=== PATIENT | male | born 1935 | race Caucasian/White ===

== ENCOUNTER → 2016-07-10 | Outpatient (CLI) | payer OTHER, MEDICARE ==
[~2016-07-10] MED LIST: ASPI-435 PO; LPT40 PO; LSX40 PO; MCRK20 PO; MGNO400 PO; MULT-506 PO; OMEGCAP2 PO; SYN25 PO; TPRSR/25 PO; ZRX5 PO
[2016-07-10 15:56] LABS: BLOOD UREA NITROGEN 64 mg/dl (7-18); BUN/CREATININE RATIO 37.5 (10-20); CALCIUM 9.2 mg/dl (8.5-10.1); CARBON DIOXIDE 32 mmol/L (21-32); CHLORIDE 102 mmol/L (98-107); GLUCOSE 94 mg/dl (70-99); SODIUM 141 mmol/L (136-145)
== END | disposition home or self-care (01) ==
LOC: C.LAB1850 13:59
PROVIDERS: ATTEND Internal Medicine Cardiovascular Disease
DX: I50.32 Chronic diastolic (congestive) heart failure (principal)

== ENCOUNTER → 2016-08-21 | Outpatient (CLI) | payer OTHER, MEDICARE ==
[2016-08-21 13:17] LABS: BLOOD UREA NITROGEN 33 mg/dl (7-18); BUN/CREATININE RATIO 23.4 (10-20); CALCIUM 9.3 mg/dl (8.5-10.1); CARBON DIOXIDE 28 mmol/L (21-32); CHLORIDE 108 mmol/L (98-107); GLUCOSE 101 mg/dl (70-99); POTASSIUM 4.5 mmol/L (3.5-5.1); SODIUM 143 mmol/L (136-145)
== END | disposition home or self-care (01) ==
LOC: C.LAB1850 11:52
PROVIDERS: ATTEND Internal Medicine Cardiovascular Disease
DX: I50.32 Chronic diastolic (congestive) heart failure (principal); N18.9 Chronic kidney disease, unspecified

== ENCOUNTER → 2016-10-12 | Outpatient (CLI) | payer OTHER, MEDICARE ==
[2016-10-12 14:41] LABS: HEMATOCRIT 47.3 % (42-52); MEAN CELL VOLUME 101.5 fL (80-100); MEAN CORPUSCULAR HEMOGLOBIN 33.9 pg (25-34); MEAN CORPUSCULAR HGB CONC 33.4 g/dl (32-36); MEAN PLATELET VOLUME 10.6 fL (7.4-10.4); PLATELET COUNT 154 K/uL (130-400); RED BLOOD COUNT 4.66 M/uL (4.7-6.1)
[2016-10-12 15:10] LABS: ALT/SGPT 29 U/L (12-78); AST/SGOT 31 U/L (15-37); BLOOD UREA NITROGEN 31 mg/dl (7-18); BUN/CREATININE RATIO 20.8 (10-20); CALCIUM 9.1 mg/dl (8.5-10.1); CARBON DIOXIDE 31 mmol/L (21-32); CHLORIDE 104 mmol/L (98-107); GLUCOSE 101 mg/dl (70-99); MAGNESIUM 2.3 mg/dl (1.8-2.4); POTASSIUM 4.4 mmol/L (3.5-5.1); SODIUM 141 mmol/L (136-145)
== END | disposition home or self-care (01) ==
LOC: C.LAB1850 13:48
PROVIDERS: ATTEND Internal Medicine Cardiovascular Disease
DX: I25.10 Atherosclerotic heart disease of native coronary artery without angina pectoris (principal); I50.32 Chronic diastolic (congestive) heart failure; N18.9 Chronic kidney disease, unspecified; I27.81 Cor pulmonale (chronic); I27.2 Other secondary pulmonary hypertension; Z95.2 Presence of prosthetic heart valve; I05.9 Rheumatic mitral valve disease, unspecified; I13.0 Hypertensive heart and chronic kidney disease with heart failure and stage 1 through stage 4 chronic kidney disease, or unspecified chronic kidney disease

== ENCOUNTER → 2017-03-05 | Outpatient (CLI) | payer OTHER, MEDICARE ==
[2017-03-05 12:54] LABS: BASO % 0.3 %; BASO ABS # 0.02 K/uL (0-0.2); IG% 0.5 %; LYMPH % 14.1 %; LYMPH ABS # 0.91 K/uL (1.2-3.4); MEAN CELL VOLUME 100.4 fL (80-100); MEAN CORPUSCULAR HEMOGLOBIN 33.5 pg (25-34); MEAN PLATELET VOLUME 10.3 fL (7.4-10.4); NEUT % 75.1 %; PLATELET COUNT 155 K/uL (130-400); RED BLOOD COUNT 4.68 M/uL (4.7-6.1); WHITE BLOOD COUNT 6.47 K/uL (4.8-10.8)
[2017-03-05 13:01] LABS: COMPLETE YES; MEAN CORPUSCULAR HGB CONC 33.4 g/dl (32-36)
[2017-03-05 13:09] LABS: C-REACTIVE PROTEIN 2.05 mg/dl (0-0.29); URIC ACID 9.8 mg/dl (2.6-7.2)
== END | disposition home or self-care (01) ==
LOC: C.LAB 12:28
PROVIDERS: ATTEND Physician Assistant
DX: M25.532 Pain in left wrist (principal)

== ENCOUNTER 2017-06-13 23:21 | Emergency (ER) | payer OTHER, MEDICARE ==
[~2017-06-13] VITALS: Ht 175.3 cm; Wt 78.7 kg
[2017-06-13 23:30] VITALS: O2SAT 82
[2017-06-13 23:38] VITALS: TEMP 36.4; Ht 175.3 cm; Wt 78.7 kg
[2017-06-13 23:57] LABS: BASO % 0.4 %; BASO ABS # 0.02 K/uL (0-0.2); EOS % 6.2 %; EOS ABS # 0.32 K/uL (0-0.5); HEMATOCRIT 47.3 % (42-52); HEMOGLOBIN 15.6 g/dL (14.0-18.0); IG# 0.01 K/uL (0.00-0.02); LYMPH % 24.7 %; LYMPH ABS # 1.28 K/uL (1.2-3.4); MEAN CELL VOLUME 102.8 fL (80-100); MEAN CORPUSCULAR HEMOGLOBIN 33.9 pg (25-34); MEAN PLATELET VOLUME 11.4 fL (7.4-10.4); MONO % 10.2 %; MONO ABS # 0.53 K/uL (0.11-0.59); NEUT % 58.3 %; NEUT ABS # 3.03 K/uL (1.4-6.5); PLATELET COUNT 172 K/uL (130-400); RED CELL DISTRIBUTION WIDTH CV 17.3 % (11.5-14.5); RED CELL DISTRIBUTION WIDTH SD 65.1 fL (36.4-46.3); WHITE BLOOD COUNT 5.19 K/uL (4.8-10.8)
[2017-06-14] MEDS ORDERED: ZRX5 PO (00:50)
[2017-06-14] MEDS ORDERED: POTA-639 PO (00:50)
[2017-06-14 01:11] LABS: BLOOD UREA NITROGEN 36 mg/dl (7-18); CREATININE 1.84 mg/dl (0.60-1.40); GLUCOSE 93 mg/dl (70-99)
[2017-06-14 01:12] LABS: ALBUMIN 2.8 gm/dl (3.4-5.0); ALT/SGPT 18 U/L (12-78); AST/SGOT 33 U/L (15-37); CALCIUM 8.3 mg/dl (8.5-10.1); CARBON DIOXIDE 26 mmol/L (21-32); POTASSIUM 3.4 mmol/L (3.5-5.1); SODIUM 140 mmol/L (136-145)
[2017-06-14 01:17] LABS: ALKALINE PHOSPHATASE 350 U/L (45-117); TOTAL PROTEIN 7.7 gm/dl (6.4-8.2)
[2017-06-14 01:20] LABS: INR 1.3 (0.9-1.1); PTT PATIENT 34.7 SECONDS (21.0-31.0)
--- NOTE | 2017-06-14 03:08 | EMERGENCY ROOM VISIT NOTE ---
History Report prepared by [place]: Inderjit Friend Under the Supervision of: Dr. Margarita James D.O. First contact with patient: 23:23 Chief Complaint: SYNCOPE Stated Complaint: SYNCOPAL EPISODE History of Present Illness The patient is a 81 year old male who presents to the Emergency Room by EMS with complaints of a syncopal episode occurring just prior to arrival. Per EMS, the patient was out drinking with his friends tonight, and upon arriving home had a syncopal episode. The patient admits to drinking 2-3 drinks tonight. Nursing staff notes that the patient's nail beds and skin appear blue, and his oxygen saturations are in the 80's on supplemental oxygen. The patient notes that he recently had his dosage of diuretics increased due to fluid retention. He adds that he had an episode of confusion prior to his syncopal episode. He denies feeling dizzy or lightheaded during the episode of confusion. The patient denies shortness of breath. He has a history of CABG. He is supposed to be on supplemental oxygen all the time, but admits that he does not wear it occasionally. The patient notes that he has a sore on his left foot which he has been picking at, but states that overall his legs appear normal for him. Source of History: patient, EMS, nursing staff Onset: Just prior to arrival Quality: other (syncope) Timing: other (episode) Note: Additional symptoms: confusion prior to episode. He denies lightheadedness, or dizziness. Review of Systems See HPI for pertinent positives & negatives. A total of 10 systems reviewed and were otherwise negative. Past Medical & Surgical Medical Problems: (1) Aortic regurgitation (2) CAD (coronary artery disease) (3) CHF (congestive heart failure) (4) Chronic right-sided CHF (congestive heart failure) (5) CKD (chronic kidney disease), stage IV (6) Cor pulmonale (7) Dyslipidemia (8) Hypertension (9) Pulmonary HTN (10) Pulmonary hypertension Surgical Problems: (1) History of nasal surgery (2) Hx of tonsillectomy (3) S/P CABG x 4 (4) Status post mitral valve replacement Family History No pertinent family history Social History Smoking Status: Former Smoker Alcohol Use: none Drug Use: none Marital Status: Housing Status: lives with family Occupation Status: retired Current/Historical Medications Scheduled Aspirin (Aspirin 81), 162 MG PO DAILY Atorvastatin (Atorvastatin Calcium), 40 MG PO DAILY Furosemide (Furosemide), 80 MG PO BID Magnesium Oxide (Magnesium-Oxide), 400 MG PO QAM Metolazone (Metolazone), 5 MG PO DAILY Metoprolol Succinate (Metoprolol Succinate ER), 25 MG PO Q2D Potassium Ext Rel (Klor-Con), 40 MEQ PO BID Allergies Coded Allergies: No Known Allergies (Unverified , 06/14/17) Physical Exam Vital Signs Date Time Temp Pulse Resp B/P (MAP) Pulse Ox O2 Delivery O2 Flow Rate FiO2 06/14/17 03:39 71 18 131/81 93 06/14/17 03:05 81 06/14/17 02:09 94 16 116/77 94 Nasal Cannula 2.0 97 126/82 98 125/82 06/14/17 00:38 74 18 107/53 96 Non-Rebreather 15.0 06/13/17 23:38 36.4 73 18 95/56 95 Non-Rebreather 15.0 06/13/17 23:30 82 Nasal Cannula 4.0 06/13/17 23:29 78 Physical Exam GENERAL: alert, well appearing, well nourished, no distress, non-toxic EYE EXAM: normal conjunctiva, PERRL and EOM's grossly intact OROPHARYNX: no exudate, no erythema, lips, buccal mucosa, and tongue normal and mucous membranes are moist NECK: supple, no nuchal rigidity, no adenopathy, non-tender LUNGS: Clear to auscultation. Normal chest wall mechanics HEART: no murmurs, S1 normal and S2 normal ABDOMEN: abdomen soft, non-tender, normo-active bowel sounds, no masses, no rebound or guarding. BACK: Back is symmetrical on inspection and there is no deformity, no midline tenderness, no CVA tenderness. SKIN: no rashes and no bruising UPPER EXTREMITIES: upper extremities are grossly normal. LOWER EXTREMITIES: Chronic venous stasis changes bilaterally. Diminished DP pulses bilaterally but equal. 4 cm healing wound to the anterior aspect of the distal RLE. No surrounding, erythema or drainage. NEURO EXAM: Normal sensorium, cranial nerves II-XII grossly intact, normal speech, no gross weakness of arms, no gross weakness of legs. Medical Decision & Procedures ER Provider Diagnostic Interpretation: One View Chest X-ray interpreted by me: No effusions. Mild cardiomegaly. Sternotomy wires noted. No focal infiltrate. No wide mediastinum. No significant change compared to prior. CT results per statrad and my review. CT HEAD: No acute intracranial hemorrhage. No evidence of intracranial mass, extra-axial fluid collection, or acute territorial infarct. White matter hypodensities, which are nonspecific but most likely related to chronic small vessel ischemic changes. Global cerebral volume loss. Visualized paranasal sinuses and mastoid air cells are clear. Laboratory Results 06/13/17 23:33 Red Blood Count 4.60, Mean Corpuscular Volume 102.8, Mean Corpuscular Hemoglobin 33.9, Mean Corpuscular Hemoglobin Concent 33.0, Mean Platelet Volume 11.4, Neutrophils (%) (Auto) 58.3, Lymphocytes (%) (Auto) 24.7, Monocytes (%) ( Auto) 10.2, Eosinophils (%) (Auto) 6.2, Basophils (%) (Auto) 0.4, Neutrophils # (Auto) 3.03, Lymphocytes # (Auto) 1.28, Monocytes # (Auto) 0.53, Eosinophils # ( Auto) 0.32, Basophils # (Auto) 0.02 06/14/17 00:09 Test 06/13/17 23:33 06/14/17 00:09 06/14/17 01:03 06/14/17 03:02 White Blood Count 5.19 K/uL (4.8-10.8) Red Blood Count 4.60 M/uL (4.7-6.1) Hemoglobin 15.6 g/dL (14.0-18.0) Hematocrit 47.3 % (42-52) Mean Corpuscular Volume 102.8 fL (80-100) Mean Corpuscular Hemoglobin 33.9 pg (25-34) Mean Corpuscular Hemoglobin Concent 33.0 g/dl (32-36) Platelet Count 172 K/uL (130-400) Mean Platelet Volume 11.4 fL (7.4-10.4) Neutrophils (%) (Auto) 58.3 % Lymphocytes (%) (Auto) 24.7 % Monocytes (%) (Auto) 10.2 % Eosinophils (%) (Auto) 6.2 % Basophils (%) (Auto) 0.4 % Neutrophils # (Auto) 3.03 K/uL (1.4-6.5) Lymphocytes # (Auto) 1.28 K/uL (1.2-3.4) Monocytes # (Auto) 0.53 K/uL (0.11-0.59) Eosinophils # (Auto) 0.32 K/uL (0-0.5) Basophils # (Auto) 0.02 K/uL (0-0.2) RDW Standard Deviation 65.1 fL (36.4-46.3) RDW Coefficient of Variation 17.3 % (11.5-14.5) Immature Granulocyte % (Auto) 0.2 % Immature Granulocyte # (Auto) 0.01 K/uL (0.00-0.02) Anion Gap 10.0 mmol/L (3-11) Est Creatinine Clear Calc Drug Dose 32.0 ml/min Estimated GFR () 39.2 Estimated GFR (Non- 33.9 BUN/Creatinine Ratio 19.5 (10-20) Calcium Level 8.3 mg/dl (8.5-10.1) Magnesium Level 2.3 mg/dl (1.8-2.4) Total Bilirubin 2.1 mg/dl (0.2-1) Aspartate Amino Transf (AST/SGOT) 33 U/L (15-37) Alanine Aminotransferase (ALT/SGPT) 18 U/L (12-78) Alkaline Phosphatase 350 U/L (45-117) Troponin I < 0.015 ng/ml (0-0.045) Pro-B-Type Natriuretic Peptide 2020 pg/ml (0-1800) Total Protein 7.7 gm/dl (6.4-8.2) Albumin 2.8 gm/dl (3.4-5.0) Globulin 4.9 gm/dl (2.5-4.0) Albumin/Globulin Ratio 0.6 (0.9-2) Ethyl Alcohol mg/dL 160.0 mg/dl (0-3) Prothrombin Time 14.0 SECONDS (9.0-12.0) Prothromb Time International Ratio 1.3 (0.9-1.1) Activated Partial Thromboplast Time 34.7 SECONDS (21.0-31.0) Partial Thromboplastin Ratio 1.3 Bedside Troponin I < 0.030 ng/ml (0-0.045) Laboratory results per my review. ECG Indication: syncope Rate (beats per minute): 77 Rhythm: normal sinus Findings: RBBB, T-wave inversion (V1-V5, 2, 3, and AVF), other (RAD. ) Comparison ECG Date: Apr 18, 2016 Change: T-wave inversion in V5 is new. ED Course 2327: The patient was evaluated in room A2. A complete history and physical exam was performed. 0206: I reassessed the patient. He feels fine. He has ambulated without problem and would like to go home. now bedside and provided additional information. 0320: Upon reevaluation, the patient is feeling better. I discussed the findings and the treatment plan with the patient. He verbalizes agreement and understanding. The patient was discharged home. Medical Decision Differential diagnosis: Etiologies such as metabolic, infection, hypoglycemia, electrolyte abnormalities , cardiac sources, intracerebral event, toxicologic, neurologic, as well as others were entertained. Patient's vital signs stable throughout, patient well-appearing, and oxygen saturations within acceptable range for patient on his usual amount of home oxygen. Patient admits to being noncompliant with wearing his home oxygen. Patient admits to alcohol this evening, denies syncopal event or any other symptoms. Upon additional discussion with the , she stated patient began appearing weak it was hard to walk seemed slightly confused and she was unsure if it was him having a stroke or related to his alcohol use. Discussed all symptoms with the patient and at bedside. Patient ambulated here with a steady gait, and denied any symptoms during ambulation. Orthostatics negative. Advised against alcohol consumption given his extensive medical history including significant cardiac comorbidity. Patient had no focal or lateralizing findings on neuro exam at bedside. I did not feel patient suffered a stroke. I feel this is more likely related to patient's alcohol consumption this evening. Patient's other labs appear stable compared to prior lab work. No evidence of acute infectious etiology. Troponins negative 2 and patient with no symptoms to suggest ACS. Doubt acute vascular etiology. comfortable taking the patient home. Discussed with follow-up with family doctor as a precaution, symptoms to watch and return for, he verbalized understanding and was agreeable with plan. Medication Reconcilliation Current Medication List: was personally reviewed by me Blood Pressure Screening Patient's blood pressure: Normal blood pressure Blood pressure disposition: Did not require urgent referral Impression Primary Impression: Alcohol intoxication Additional Impression: Near syncope Scribe Attestation The scribe's documentation has been prepared under my direction and personally reviewed by me in its entirety. I confirm that the note above accurately reflects all work, treatment, procedures, and medical decision making performed by me. Departure Information Dispostion Home / Self-Care Referrals Camden Robertson P.A. (PCP) Patient Instructions My [facility] Additional Instructions Please continue regular medications as prescribed. Please be careful when consuming alcohol given your significant past medical history and current medication list. Please follow up with your family doctor as a precaution. If you have any recurrent episodes similar to tonight, develop confusion, lightheadedness, feel unsteady when you walk, develop chest pain, trouble breathing, vomiting, headaches, vision changes, notice redness or drainage from the wound on your right leg, have increased swelling in her lower extremities, or you've any other new concerns, please return the emergency room. Problem Qualifiers Primary Impression: Alcohol intoxication Complication of substance-induced condition: uncomplicated Qualified Codes: F10.920 - Alcohol use, unspecified with intoxication, uncomplicated
[2017-06-14 03:39] VITALS: BP 131/81; PULSE 71; O2SAT 93
--- NOTE | 2017-06-14 09:36 | DIAGNOSTIC IMAGING REPORT ---
CT SCAN OF THE BRAIN WITHOUT IV CONTRAST CLINICAL HISTORY: Change in mental status. Syncope. COMPARISON STUDY: No priors. TECHNIQUE: Unenhanced axial CT scan of the brain is performed from the vertex to the skull base. A dose lowering technique was utilized adhering to the principles of ALARA. CT DOSE: 614.27 mGy.cm FINDINGS: Brain parenchyma: There are age-related involutional changes noting moderate subcortical and periventricular microangiopathic change. There is no hemorrhage, mass effect, or evidence of acute territorial ischemia by CT criteria. Small chronic lacunar infarcts identified in the right cerebellar hemisphere. Douglass-white matter is preserved. No extra-axial fluid collection is seen. Ventricles, sulci, cisterns: Prominent secondary to involutional change. Intracranial vasculature: There is atherosclerotic calcification of the cavernous carotid and vertebral arteries. Calvarium: Unremarkable. Sinuses and mastoids: Trace mucosal thickening is seen within the maxillary antra. The remaining visualized paranasal sinuses are clear. There is a trace right mastoid effusion. The left mastoid air cells are well pneumatized. Orbits: The bony orbits are grossly intact. IMPRESSION: There is no hemorrhage, mass effect, or evidence of acute territorial ischemia by CT criteria. Electronically signed by: Tej Lu M.D. 06/14/2017 9:35 AM Dictated Date/Time: 06/14/2017 9:33 AM
--- NOTE | 2017-06-14 10:33 | DIAGNOSTIC IMAGING REPORT ---
SINGLE VIEW CHEST CLINICAL HISTORY: Hypoxia. FINDINGS: An AP, portable, upright chest radiograph is compared to study dated 05/14/2016. The examination is significantly degraded by portable technique and patient rotation. The patient is status post midline sternotomy and cardiac valve surgery. The heart is enlarged and there is atherosclerotic calcification of the thoracic aorta. There is mild prominence of the central pulmonary vessels. Chronic elevation of right hemidiaphragm and bibasilar atelectasis is similar to previous. No airspace consolidation or large pleural effusion is identified. No pneumothorax is seen. The skeletal structures are osteopenic. The bony thorax is grossly intact. IMPRESSION: 1. Cardiomegaly with prominence of the central pulmonary vessels. Correlate clinically for evidence of mild congestive change. 2. No airspace consolidation or large pleural effusion is identified. Electronically signed by: Tej Lu M.D. 06/14/2017 10:31 AM Dictated Date/Time: 06/14/2017 10:28 AM
[2017-09-06] MEDS ORDERED: CEPH500C PO (08:03)
[2017-09-17] MEDS ORDERED: ELQ25 PO (10:31)
[2017-09-17] MEDS ORDERED: POTA10PO PO (10:31)
[2017-09-17] MEDS ORDERED: TPRSR25 PO (10:31)
[2017-09-17] MEDS ORDERED: ASPI-320 PO (10:32)
[2017-09-17] MEDS ORDERED: DXY100 PO (11:25)
[2017-10-15] MEDS ORDERED: PRD/1 PO (13:21)
== END 2017-06-14 03:39 | disposition home or self-care (01) ==
LOC: EDBD 23:21 → C.EDA 23:23
DX: F10.920 Alcohol use, unspecified with intoxication, uncomplicated (principal); R55 Syncope and collapse; I25.10 Atherosclerotic heart disease of native coronary artery without angina pectoris; I13.0 Hypertensive heart and chronic kidney disease with heart failure and stage 1 through stage 4 chronic kidney disease, or unspecified chronic kidney disease; N18.4 Chronic kidney disease, stage 4 (severe); I27.20 Pulmonary hypertension, unspecified; E78.5 Hyperlipidemia, unspecified; I50.812 Chronic right heart failure; Z91.19 Patient's noncompliance with other medical treatment and regimen; Z87.891 Personal history of nicotine dependence; Z95.1 Presence of aortocoronary bypass graft; Z95.2 Presence of prosthetic heart valve; Z90.89 Acquired absence of other organs; Z98.890 Other specified postprocedural states; Z79.82 Long term (current) use of aspirin; Z79.899 Other long term (current) drug therapy

== ENCOUNTER → 2017-07-28 | Outpatient (CLI) | payer OTHER, MEDICARE ==
[~2017-07-28] MED LIST changes: -MCRK20 PO; -MULT-506 PO; -OMEGCAP2 PO; +POTA20TA16 PO; -SYN25 PO
[2017-07-28 14:43] LABS: HEMATOCRIT 50.6 % (42-52); MEAN CELL VOLUME 103.3 fL (80-100); MEAN CORPUSCULAR HEMOGLOBIN 34.7 pg (25-34); MEAN CORPUSCULAR HGB CONC 33.6 g/dl (32-36); MEAN PLATELET VOLUME 10.8 fL (7.4-10.4); PLATELET COUNT 169 K/uL (130-400); RED CELL DISTRIBUTION WIDTH CV 15.8 % (11.5-14.5); WHITE BLOOD COUNT 6.37 K/uL (4.8-10.8)
[2017-07-28 15:04] LABS: ALT/SGPT 19 U/L (12-78); AST/SGOT 31 U/L (15-37); BLOOD UREA NITROGEN 31 mg/dl (7-18); CALCIUM 9.2 mg/dl (8.5-10.1); CARBON DIOXIDE 27 mmol/L (21-32); CHOLESTEROL 85 mg/dl (0-200); CREATININE 1.48 mg/dl (0.60-1.40); GLUCOSE 68 mg/dl (70-99); POTASSIUM 3.9 mmol/L (3.5-5.1); SODIUM 139 mmol/L (136-145)
[2017-07-28 15:07] LABS: LDL CHOLESTEROL CALCULATED 28 mg/dl
== END | disposition home or self-care (01) ==
LOC: C.LAB1850 13:00
PROVIDERS: ATTEND Internal Medicine Cardiovascular Disease
DX: E78.5 Hyperlipidemia, unspecified (principal); I27.20 Pulmonary hypertension, unspecified; N18.9 Chronic kidney disease, unspecified; I05.9 Rheumatic mitral valve disease, unspecified; I50.32 Chronic diastolic (congestive) heart failure; I27.81 Cor pulmonale (chronic)

== ENCOUNTER 2017-09-14 12:12 | Inpatient (IN) | payer OTHER, MEDICARE ==
[2017-09-14] VITALS (9 sets, daily range): BP systolic 87–100; BP diastolic 56–66; PULSE 86–97; TEMP 36.3–36.7; O2SAT 80–91; BMI 28.2
[~2017-09-14] VITALS: Ht 175.3 cm; Wt 86.7 kg
[~2017-09-14 12:12] MED LIST changes: +CEPH500C PO
[2017-09-14] MEDS ORDERED: POTA10PO PO (12:45)
--- NOTE | 2017-09-14 12:53 | DIAGNOSTIC IMAGING REPORT ---
CHEST ONE VIEW PORTABLE CLINICAL HISTORY: 81 years-old Male presenting with Sepsis. TECHNIQUE: Portable upright AP view of the chest was obtained. COMPARISON: 06/13/2017. FINDINGS: Median sternotomy wires and prosthetic mitral valve noted. Cardiac silhouette mildly enlarged. Chronic elevation of the left hemidiaphragm. No focal opacity. No large effusion or pneumothorax. Osseous structures normal. Upper abdomen normal. IMPRESSION: 1. Mild cardiomegaly. Otherwise no acute cardiopulmonary disease. Electronically signed by: Boris Fleming M.D. 09/14/2017 12:52 PM Dictated Date/Time: 09/14/2017 12:50 PM
[2017-09-14 12:54] LABS: BASO % 0.1 %; BASO ABS # 0.02 K/uL (0-0.2); EOS % 0.1 %; EOS ABS # 0.01 K/uL (0-0.5); HEMATOCRIT 47.8 % (42-52); HEMOGLOBIN 16.4 g/dL (14.0-18.0); IG# 0.04 K/uL (0.00-0.02); LYMPH % 4.8 %; LYMPH ABS # 0.75 K/uL (1.2-3.4); MEAN CELL VOLUME 99.2 fL (80-100); MEAN CORPUSCULAR HGB CONC 34.3 g/dl (32-36); MEAN PLATELET VOLUME 10.3 fL (7.4-10.4); MONO % 6.3 %; MONO ABS # 0.98 K/uL (0.11-0.59); NEUT % 88.4 %; NEUT ABS # 13.69 K/uL (1.4-6.5); PLATELET COUNT 139 K/uL (130-400); RED CELL DISTRIBUTION WIDTH CV 16.8 % (11.5-14.5); WHITE BLOOD COUNT 15.49 K/uL (4.8-10.8)
[2017-09-14] MEDS ORDERED: ONDANSETRON INJ 2 MG/ML 2 ML VIAL ONE (13:13)
[2017-09-14 13:21] LABS: ALBUMIN 2.2 gm/dl (3.4-5.0); ALKALINE PHOSPHATASE 283 U/L (45-117); ALT/SGPT 26 U/L (12-78); BLOOD UREA NITROGEN 37 mg/dl (7-18); CALCIUM 8.3 mg/dl (8.5-10.1); CARBON DIOXIDE 21 mmol/L (21-32); CKMB 8.1 ng/ml (0.5-3.6); CREATININE 1.64 mg/dl (0.60-1.40); GLUCOSE 88 mg/dl (70-99); LIPASE 67 U/L (73-393); PHOSPHORUS 3.3 mg/dl (2.5-4.9); SODIUM 135 mmol/L (136-145); TOTAL PROTEIN 6.4 gm/dl (6.4-8.2)
[2017-09-14] MEDS ORDERED: OPTIRAY 320 IV PRN (13:30)
--- NOTE | 2017-09-14 14:11 | DIAGNOSTIC IMAGING REPORT ---
CT ANGIOGRAM OF THE CHEST CLINICAL HISTORY: Shortness of breath. Possible pulmonary embolism. COMPARISON STUDY: Chest x-ray dated 09/14/2017 TECHNIQUE: Following the IV administration of 116 mL of [id number]-320, CT angiogram of the thorax was performed from the thoracic inlet to the lung bases utilizing the pulmonary embolus protocol. Images are reviewed in the axial, sagittal, and coronal planes. IV contrast was administered without complication. MIP imaging was performed. A dose lowering technique was utilized adhering to the principles of ALARA. CT DOSE: 500.98 mGycm FINDINGS: There are postsurgical changes of midline sternotomy and mitral valve replacement. Mediastinal lymph nodes are the upper limits of normal in size. There is elevation of the right hemidiaphragm. There was no evidence of thoracic aortic dilatation. There is suboptimal opacification of the lower lobe peripheral branches. No central or upper lobe emboli are visualized. There is a small right pleural effusion Right lower lobe airspace opacities are likely atelectatic. The left lung is clear. There is trace ascites. IMPRESSION: 1. Suboptimal lower lobe pulmonary arterial opacification. No central emboli are visualized. If there is a strong suspicion over pulmonary embolism, correlation with serial leg ultrasonography would be recommended. 2. Elevation right hemidiaphragm. Small right pleural effusion. Right basilar airspace opacities likely representing compressive atelectasis 3. Trace ascites Electronically signed by: Pj Poe M.D. 09/14/2017 2:09 PM Dictated Date/Time: 09/14/2017 2:04 PM
[2017-09-14 14:21] LABS: INR 1.5 (0.9-1.1); PTT PATIENT 33.4 SECONDS (21.0-31.0)
[2017-09-14 14:24] LABS: POTASSIUM 4.1 mmol/L (3.5-5.1)
[2017-09-14] MEDS ORDERED: SODIUM CHLORIDE 0.9% 1000ML 1,000 ML IV STA (14:52)
[2017-09-14] MEDS ORDERED: CEFTRIAXONE SOD INJ 1 GM ADDVIAL IV STA (14:52)
[2017-09-14] MEDS ORDERED: SODIUM CHLORIDE 0.9% 500ML 500 ML IV STA (14:54)
--- NOTE | 2017-09-14 14:59 | EMERGENCY ROOM VISIT NOTE ---
History Report prepared by [place]: Inderjit Friend Under the Supervision of: Dr. Clive Tee D.O. First contact with patient: 12:18 Chief Complaint: SHORTNESS OF BREATH Stated Complaint: SOB History of Present Illness The patient is a 81 year old male who presents to the Emergency Room by EMS with complaints of constant shortness of breath beginning about a year ago. He has a history of CHF. He is supposed to be on 2 L of supplemental oxygen at home , but has not been wearing it. The patient's oxygen saturation was found to be 75% on room air today. He notes that he has a wound on his right leg which he sees the wound clinic for once a week. His shortness of breath is not worsened with laying flat, or movement. The patient denies any fevers, or cough. He notes that he urinated many times last night. He is not on any blood thinners. The patient had CABGx4 a few years ago and has been supposed to be on oxygen since then. He most recently took his Lasix one week ago. He is supposed to be on Keflex for the wound infection of his right leg, but has not been taking it. The patient adds that he had swelling to his penis last night. Source of History: patient Onset: About a year ago Symptom Intensity: oxygen saturation of 75% today Quality: other (shortness of breath) Timing: constant Associated Symptoms: + urinary symptoms (increased frequency last night), No fevers, No cough Note: Additional symptoms: penile swelling. Review of Systems See HPI for pertinent positives & negatives. A total of 10 systems reviewed and were otherwise negative. Past Medical & Surgical Medical Problems: (1) Acute respiratory failure (2) Aortic regurgitation (3) CAD (coronary artery disease) (4) CHF (congestive heart failure) (5) Chronic right-sided CHF (congestive heart failure) (6) CKD (chronic kidney disease), stage IV (7) Cor pulmonale (8) Dyslipidemia (9) Hypertension (10) Pulmonary HTN (11) Pulmonary hypertension Surgical Problems: (1) History of nasal surgery (2) Hx of tonsillectomy (3) S/P CABG x 4 (4) Status post mitral valve replacement Family History No pertinent family history Social History Smoking Status: Never Smoker Alcohol Use: none Drug Use: none Marital Status: Housing Status: lives with family Occupation Status: retired Current/Historical Medications Scheduled Aspirin (Aspirin 81), 162 MG PO DAILY Atorvastatin (Lipitor), 40 MG PO DAILY Furosemide (Furosemide), 80 MG PO BID Magnesium Oxide (Magnesium-Oxide), 400 MG PO QAM Metolazone (Metolazone), 5 MG PO DAILY Metoprolol Succinate (Metoprolol Succinate ER), 25 MG PO BID Potassium Chloride (Potassium Chloride), 20 MEQ PO DAILY Allergies Coded Allergies: No Known Allergies (Unverified , 09/14/17) Physical Exam Vital Signs Date Time Temp Pulse Resp B/P (MAP) Pulse Ox O2 Delivery O2 Flow Rate FiO2 09/14/17 16:00 93 18 91 Oxymask 8.0 09/14/17 15:31 89/64 09/14/17 15:30 95 22 90 Oxymask 8.0 09/14/17 15:01 82/56 09/14/17 15:00 92 19 93 Oxymask 8.0 09/14/17 14:34 93 16 83/58 92 Oxymask 8.0 09/14/17 13:59 94 16 94/65 87 Oxymask 8.0 09/14/17 13:00 97 18 81/57 85 Oxymask 8.0 09/14/17 12:31 84 Oxymask 8.0 09/14/17 12:24 102 09/14/17 12:21 75 Room Air 09/14/17 12:21 37.0 103 18 83/57 75 Room Air 09/14/17 12:21 75 Room Air Physical Exam GENERAL: Patient is awake, alert, and very anxious appearing. Appears to be in significant distress. EYES: The conjunctivae are clear. The pupils are round and reactive. EARS, NOSE, MOUTH AND THROAT: The nose is without any evidence of any deformity. Mucous membranes are moist, tongue is midline. Cyanotic lips. NECK: The neck is nontender and supple. RESPIRATORY: Diminished lung sounds throughout. Significant tachypnea and conversational dyspnea,. CARDIOVASCULAR: Loud systolic murmur to auscultation. Tachycardic rate. GASTROINTESTINAL: The abdomen is soft. Bowel sounds are present in all quadrants. Abdomen is nontender : Significant scrotal and penile swelling noted on exam. MUSCULOSKELETAL/EXTREMITIES: There is no evidence of gross deformity full range of motion is noted in the hips and shoulders SKIN: There is no obvious evidence of any rash. There are no petechiae, pallor or cyanosis noted. Pedal edema bilaterally, right greater than left. Edema wrap noted in RLE. NEUROLOGIC: Patient is awake alert and oriented x3. Medical Decision & Procedures ER Provider Diagnostic Interpretation: Radiology results as stated below per my review and radiologist interpretation: CHEST ONE VIEW PORTABLE FINDINGS: Median sternotomy wires and prosthetic mitral valve noted. Cardiac silhouette mildly enlarged. Chronic elevation of the left hemidiaphragm. No focal opacity. No large effusion or pneumothorax. Osseous structures normal. Upper abdomen normal. IMPRESSION: 1. Mild cardiomegaly. Otherwise no acute cardiopulmonary disease. Electronically signed by: Boris Fleming M.D. 09/14/2017 12:[address] ANGIOGRAM OF THE CHEST FINDINGS: There are postsurgical changes of midline sternotomy and mitral valve replacement. Mediastinal lymph nodes are the upper limits of normal in size. There is elevation of the right hemidiaphragm. There was no evidence of thoracic aortic dilatation. There is suboptimal opacification of the lower lobe peripheral branches. No central or upper lobe emboli are visualized. There is a small right pleural effusion Right lower lobe airspace opacities are likely atelectatic. The left lung is clear. There is trace ascites. IMPRESSION: 1. Suboptimal lower lobe pulmonary arterial opacification. No central emboli are visualized. If there is a strong suspicion over pulmonary embolism, correlation with serial leg ultrasonography would be recommended. 2. Elevation right hemidiaphragm. Small right pleural effusion. Right basilar airspace opacities likely representing compressive atelectasis 3. Trace ascites Electronically signed by: Pj Poe M.D. 09/14/2017 2:09 PM Laboratory Results 09/14/17 12:41 Red Blood Count 4.82, Mean Corpuscular Volume 99.2, Mean Corpuscular Hemoglobin 34.0, Mean Corpuscular Hemoglobin Concent 34.3, Mean Platelet Volume 10.3, Neutrophils (%) (Auto) 88.4, Lymphocytes (%) (Auto) 4.8, Monocytes (%) (Auto) 6.3, Eosinophils (%) (Auto) 0.1, Basophils (%) (Auto) 0.1, Neutrophils # (Auto) 13.69, Lymphocytes # (Auto) 0.75, Monocytes # (Auto) 0.98, Eosinophils # (Auto) 0.01, Basophils # (Auto) 0.02 09/14/17 12:41 09/14/17 13:30 Test 09/14/17 12:41 09/14/17 12:46 09/14/17 12:55 09/14/17 13:30 White Blood Count 15.49 K/uL (4.8-10.8) Red Blood Count 4.82 M/uL (4.7-6.1) Hemoglobin 16.4 g/dL (14.0-18.0) Hematocrit 47.8 % (42-52) Mean Corpuscular Volume 99.2 fL (80-100) Mean Corpuscular Hemoglobin 34.0 pg (25-34) Mean Corpuscular Hemoglobin Concent 34.3 g/dl (32-36) Platelet Count 139 K/uL (130-400) Mean Platelet Volume 10.3 fL (7.4-10.4) Neutrophils (%) (Auto) 88.4 % Lymphocytes (%) (Auto) 4.8 % Monocytes (%) (Auto) 6.3 % Eosinophils (%) (Auto) 0.1 % Basophils (%) (Auto) 0.1 % Neutrophils # (Auto) 13.69 K/uL (1.4-6.5) Lymphocytes # (Auto) 0.75 K/uL (1.2-3.4) Monocytes # (Auto) 0.98 K/uL (0.11-0.59) Eosinophils # (Auto) 0.01 K/uL (0-0.5) Basophils # (Auto) 0.02 K/uL (0-0.2) RDW Standard Deviation 61.0 fL (36.4-46.3) RDW Coefficient of Variation 16.8 % (11.5-14.5) Immature Granulocyte % (Auto) 0.3 % Immature Granulocyte # (Auto) 0.04 K/uL (0.00-0.02) Erythrocyte Sedimentation Rate 26 mm/hr (0-14) Anion Gap 9.0 mmol/L (3-11) Est Creatinine Clear Calc Drug Dose 40.7 ml/min Estimated GFR () 45.1 Estimated GFR (Non- 38.9 BUN/Creatinine Ratio 22.5 (10-20) Calcium Level 8.3 mg/dl (8.5-10.1) Phosphorus Level 3.3 mg/dl (2.5-4.9) Total Bilirubin 3.6 mg/dl (0.2-1) Alanine Aminotransferase (ALT/SGPT) 26 U/L (12-78) Alkaline Phosphatase 283 U/L (45-117) Creatine Kinase MB 8.1 ng/ml (0.5-3.6) Creatine Kinase MB Ratio (0-3.0) Troponin I 0.949 ng/ml (0-0.045) C-Reactive Protein 4.97 mg/dl (0-0.29) Pro-B-Type Natriuretic Peptide 9792 pg/ml (0-1800) Total Protein 6.4 gm/dl (6.4-8.2) Albumin 2.2 gm/dl (3.4-5.0) Globulin 4.2 gm/dl (2.5-4.0) Albumin/Globulin Ratio 0.5 (0.9-2) Lipase 67 U/L (73-393) Bedside Lactic Acid Venous 2.79 mmol/L (0.90-1.70) Venous Blood pH 7.45 (7.36-7.41) Venous Blood Partial Pressure CO2 36 mmHg (38.0-50.0) Venous Blood Partial Pressure O2 26 mmHg Venous Blood HCO3 24 mmol/L Venous Blood Oxygen Saturation < 60.0 % Venous Blood Base Excess 0.6 mEq/L Prothrombin Time 15.9 SECONDS (9.0-12.0) Prothromb Time International Ratio 1.5 (0.9-1.1) Activated Partial Thromboplast Time 33.4 SECONDS (21.0-31.0) Partial Thromboplastin Ratio 1.3 Magnesium Level 2.2 mg/dl (1.8-2.4) Aspartate Amino Transf (AST/SGOT) 35 U/L (15-37) Total Creatine Kinase 131 U/L (39-308) Laboratory results per my review. Medications Administered Medications (Trade) Dose Ordered Sig/Bakari Route Start Time Stop Time Status Last Admin Dose Admin Ondansetron HCl (Zofran Inj) 4 mg STK-MED ONCE .ROUTE 09/14/17 13:13 09/14/17 13:14 DC 09/14/17 13:15 4 MG Ceftriaxone Sodium (Rocephin Inj) 1 gm NOW STAT IV 09/14/17 14:52 09/14/17 14:54 DC 09/14/17 15:20 1 GM Sodium Chloride 500 ml @ 999 mls/hr Q31M STAT IV 09/14/17 14:54 09/14/17 15:24 DC 09/14/17 15:20 999 MLS/HR ECG Per My Interpretation Indication: SOB/dyspnea Rate (beats per minute): 101 Rhythm: sinus tachycardia Findings: RBBB, other (No PVCs. ) Comparison ECG Date: 06/13/17 Change: no significant change ED Course 1223: The patient was evaluated in room A2. A complete history and physical examination were performed. 1313: Ordered Zofran Inj 4 mg IV. 1450: Upon reevaluation, the patient is resting comfortably. I discussed results and treatment plan with him. He verbalizes agreement and understanding. I spoke with Dian Rm PA-C of the [facility]. The patient will be evaluated for further management and care. Medical Decision Differential diagnosis: Etiologies such as infections, reactive airway disease, pneumonia, pneumothorax , COPD, CHF, cardiac ischemia, pulmonary embolism, musculoskeletal, gastrointestinal, as well as others were entertained. Nursing notes reviewed. Additional history is obtained from the patient's family members. The patient is an 81-year-old male who presented to the emergency department for shortness of breath. The patient has a history of right-sided heart problems. He normally wears oxygen but is sometimes noncompliant with his oxygen therapy. The patient was found to have significant hypoxia. He was placed on supplemental oxygen with some improvement of his symptoms. Initially I thought the patient's presentation was consistent with congestive heart failure. His chest x-ray did not show definite signs of pulmonary edema. He was found to have no changes on his EKG but had an elevated BNP and an elevated troponin. The patient was treated with some fluid as well as Zofran in the emergency department. I discussed patient's laboratory and radiographic studies with him. I also discussed his case with the on-call [facility] hospitalist group. They have agreed to evaluate patient in the emergency department for further management and disposition. I also discussed this case with the academic advising director group. Because the patient's ongoing hypotension. At this time does not appear to be from an infectious source but he had an elevated white blood cell count. Given his recent diagnosis of cellulitis and his noncompliance with his antibiotics he may have some underlying infection. Medication Reconcilliation Current Medication List: was personally reviewed by me Blood Pressure Screening Patient's blood pressure: Low blood pressure Blood pressure disposition: Did not require urgent referral Consults Time Called: 1445 Consulting Physician: Dian Rm PA-C - [facility] Returned Call: 1450 I discussed the patient's case with Dian Rm PA-C. The patient will be evaluated for further management. Additional Consults: Time Called: 1455 Consulted Physician: Tej Langley PA-C - Critical Care Returned Call: 1450 Additional Comments: I discussed the patient's case with Tej Langley PA-C. The patient will be evaluated in the ICU. Impression Primary Impression: Hypoxia Additional Impressions: SOB (shortness of breath) Hypotension Cellulitis Noncompliance with medications Critical Care I have personally spent greater than 40 minutes of critical care time in the direct management of this patient. This includes bedside care, interpretation of diagnostic studies, and testing, discussion with consultants, patient, and family members, and other required patient management activities. This 40 minutes is in excess of all separately billable procedures. Scribe Attestation The scribe's documentation has been prepared under my direction and personally reviewed by me in its entirety. I confirm that the note above accurately reflects all work, treatment, procedures, and medical decision making performed by me. Departure Information Dispostion Being Evaluated By Hospitalist Boris Kwok M.D. (PCP) Patient Instructions My [facility] Problem Qualifiers Additional Impressions: Hypotension Hypotension type: unspecified hypotension type Qualified Codes: I95.9 - Hypotension, unspecified Cellulitis Site of cellulitis: extremity Site of cellulitis of extremity: lower extremity Laterality: unspecified laterality Qualified Codes: L03.119 - Cellulitis of unspecified part of limb
[2017-09-14] MEDS ORDERED: ALBUT/IPRATROP 3MG/0.5MG NEB 3 ML VIAL INH PRN (16:00)
[2017-09-14] MEDS ORDERED: ACETAMINOPHEN 325 MG TAB PO PRN (16:00)
[2017-09-14] MEDS ORDERED: ICU PROTOCOL FOR HYPERGLYCEMIA PRN (16:00)
--- NOTE | 2017-09-14 16:01 | History and Physical ---
History & Physical Date & Time of Service: Sep 14, 2017 at 16:01 Chief Complaint: SOB Primary Care Physician: Boris Perez M.D. History of Present Illness Source: patient, family Patient is 81 yr male with PMH of Diastolic CHF, Pulmonary Hypertension, CKD III , H/O MVR, CAD S/P CABG, chronic oxygen dependency presents with history of worsening B/L leg swelling, dysuria, weight gain and chronic Shortness of breath. Patient states he is on 2L of oxygen at home but has not been using it as advised. He occasionally uses it at bedtime and states usually not wearing oxygen doesn't cause his to be SOB. Patient was found to be hypoxic in 70s while in ED. He admits to being non complaint with medications and he noticed worsening of leg swelling, weight gain and also noticed to have swelling of his penis last night which has been causing dysuria. He also has been to wound clinic for RLE wound and was prescribed PO antibiotics which patient hasn't taken. He has been not taking his Lasix at least since 1 week and states it would be difficult for him to take his medications regularly if he is not at home secondary to increased Urinary frequency. Denies any history of chest pain , PND, dizziness, diaphoresis, cough, fever, chills, Headache, weakness, numbness, change in vision, vertigo, nausea, vomiting, abdominal pain, hematuria. Past Medical/Surgical History Medical Problems: (1) Acute respiratory failure (2) Alcohol intoxication (3) Aortic regurgitation (4) CAD (coronary artery disease) (5) CHF (congestive heart failure) (6) Chronic right-sided CHF (congestive heart failure) (7) CKD (chronic kidney disease), stage IV (8) Cor pulmonale (9) Dyslipidemia (10) Hypertension (11) Near syncope (12) Pulmonary HTN (13) Pulmonary hypertension (14) SOB (shortness of breath) Surgical Problems: (1) History of nasal surgery (2) Hx of tonsillectomy (3) S/P CABG x 4 (4) Status post mitral valve replacement Family History No pertinent family history Mother:Heart disease Father:Diabetes Social History Smoking Status: Never Smoker Alcohol Use: socially Drug Use: none Marital Status: Housing status: lives with family Occupational Status: retired Allergies Coded Allergies: No Known Allergies (Unverified , 4/3/18) Home Medications Scheduled Aspirin (Aspirin 81), 162 MG PO DAILY Atorvastatin (Lipitor), 40 MG PO DAILY Furosemide (Furosemide), 80 MG PO BID Magnesium Oxide (Magnesium-Oxide), 400 MG PO QAM Metolazone (Metolazone), 5 MG PO DAILY Metoprolol Succinate (Metoprolol Succinate ER), 25 MG PO BID Potassium Chloride (Potassium Chloride), 20 MEQ PO DAILY Review of Systems See HPI for pertinent positives & negatives. A total of 10 systems reviewed and were otherwise negative. Physical Exam Vital Signs Date Time Temp Pulse Resp B/P (MAP) Pulse Ox O2 Delivery O2 Flow Rate FiO2 09/14/17 15:31 89/64 09/14/17 15:30 95 22 90 Oxymask 8.0 09/14/17 15:01 82/56 09/14/17 15:00 92 19 93 Oxymask 8.0 09/14/17 14:34 93 16 83/58 92 Oxymask 8.0 09/14/17 13:59 94 16 94/65 87 Oxymask 8.0 09/14/17 13:00 97 18 81/57 85 Oxymask 8.0 09/14/17 12:31 84 Oxymask 8.0 09/14/17 12:24 102 09/14/17 12:21 75 Room Air 09/14/17 12:21 37.0 103 18 83/57 75 Room Air 09/14/17 12:21 75 Room Air General Appearance: WD/WN, no apparent distress, + pertinent finding (chronic ill appearing) Head: normocephalic, atraumatic Eyes: normal inspection, PERRL, EOMI, sclerae normal ENT: normal ENT inspection, hearing grossly normal Neck: supple, trachea midline Respiratory/Chest: chest non-tender, lungs clear, no accessory muscle use, + decreased breath sounds Cardiovascular: regular rate, rhythm, + tachycardia, + systolic murmur, + pertinent finding (2+ B/L edema, Post CABG surgical scar on chest ) Abdomen/GI: normal bowel sounds, non tender, soft Genitourinary - Male: + pertinent finding (Penis swollen) Back: normal inspection Extremities/Musculoskelatal: normal inspection, + pedal edema, + pertinent finding (Chronic venous stasis B/L ) Neurologic/Psych: graphic designer II-XII nml as tested, no motor/sensory deficits, alert, normal mood/affect, oriented x 3 Skin: normal color, warm/dry Diagnostics Laboratory Results Results Past 24 Hours Test 09/14/17 12:41 09/14/17 12:46 09/14/17 12:55 09/14/17 13:30 Range/Units White Blood Count 15.49 4.8-10.8 K/uL Red Blood Count 4.82 4.7-6.1 M/uL Hemoglobin 16.4 14.0-18.0 g/dL Hematocrit 47.8 42-52 % Mean Corpuscular Volume 99.2 80-100 fL Mean Corpuscular Hemoglobin 34.0 25-34 pg Mean Corpuscular Hemoglobin Concent 34.3 32-36 g/dl Platelet Count 139 130-400 K/uL Mean Platelet Volume 10.3 7.4-10.4 fL Neutrophils (%) (Auto) 88.4 % Lymphocytes (%) (Auto) 4.8 % Monocytes (%) (Auto) 6.3 % Eosinophils (%) (Auto) 0.1 % Basophils (%) (Auto) 0.1 % Neutrophils # (Auto) 13.69 1.4-6.5 K/uL Lymphocytes # (Auto) 0.75 1.2-3.4 K/uL Monocytes # (Auto) 0.98 0.11-0.59 K/uL Eosinophils # (Auto) 0.01 0-0.5 K/uL Basophils # (Auto) 0.02 0-0.2 K/uL RDW Standard Deviation 61.0 36.4-46.3 fL RDW Coefficient of Variation 16.8 11.5-14.5 % Immature Granulocyte % (Auto) 0.3 % Immature Granulocyte # (Auto) 0.04 0.00-0.02 K/uL Erythrocyte Sedimentation Rate 26 0-14 mm/hr Sodium Level 135 136-145 mmol/L Potassium Level 4.1 3.5-5.1 mmol/L Chloride Level 105 98-107 mmol/L Carbon Dioxide Level 21 21-32 mmol/L Anion Gap 9.0 3-11 mmol/L Blood Urea Nitrogen 37 7-18 mg/dl Creatinine 1.64 0.60-1.40 mg/dl Est Creatinine Clear Calc Drug Dose 40.7 ml/min Estimated GFR () 45.1 Estimated GFR (Non- 38.9 BUN/Creatinine Ratio 22.5 10-20 Random Glucose 88 70-99 mg/dl Calcium Level 8.3 8.5-10.1 mg/dl Phosphorus Level 3.3 2.5-4.9 mg/dl Magnesium Level 2.2 1.8-2.4 mg/dl Total Bilirubin 3.6 0.2-1 mg/dl Aspartate Amino Transf (AST/SGOT) 35 15-37 U/L Alanine Aminotransferase (ALT/SGPT) 26 12-78 U/L Alkaline Phosphatase 283 45-117 U/L Total Creatine Kinase 131 39-308 U/L Creatine Kinase MB 8.1 0.5-3.6 ng/ml Creatine Kinase MB Ratio 0-3.0 Troponin I 0.949 0-0.045 ng/ml C-Reactive Protein 4.97 0-0.29 mg/dl Pro-B-Type Natriuretic Peptide 9792 0-1800 pg/ml Total Protein 6.4 6.4-8.2 gm/dl Albumin 2.2 3.4-5.0 gm/dl Globulin 4.2 2.5-4.0 gm/dl Albumin/Globulin Ratio 0.5 0.9-2 Lipase 67 73-393 U/L Bedside Lactic Acid Venous 2.79 0.90-1.70 mmol/L Venous Blood pH 7.45 7.36-7.41 Venous Blood Partial Pressure CO2 36 38.0-50.0 mmHg Venous Blood Partial Pressure O2 26 mmHg Venous Blood HCO3 24 mmol/L Venous Blood Oxygen Saturation < 60.0 % Venous Blood Base Excess 0.6 mEq/L Prothrombin Time 15.9 9.0-12.0 SECONDS Prothromb Time International Ratio 1.5 0.9-1.1 Activated Partial Thromboplast Time 33.4 21.0-31.0 SECONDS Partial Thromboplastin Ratio 1.3 Microbiology Results 09/14/17 Blood Culture, Received Pending 09/14/17 Blood Culture, Received Pending Diagnostic Radiology CTA: 1. Suboptimal lower lobe pulmonary arterial opacification. No central emboli are visualized. If there is a strong suspicion over pulmonary embolism, correlation with serial leg ultrasonography would be recommended. 2. Elevation right hemidiaphragm. Small right pleural effusion. Right basilar airspace opacities likely representing compressive atelectasis 3. Trace ascites CXR: . Mild cardiomegaly. Otherwise no acute cardiopulmonary disease. EKG EKG; Sinus tachycardia Right bundle branch block Left posterior fascicular block Impression Assessment and Plan Acute on chronic Hypoxic respiratory failure:Multifactorial Acute on chronic diastolic CHF exacerbation: H/O pulmonary Hypertension H/O mitral Valve replacement H/O non compliance Possible Left to Right shunt ? PE: CTA showed Suboptimal lower lobe pulmonary arterial opacification. No central emboli are visualized CTA suggestive of Right diaphragm paralysis Admit in ICU Continue Diuresis per ICU team Check ECHO Daily weight, I/Os, low sodium diet Monitor electrolytes Start on BiPAP Cardiology consulted Lower Extremity Cellulitis: Started on IV Vanco, Cefepime Blood cultures Wound Care No IV fluids given volume overload status Elevated Troponin: Likely demand Ischemia Obtain ECHO Trend cardiac enzymes Cardiology consulted Patient denies angina symptoms CKD III: Cr at baseline Monitor renal function CAD s/p CABG: continue Aspirin, Statin, Metoprolol HLP: continue statins DVT Px: Heparin SQ Code Status: DNI only as per my discussion with patient Resuscitation Status VTE Prophylaxis Will order VTE Prophylaxis: Yes
--- NOTE | 2017-09-14 18:25 | Critical Care Consultation ---
Critical Care Consultation Date of Consultation: Sep 14, 2017. Attending Physician: Slick Shea M.D. Reason for Consultation: Chronic hypoxic respiratory failure. History of Present Illness Dear Dr. Crawley: Thank you for your kind referral of Mr. Leonard to critical care service. This is 81-year-old gentleman with a history of coronary artery disease, MVR in 2007 , history of cor pulmonale, chronic kidney disease, the patient was in his usual status of health up until recently when he started becoming noncompliant with his diuretics, the patient felt that he would not be able to make it to the bathroom if he had to go out inside the house. For that reason he stopped taking his Lasix on the days that he is outdoors. The patient however recently also evaluated by the wound clinic for his right medial leg ulcer that has been treated and currently surgically wrapped. The patient does have chronic venous stasis bilaterally in the lower extremities. His level of activity approximately around the house and he does walk on a straight line for over a block. The patient has been very active according to him. He has not been on oxygen and recently he was prescribed 2 L of oxygen at home. The patient has not started on the oxygen yet. The patient has been taking his medications and has been followed by Dr. Rivas who is his business development director as an outpatient. In the ED, on his presentation, the patient noted that he had increased swelling in his lower extremities. Is feeling weak. Denies any shortness of breath, no chest pain, no hemoptysis, he has not been taking any anticoagulants , the patient denies any near syncopal episode, he does have orthopnea and he sleeps on 2 pillows. The leg edema has been chronic. No change in bowel movements or urine habits. No abdominal pain. His overall fatigue did not interfere with his oral intake. Rest of his review of system was unremarkable. In the ED, the patient received a dose of diuretics, started on oxygen, and he was found to have profound hypoxia with O2 sat dropping down to 75% range. The patient was started on oximask and transferred to the ICU for further monitoring. The patient is well mentating, he did have episode of cyanosis as he was laid down by the nursing staff when he was repositioned. The patient did not have any symptoms surprisingly. The patient is non-smoker lifetime does not have secondhand exposure to smoking according to him except from his father, he worked in [employer], and did not have any industrial exposure according to him. He lives with his . Family History No pertinent family history Social History Smoking Status: Never Smoker Drug Use: none Marital Status: Housing Status: lives with family Occupation Status: retired Allergies Coded Allergies: No Known Allergies (Unverified , 09/14/17) Home Medications Scheduled Aspirin (Aspirin 81), 162 MG PO DAILY Atorvastatin (Lipitor), 40 MG PO DAILY Furosemide (Furosemide), 80 MG PO BID Magnesium Oxide (Magnesium-Oxide), 400 MG PO QAM Metolazone (Metolazone), 5 MG PO DAILY Metoprolol Succinate (Metoprolol Succinate ER), 25 MG PO BID Potassium Chloride (Potassium Chloride), 20 MEQ PO DAILY Current Inpatient Medications Current Inpatient Medications Medications (Trade) Dose Ordered Sig/Bakair Route Start Time Stop Time Status Last Admin Dose Admin Ioversol (Optiray 320) 125 ml UD PRN IV 09/14/17 13:30 09/18/17 13:29 Heparin Sodium (Porcine) (Heparin Sq 5000 Unit/0.5ml) 5,000 unit Q8 SQ 09/14/17 22:00 10/14/17 21:59 Acetaminophen (Tylenol Tab) 650 mg Q4H PRN PO 09/14/17 16:00 10/14/17 15:59 Albuterol/ Ipratropium (Duoneb) 3 ml QID PRN INH 09/14/17 16:00 10/14/17 15:59 Miscellaneous Information (Icu Protocol For Hyperglycemia) 1 ea PRN PRN N/A 09/14/17 16:00 09/16/17 15:59 Aspirin (Ecotrin Tab) 162 mg DAILY PO 09/15/17 09:00 10/15/17 08:59 Atorvastatin Calcium (Lipitor Tab) 40 mg DAILY PO 09/15/17 09:00 10/15/17 08:59 Magnesium Oxide (Mag-Ox Tab) 400 mg QAM PO 09/15/17 09:00 10/15/17 08:59 Metoprolol Succinate (Toprol Xl Tab) 25 mg DAILY PO 09/15/17 09:00 10/15/17 08:59 Review of Systems Constitutional: No fever, No chills, No sweats, No weight loss, No weakness, No fatigue, No problem reported ENT: No hearing loss, No unusual epistaxis, No nasal symptoms, No sore throat, No tinnitus, No dental problems, No trouble swallowing, No problem reported Respiratory: + dyspnea on exertion, + problem reported (Orthopnea) Cardiovascular: + orthopnea, + edema, No chest pain, No PND, No claudication, No palpitations, No problem reported Abdomen: No pain, No nausea, No vomiting, No diarrhea, No constipation, No GI bleeding, No problem reported Musculoskeletal: No joint pain, No muscle pain, No swelling, No calf pain, No problem reported Neurologic: No memory loss, No paralysis, No weakness, No numbness/tingling, No vertigo, No balance problems, No problem reported Psychiatric: No depression symptoms, No anhedonism, No anxiety, No insomnia, No substance abuse, No problem reported Allergic / Immunologic: No environmental allergies, No seasonal allergies, No pet sensitivities, No food allergies, No hives, No frequent infections, No poor healing, No prolonged convalescence, No problem reported Physical Exam Date Time Temp Pulse Resp B/P (MAP) Pulse Ox O2 Delivery O2 Flow Rate FiO2 09/14/17 17:27 95 20 107/63 91 09/14/17 17:01 107/63 09/14/17 17:00 95 20 87 Oxymask 8.0 09/14/17 16:31 88/59 09/14/17 16:30 91 14 91 Oxymask 8.0 09/14/17 16:01 107/54 09/14/17 16:00 93 18 91 Oxymask 8.0 09/14/17 15:31 89/64 09/14/17 15:30 95 22 90 Oxymask 8.0 09/14/17 15:01 82/56 09/14/17 15:00 92 19 93 Oxymask 8.0 09/14/17 14:34 93 16 83/58 92 Oxymask 8.0 09/14/17 13:59 94 16 94/65 87 Oxymask 8.0 09/14/17 13:00 97 18 81/57 85 Oxymask 8.0 09/14/17 12:31 84 Oxymask 8.0 09/14/17 12:24 102 09/14/17 12:21 75 Room Air 09/14/17 12:21 37.0 103 18 83/57 75 Room Air 09/14/17 12:21 75 Room Air General Appearance: no apparent distress Eyes: PERRLA, EOMI ENT: normal mouth exam, other (Cyanosis) Respiratory: breath sounds normal, clear to auscultation Cardiovasular: normal S1S2, no M/G/R, no murmur, other (Systolic ejection murmur 3/6) Abdomen: non tender, no rebound, no masses Lower Extremities: edema, other (Venous stasis bilaterally) Neuro: alert, oriented x 3, normal motor exam Psychiatric: normal affect Laboratory Results Last 24 Hours Test 09/14/17 12:41 09/14/17 12:46 09/14/17 12:55 09/14/17 13:30 White Blood Count 15.49 K/uL Red Blood Count 4.82 M/uL Hemoglobin 16.4 g/dL Hematocrit 47.8 % Mean Corpuscular Volume 99.2 fL Mean Corpuscular Hemoglobin 34.0 pg Mean Corpuscular Hemoglobin Concent 34.3 g/dl Platelet Count 139 K/uL Mean Platelet Volume 10.3 fL Neutrophils (%) (Auto) 88.4 % Lymphocytes (%) (Auto) 4.8 % Monocytes (%) (Auto) 6.3 % Eosinophils (%) (Auto) 0.1 % Basophils (%) (Auto) 0.1 % Neutrophils # (Auto) 13.69 K/uL Lymphocytes # (Auto) 0.75 K/uL Monocytes # (Auto) 0.98 K/uL Eosinophils # (Auto) 0.01 K/uL Basophils # (Auto) 0.02 K/uL RDW Standard Deviation 61.0 fL RDW Coefficient of Variation 16.8 % Immature Granulocyte % (Auto) 0.3 % Immature Granulocyte # (Auto) 0.04 K/uL Erythrocyte Sedimentation Rate 26 mm/hr Sodium Level 135 mmol/L Potassium Level mmol/L 4.1 mmol/L Chloride Level 105 mmol/L Carbon Dioxide Level 21 mmol/L Anion Gap 9.0 mmol/L Blood Urea Nitrogen 37 mg/dl Creatinine 1.64 mg/dl Est Creatinine Clear Calc Drug Dose 40.7 ml/min Estimated GFR () 45.1 Estimated GFR (Non- 38.9 BUN/Creatinine Ratio 22.5 Random Glucose 88 mg/dl Calcium Level 8.3 mg/dl Phosphorus Level 3.3 mg/dl Magnesium Level mg/dl 2.2 mg/dl Total Bilirubin 3.6 mg/dl Aspartate Amino Transf (AST/SGOT) U/L 35 U/L Alanine Aminotransferase (ALT/SGPT) 26 U/L Alkaline Phosphatase 283 U/L Total Creatine Kinase U/L 131 U/L Creatine Kinase MB 8.1 ng/ml Creatine Kinase MB Ratio Troponin I 0.949 ng/ml C-Reactive Protein 4.97 mg/dl Pro-B-Type Natriuretic Peptide 9792 pg/ml Total Protein 6.4 gm/dl Albumin 2.2 gm/dl Globulin 4.2 gm/dl Albumin/Globulin Ratio 0.5 Lipase 67 U/L Bedside Lactic Acid Venous 2.79 mmol/L Venous Blood pH 7.45 Venous Blood Partial Pressure CO2 36 mmHg Venous Blood Partial Pressure O2 26 mmHg Venous Blood HCO3 24 mmol/L Venous Blood Oxygen Saturation < 60.0 % Venous Blood Base Excess 0.6 mEq/L Prothrombin Time 15.9 SECONDS Prothromb Time International Ratio 1.5 Activated Partial Thromboplast Time 33.4 SECONDS Partial Thromboplastin Ratio 1.3 Test 09/14/17 16:07 Diagnostic Results CAT scan of the chest, showed elevated hemidiaphragm on the right, chronically noted. COPD changes also are noted. Cardiomegaly with dilated right ventricle. ? Filling defect in the left main pulmonary artery, unclear to me if it is artifact as well. Assessment & Plan 1. Right ventricular failure. Etiology is concerning for right to left shunt. 2. Acute on chronic hypoxic respiratory failure. 3. Possible superimposed venous thromboembolic event which I could not prove. 4. History of coronary artery disease, MVR with bovine valve, 5. Right hemidiaphragm paralysis. 6. Chronic kidney disease. Plan: 1. Obviously the patient is in a shunt not in VQ mismatch. The patient had bedside ultrasound with echocardiogram done by me which showed significantly dilated right ventricle with severe TR. The patient is highly likely to have interoseptal shunt. As he is totally asymptomatic and not responding to high flow oxygen. 2. In that regard, I will start the patient on Vapotherm. Keep his O2 sat above than 80% only. 2. The patient would benefit from NPPV nocturnally. 3. Obtain formal echo with evaluation with bubble study. 4. Cardiology consult.? PA catheter. 5. Agree with d-dimer. 6. CPAP tonight. 7. No specific treatment for right hemidiaphragm paralysis. The patient is not a candidate for diaphragm Plication. 8. Continue with diuresis. 9. Treatment for possible cellulitis however the patient does not want us to remove the surgical dressing at this point. Agree with antibiotics at this point. Case discussed in details with the patient, and the staff, Critical care time spent with the patient was 45 minutes.
[2017-09-14] MEDS ORDERED: VANCOMYCIN CONSULT ACTIVE PRN (18:30)
--- NOTE | 2017-09-14 19:35 | Critical Care Progress Note ---
Critical Care Progress Note Date of Service Sep 14, 2017. Critical Care Progress Note I did receive a call from the patient's primary service in regards to continuation versus discontinuation of his Lasix dosing. I did speak with my attending. At this point, it was felt that the patient required his Lasix. I independently evaluated the patient who is awake, alert, and oriented. His oxygen saturations remain in the mid 80s on high flow, however he is completely asymptomatic. I did review the patient's labs as well as CT which had question of possible RIGHT lower lobe PE, however this certainly was not definitive. At this point, I did elect to perform ultrasounds the bilateral lower extremities. Patient refused a dose of Lasix tonight. He was agreeable to starting his Lasix again tomorrow as well as starting IV tonight if his symptoms required. Additionally, I did discuss with the patient utility of catheter versus [place] catheter which she adamantly declined at this point. Radiological imaging and reports were reviewed by myself. Radiologist's Interpretation as follows: HISTORY: Lower extremity edema. eval for DVT COMPARISON STUDY: None. FINDINGS: There is normal compressibility, flow, and augmentation within the bilateral lower extremity deep venous systems. Of note, the calf veins were not well visualized due to the subcutaneous edema. IMPRESSION: No DVT within the right or left lower extremity. Despite the patient's normal DVT studies, he had substantial rise in his cardiac enzymes. This, coupled with concern for possible RIGHT lower lobe PE with continued severe RIGHT ventricular dysfunction, I did elect to change the patient's heparin from every 8 hours to heparin drip. Will continue to trend cardiac enzymes. Will discontinue in the AM if needed for PA catheter placement. I have personally spent 35 minutes of critical care time in the direct management of this patient. This is a life/limb threatening event. This includes time spent evaluating patient, direct bedside care, chart review, placing orders, interpretation of diagnostic studies, discussion with consultants, patient, and family members, as well as other required patient management activities. This time is exclusive of all separately billable procedures, and teaching time and separate from and in addition to any other critical care service time.
[2017-09-14] MEDS ORDERED: VANCOMYCIN IV 2,250 MG in SODIUM CHLORIDE 0.9% 500ML 500 ML IV SCH (19:45)
[2017-09-14] MEDS ORDERED: CEFEPIME CONSULT ACTIVE PRN (21:00)
[2017-09-14] MEDS ORDERED: VANCOMYCIN IV 1,000 MG in SODIUM CHLORIDE 0.9% 250ML 250 ML IV SCH (21:00)
--- NOTE | 2017-09-14 21:10 | Pharmacy Progress Note ---
Pharmacy Antibiotic Consult Date of Service: Sep 14, 2017. Pharmacy Dosing Scope Pharmacy is consulted to initiate VANCOMYCIN / CEFEPIME IV dosing therapy, order appropriate labs and adjust drug dose/frequency. Subjective The patient is a 81 year old male admitted on Sep 14, 2017 at 16:00. Objective Height (Feet): 5 Height (Inches): 9.00 Weight (Kilograms): 86.600 Lab Results (24hrs): Test 09/14/17 12:41 09/14/17 12:46 09/14/17 12:55 09/14/17 13:30 White Blood Count 15.49 K/uL (4.8-10.8) Red Blood Count 4.82 M/uL (4.7-6.1) Hemoglobin 16.4 g/dL (14.0-18.0) Hematocrit 47.8 % (42-52) Mean Corpuscular Volume 99.2 fL (80-100) Mean Corpuscular Hemoglobin 34.0 pg (25-34) Mean Corpuscular Hemoglobin Concent 34.3 g/dl (32-36) Platelet Count 139 K/uL (130-400) Mean Platelet Volume 10.3 fL (7.4-10.4) Neutrophils (%) (Auto) 88.4 % Lymphocytes (%) (Auto) 4.8 % Monocytes (%) (Auto) 6.3 % Eosinophils (%) (Auto) 0.1 % Basophils (%) (Auto) 0.1 % Neutrophils # (Auto) 13.69 K/uL (1.4-6.5) Lymphocytes # (Auto) 0.75 K/uL (1.2-3.4) Monocytes # (Auto) 0.98 K/uL (0.11-0.59) Eosinophils # (Auto) 0.01 K/uL (0-0.5) Basophils # (Auto) 0.02 K/uL (0-0.2) RDW Standard Deviation 61.0 fL (36.4-46.3) RDW Coefficient of Variation 16.8 % (11.5-14.5) Immature Granulocyte % (Auto) 0.3 % Immature Granulocyte # (Auto) 0.04 K/uL (0.00-0.02) Erythrocyte Sedimentation Rate 26 mm/hr (0-14) Sodium Level 135 mmol/L (136-145) Potassium Level mmol/L (3.5-5.1) 4.1 mmol/L (3.5-5.1) Chloride Level 105 mmol/L (98-107) Carbon Dioxide Level 21 mmol/L (21-32) Anion Gap 9.0 mmol/L (3-11) Blood Urea Nitrogen 37 mg/dl (7-18) Creatinine 1.64 mg/dl (0.60-1.40) Est Creatinine Clear Calc Drug Dose 40.7 ml/min Estimated GFR () 45.1 Estimated GFR (Non- 38.9 BUN/Creatinine Ratio 22.5 (10-20) Random Glucose 88 mg/dl (70-99) Calcium Level 8.3 mg/dl (8.5-10.1) Phosphorus Level 3.3 mg/dl (2.5-4.9) Magnesium Level mg/dl (1.8-2.4) 2.2 mg/dl (1.8-2.4) Total Bilirubin 3.6 mg/dl (0.2-1) Aspartate Amino Transf (AST/SGOT) U/L (15-37) 35 U/L (15-37) Alanine Aminotransferase (ALT/SGPT) 26 U/L (12-78) Alkaline Phosphatase 283 U/L (45-117) Total Creatine Kinase U/L (39-308) 131 U/L (39-308) Creatine Kinase MB 8.1 ng/ml (0.5-3.6) Creatine Kinase MB Ratio (0-3.0) Troponin I 0.949 ng/ml (0-0.045) C-Reactive Protein 4.97 mg/dl (0-0.29) Pro-B-Type Natriuretic Peptide 9792 pg/ml (0-1800) Total Protein 6.4 gm/dl (6.4-8.2) Albumin 2.2 gm/dl (3.4-5.0) Globulin 4.2 gm/dl (2.5-4.0) Albumin/Globulin Ratio 0.5 (0.9-2) Lipase 67 U/L (73-393) Bedside Lactic Acid Venous 2.79 mmol/L (0.90-1.70) Venous Blood pH 7.45 (7.36-7.41) Venous Blood Partial Pressure CO2 36 mmHg (38.0-50.0) Venous Blood Partial Pressure O2 26 mmHg Venous Blood HCO3 24 mmol/L Venous Blood Oxygen Saturation < 60.0 % Venous Blood Base Excess 0.6 mEq/L Prothrombin Time 15.9 SECONDS (9.0-12.0) Prothromb Time International Ratio 1.5 (0.9-1.1) Activated Partial Thromboplast Time 33.4 SECONDS (21.0-31.0) Partial Thromboplastin Ratio 1.3 Test 09/14/17 18:22 09/14/17 19:01 Lactic Acid Level 2.3 mmol/L (0.4-2.0) D-Dimer 990 ug/L FEU (0-500) Troponin I 5.640 ng/ml (0-0.045) Micro Results: * 09/14/17 -- Blood x 2 -- pending * 09/14/17 -- Nasal swab -- pending Assessment & Plan 81yo male ordered VANCOMYCIN / CEFEPIME for RLE cellulitis. SCr is elevated, however appears to be close to baseline for this patient. VANCOMYCIN: * Loading dose: VANCOMYCIN 2250mg (~24mg/kg) IV X 1 dose then VANCOMYCIN 1500mg (~16mg/kg) IV every 24 hours. * Estimated Pk parameters: Ke ~0.038 t1/2 ~18 hours * Goal trough level estimate: between 15 - 20 mcg/mL. * Trough level has been ordered for: @ 1999. Pharmacy will continue to follow and will adjust dose/frequency as necessary. Thank you
--- NOTE | 2017-09-14 21:45 | DIAGNOSTIC IMAGING REPORT ---
BILATERAL LOWER EXTREMITY VENOUS DOPPLER HISTORY: Lower extremity edema. eval for DVT COMPARISON STUDY: None. FINDINGS: There is normal compressibility, flow, and augmentation within the bilateral lower extremity deep venous systems. Of note, the calf veins were not well visualized due to the subcutaneous edema. IMPRESSION: No DVT within the right or left lower extremity. Electronically signed by: Alphonso Sawant M.D. 09/14/2017 9:44 PM Dictated Date/Time: 09/14/2017 9:43 PM
[2017-09-14] MEDS ORDERED: HEPARIN SOD 5000 UNIT/0.5 ML CARP SQ SCH (22:00)
[2017-09-14] MEDS ORDERED: CEFEPIME IV 1,000 MG in DEXTROSE 5% 100ML 100 ML IV SCH (22:00)
[2017-09-14] MEDS: CEFEPIME IV 2,000 MG in SYRINGE 7.5 ML IV SCH (22:31)
[2017-09-15] VITALS (10 sets, daily range): BP systolic 87–98; BP diastolic 52–64; PULSE 89–114; TEMP 36.7–36.8; O2SAT 83–97; Ht 175.3 cm; Wt 86.7 kg
[2017-09-15] MEDS ORDERED: HEPARIN IV BOLUS 4,000 UNIT in SYRINGE 0 ML IV ONE (01:45)
[2017-09-15 01:53] LABS: BASO % 0.1 %; BASO ABS # 0.02 K/uL (0-0.2); EOS % 0.3 %; EOS ABS # 0.04 K/uL (0-0.5); HEMATOCRIT 49.1 % (42-52); HEMOGLOBIN 16.5 g/dL (14.0-18.0); IG# 0.03 K/uL (0.00-0.02); LYMPH % 7.2 %; LYMPH ABS # 0.97 K/uL (1.2-3.4); MEAN CORPUSCULAR HEMOGLOBIN 33.6 pg (25-34); MONO % 6.2 %; MONO ABS # 0.83 K/uL (0.11-0.59); NEUT ABS # 11.49 K/uL (1.4-6.5); PLATELET COUNT 138 K/uL (130-400); RED CELL DISTRIBUTION WIDTH CV 16.8 % (11.5-14.5); RED CELL DISTRIBUTION WIDTH SD 61.1 fL (36.4-46.3); WHITE BLOOD COUNT 13.38 K/uL (4.8-10.8)
[2017-09-15 02:01] LABS: MEAN CORPUSCULAR HGB CONC 33.6 g/dl (32-36)
[2017-09-15 02:02] LABS: INR 1.5 (0.9-1.1); PTT PATIENT 34.5 SECONDS (21.0-31.0)
[2017-09-15] MEDS: HEPARIN 25,000 UNIT/500ML D5W 500 ML IV SCH (02:09)
[2017-09-15 05:24] LABS: BASO % 0.2 %; BASO ABS # 0.02 K/uL (0-0.2); EOS % 0.9 %; EOS ABS # 0.11 K/uL (0-0.5); HEMATOCRIT 45.3 % (42-52); HEMOGLOBIN 15.6 g/dL (14.0-18.0); IG# 0.05 K/uL (0.00-0.02); LYMPH % 7.6 %; LYMPH ABS # 0.97 K/uL (1.2-3.4); MEAN CELL VOLUME 99.3 fL (80-100); MEAN CORPUSCULAR HEMOGLOBIN 34.2 pg (25-34); MEAN CORPUSCULAR HGB CONC 34.4 g/dl (32-36); MEAN PLATELET VOLUME 9.9 fL (7.4-10.4); MONO % 7.3 %; MONO ABS # 0.93 K/uL (0.11-0.59); NEUT % 83.6 %; NEUT ABS # 10.67 K/uL (1.4-6.5); PLATELET COUNT 136 K/uL (130-400); RED CELL DISTRIBUTION WIDTH CV 16.9 % (11.5-14.5); RED CELL DISTRIBUTION WIDTH SD 60.6 fL (36.4-46.3); WHITE BLOOD COUNT 12.75 K/uL (4.8-10.8)
[2017-09-15 05:41] LABS: ALBUMIN 1.9 gm/dl (3.4-5.0); CALCIUM 8.1 mg/dl (8.5-10.1); CREATININE 1.64 mg/dl (0.60-1.40)
[2017-09-15 05:50] LABS: TOTAL PROTEIN 5.9 gm/dl (6.4-8.2)
--- NOTE | 2017-09-15 06:51 | Clinical Documentation Query ---
LETITIA Hutton : CLINICAL DOCUMENTATION QUERIES QUERY 1 OF 2 Patient is an 81 year old male admitted for evaluation and treatment of acute on chronic hypoxic respiratory failure, acute on chronic diastolic CHF, cellulitis, and elevated troponin. Serum troponin on admission of 0.949 ng/ml deemed "likely demand ischemia". Subsequent troponin's to 6.98 ng/dl. EKG read to include: "Sinus tachycardia Right bundle branch block Left posterior fascicular block Bifascicular block T wave abnormality, consider inferior ischemia" Patient being monitored on heparin infusion in ICU. Cardiology consultation and echocardiogram pending. As this serum troponin is almost 140X the upper limit of normal, consider documentation as suggested below in order to capture the appropriate severity of illness and associated risk of mortality. Thank you. In your clinical opinion is this patient being managed for: (x ) (Likely) Type 2 [place] ( ) Not Agree ( ) Other explanation of clinical findings (Please Explain) ( ) Unable to determine (Please Define) ( ) Need to Discuss The medical record reflects the following clinical findings, treatment, and risk factors. Clinical Indicators: As above Treatment: Patient being monitored on heparin infusion in ICU. Cardiology consultation and echocardiogram pending. Risk Factors: Age, acute on chronic hypoxic respiratory failure, acute on chronic diastolic CHF, CAD, cor pulmonale QUERY 2 OF 2 On admission, WBC 15.49, HR 103, BP 83/57 mmHg, SpO2 75%, POC lactic acid 2.79 mmol/L and repeat of 2.3 mmol/L. He was bolused NSS in the ED. He is being treated with Vancomycin and Cefepime. Blood and wound cultures are pending. As appropriate, consider documentation as suggested below. Thank you. In your clinical opinion is this patient being managed for: (x ) Sepsis due to lower extremity cellulitis, POA ( ) Not Agree ( ) Other explanation of clinical findings (Please Explain) ( ) Unable to determine (Please Define) ( ) Need to Discuss The medical record reflects the following clinical findings, treatment, and risk factors. Clinical Indicators: As above Treatment: He is being treated with Vancomycin and Cefepime. Blood and wound cultures are pending Risk Factors: Known cellulitis. Not taking antibiotics as outpatient as directed. Please clarify and document your clinical opinion in the progress notes and discharge summary. Terms such as "probable", "suspected", "likely", "questionable", "possible", or "still to be ruled out" are acceptable. IF IN AGREEMENT, YOU MUST DOCUMENT ABOVE DIAGNOSTIC STATEMENT IN DAILY PROGRESS NOTES AND DISCHARGE SUMMARY. This document is not part of the patient's record. Thank You, Bryant Murcia RN [phone]
[2017-09-15] MEDS: ASPIRIN 81 MG ECTAB PO SCH (08:27)
[2017-09-15] MEDS: ATORVASTATIN 40 MG TAB PO SCH (08:28)
[2017-09-15] MEDS: METOPROLOL SUCC 25MG EXT REL TAB PO SCH (08:29)
[2017-09-15] MEDS: MAGNESIUM OXIDE 400 MG TAB PO SCH (08:29)
[2017-09-15 08:47] LABS: PTT PATIENT 54.5 SECONDS (21.0-31.0)
[2017-09-15 08:57] LABS: CREATININE 1.71 mg/dl (0.60-1.40)
[2017-09-15 08:58] LABS: CALCIUM 8.3 mg/dl (8.5-10.1); POTASSIUM 3.9 mmol/L (3.5-5.1)
[2017-09-15] MEDS ORDERED: FUROSEMIDE 80 MG TAB PO SCH (09:00)
[2017-09-15 09:07] LABS: TOTAL PROTEIN 5.9 gm/dl (6.4-8.2)
--- NOTE | 2017-09-15 09:38 | Progress Note ---
Internal Med Progress Note Date of Service: Sep 15, 2017. Provider Documentation: SUBJECTIVE: Patient seen and examined in ICU bed 6 On high flow oxygen, Offers no complaint of chest heaviness, shortness of breath Patient refused to take his a.m. medications including Lasix Concerned that medication is not given to him the way he was taking at home Patient is counseled Because he presented with significant volume overload, shortness of breath Lasix will be helpful to get rid of the additional fluids and possibly help him to breathe better Patient voiced understanding, was willing to take the a.m. meds OBJECTIVE: Vital Signs-as noted below Exam: General-no apparent distress noted Eyes-sclera nonicteric ENT- on high flow excision via nasal cannula Neck-positive JVD Lungs- diminished, rales at bases Heart-regular S1-S2 soft nontender +1 Abdomen- Extremities-bilateral lower extremity edema with chronic venous stasis changes 1 cmX 2 cm shallow wound on RT lower extremity and ayala/dressing present Neuro- no focal neurological deficit, alert awake oriented 3 Lab data as noted below. ASSESSMENT & PLAN: COR PULMONALE/RIGHT VENTRICULAR FAILURE: History of chronic pulmonary hypertension noted in cardiac cath in 2009 CT of the chest with contrast-shows cardiomegaly with dilated right ventricle possible filling defect in the left main pulmonary artery/ Patient will benefit with left and right heart cath -Not agreeable for any cardiac infarct intervention -On empiric treatment with IV heparin -Resting echo ordered -Appreciate input from cardiology and daycare teacher ACUTE ON CHRONIC HYPOXEMIC RESPIRATORY FAILURE/PULMONARY HYPERTENSION: -Multifactorial -Volume overload/acute right heart failure -History of COPD, chronic right hemidiaphragm paralysis, Pulmonary hypertension-leading to cor pulmonale with unknown etiology Presented with acute hypoxemic episode Was prescribed for home O2 2 L Has not been using it due to inconvenience -Patient is continued with high flow oxygen via nasal cannula With FiO2 85% Sole Blacker following closely NON-ST ELEVATED ND/TYPE 2 NSTEMI : -Possible secondary to acute hypoxemic state/acute right heart failure / cor pulmonale -Denies of any anginal symptoms patient is a very poor historian- -history of coronary artery disease status post CABG 4 vessel in 2009 -Appreciate input from cardiology -Patient is continued with IV heparin, continue aspirin, high intensity statin treatment -Resting echo ordered -Patient will benefit from right and left heart cardiac cath-which he has been diffusing STATUS POST BIOPROSTHETIC MITRAL VALVE REPLACEMENT -In 2010 -Resting echo ordered ACUTE RIGHT HEART FAILURE -Patient is continued with diuresis -Monitor input output -Refuses to have Andrews catheter placed cardiology following - HYPERTENSION At present hypotensive continue to hold antihypertensive DYSLIPIDEMIA -On high statin dose for ACS SEPSIS DUE TO RIGHT LOWER EXTREMITY INFECTED WOUND -meets criteria for sepsis : presented with tachycardia /leukocytosis /elevated lactic acid resolved with IV Hydration /abx tx --Empiric antibiotic with vancomycin/cefepime -Follows with wound care clinic -Wound care consulted -follow wound culture/blood culture DVT PROPHYLAXIS IV heparin weight-based protocol CODE STATUS: DNR/DNI-patient does not want any attempts of resuscitative measure in case of cardio pulmonary arrest DISPOSITION To be determined Remains critically ill in ICU Dependent on high flow oxygen Patient is very difficult to manage- poorly compliant with medication/oxygen therapy at home Refusing all cardiac intermittent intervention, medication change Will need PT OT evaluation, when medically stable Service consulted for discharge planning Vital Signs: Date Time Temp Pulse Resp B/P (MAP) Pulse Ox O2 Delivery O2 Flow Rate FiO2 09/16/17 04:00 89 High Flow Oxygen 40.0 45 09/16/17 00:01 89 High Flow Oxygen 45 09/15/17 20:00 High Flow Oxygen 40.0 45 09/15/17 19:00 102 16 89/57 (68) 89 High Flow Oxygen 40.0 09/15/17 18:00 110 17 98/64 (75) 92 High Flow Oxygen 40.0 09/15/17 17:00 114 24 91/52 (65) 91 High Flow Oxygen 40.0 09/15/17 16:01 36.7 106 15 90/55 (67) 92 High Flow Oxygen 45.0 09/15/17 16:00 High Flow Oxygen 40.0 09/15/17 15:00 114 21 97/58 (71) 90 High Flow Oxygen 45.0 09/15/17 12:00 95 High Flow Oxygen 45.0 09/15/17 12:00 36.8 107 22 92/57 (69) 90 High Flow Oxygen 45.0 Lab Results: Results Past 24 Hours Test 09/15/17 16:48 09/15/17 17:15 09/15/17 22:30 09/16/17 04:46 Range/Units Bedside Glucose 110 91 70-99 mg/dl Urine Color YELLOW Urine Appearance CLOUDY CLEAR Urine pH 5.0 4.5-7.5 Urine Specific [place] 1.016 1.000-1.030 Urine Protein NEG NEG Urine Glucose (UA) NEG NEG Urine Ketones NEG NEG Urine Occult Blood 1+ NEG Urine Nitrite NEG NEG Urine Bilirubin NEG NEG Urine Urobilinogen NEG NEG Urine Leukocyte Esterase LARGE NEG Urine WBC (Auto) >30 0-5 /hpf Urine RBC (Auto) 5-10 0-4 /hpf Urine Hyaline Casts (Auto) 5-10 0-5 /lpf Urine Epithelial Cells (Auto) 20-30 0-5 /lpf Urine Bacteria (Auto) NEG NEG Urine Yeast (Auto) NONE PRSENT White Blood Count 8.11 4.8-10.8 K/uL Red Blood Count 4.46 4.7-6.1 M/uL Hemoglobin 15.0 14.0-18.0 g/dL Hematocrit 44.4 42-52 % Mean Corpuscular Volume 99.6 80-100 fL Mean Corpuscular Hemoglobin 33.6 25-34 pg Mean Corpuscular Hemoglobin Concent 33.8 32-36 g/dl Platelet Count 109 130-400 K/uL Mean Platelet Volume 9.9 7.4-10.4 fL Neutrophils (%) (Auto) 82.1 % Lymphocytes (%) (Auto) 8.0 % Monocytes (%) (Auto) 7.4 % Eosinophils (%) (Auto) 1.8 % Basophils (%) (Auto) 0.2 % Neutrophils # (Auto) 6.65 1.4-6.5 K/uL Lymphocytes # (Auto) 0.65 1.2-3.4 K/uL Monocytes # (Auto) 0.60 0.11-0.59 K/uL Eosinophils # (Auto) 0.15 0-0.5 K/uL Basophils # (Auto) 0.02 0-0.2 K/uL RDW Standard Deviation 60.1 36.4-46.3 fL RDW Coefficient of Variation 16.7 11.5-14.5 % Immature Granulocyte % (Auto) 0.5 % Immature Granulocyte # (Auto) 0.04 0.00-0.02 K/uL Prothrombin Time 12.8 9.0-12.0 SECONDS Prothromb Time International Ratio 1.2 0.9-1.1 Activated Partial Thromboplast Time 49.9 21.0-31.0 SECONDS Partial Thromboplastin Ratio 1.9 Sodium Level 136 136-145 mmol/L Potassium Level 3.1 3.5-5.1 mmol/L Chloride Level 101 98-107 mmol/L Carbon Dioxide Level 27 21-32 mmol/L Anion Gap 8.0 3-11 mmol/L Blood Urea Nitrogen 41 7-18 mg/dl Creatinine 1.55 0.60-1.40 mg/dl Est Creatinine Clear Calc Drug Dose 41.1 ml/min Estimated GFR () 48.3 Estimated GFR (Non- 41.7 BUN/Creatinine Ratio 26.7 10-20 Random Glucose 99 70-99 mg/dl Calcium Level 8.0 8.5-10.1 mg/dl Phosphorus Level 3.7 2.5-4.9 mg/dl Magnesium Level 2.1 1.8-2.4 mg/dl Microbiology Results 09/15/17 Urine Culture, Received Pending
--- NOTE | 2017-09-15 10:47 | Cardiology Consultation ---
Cardiology Consultation Date of Consultation: Sep 15, 2017. Requesting Physician: Dr. Mcdonald Attending Physician: Dr. Jameson Reason for Consultation: RV failure Pt evaluation today including: conversation w/ patient, physical exam, chart review, lab review, review of studies, conversation w/ mainframe consultant, review of inpatient medication list History of Present Illness Mr. Leonard is a pleasant 81 year old gentleman with a history significant for multivessel CAD status post CABG x 4, bioprosthetic aortic valve replacement for mitral regurgitation, CHF, cor pulmonale, pulmonary hypertension, hypertension, CKD, and dyslipidemia. His right hemidiaphragm is significantly elevated. He is prescribed 2 L of supplemental oxygen. He was diagnosed with significant pulmonary hypertension as far back as 2010 when he had a stress test as noted below demonstrating moderate pulmonary hypertension which became severe with exertion. This was also present a dobutamine stress echo on 08/30/14. He has had the following studies/procedures: 1. CABG 4 and bioprosthetic mitral valve replacement in August 2009 at [facility]. 2. Stress echo 12/13/10: Nondiagnostic at 82% MPHR. Low normal LV systolic function at rest. RVSP 65 mmHg at rest and 92 mmHg with stress. 3. Dobutamine stress echo 08/30/14: Probably negative at 83% MPHR. Technically difficult study. Normal LV systolic function. Normal functioning bioprosthetic mitral valve. Moderate to severe tricuspid regurgitation with RVSP 60-65 mmHg at rest and increasing up to 80 mmHg. VQ scan August 2014: Low probability for PE. 4. Echo 09/13/14: Normal LV size and systolic function. EF 50-55%. Normal wall motion. Mild LVH. Moderate to severe RV dilation, with moderately to severely reduced systolic function. Mild right atrial dilation. Bioprosthetic mitral valve with incomplete Doppler data. Pleural effusion. Severely elevated RVSP, greater than 85 mmHg. 5. PFTs September 2014: Severe restrictive ventilatory defect. No evidence of significant obstruction. No change after inhaled bronchodilators. 6. Echo 12/03/2014: Patient refused IV definity and us poor quality study. Grossly normal LV size and systolic function. Septal motion consistent with RV pressure and volume overload. Severely dilated right ventricle with reduced systolic function. Mild AI. Prosthetic mitral valve with normal gradients. At least mild pulmonary hypertension suggested. 7. Echo 12/24/2015: Normal LV systolic function. EF 60-65%. No definite regional wall motion abnormalities. Septal flattening suggests RV volume and pressure overload. Severe RV dilation with moderately reduced systolic function. Mild to moderate right atrial dilation. Moderate AI. Bioprosthetic mitral valve with mildly elevated gradient, but appropriate velocities. No significant mitral stenosis or regurgitation. At least moderate pulmonary hypertension suggested. RVSP 57. 8. Echo 04/18/2016: Small LV size with normal systolic function. EF 65-70%. Flattened septum consistent with RV pressure overload. Severely dilated RV with moderate to severe RV dysfunction. Possible mitral stenosis. Mild AI. PA SP estimated at least 65-70 mmHg. 9. Echo 08/21/2016: Normal LV size and systolic function. Normal wall motion. EF 60-65%. Septal flattening consistent with RV volume overload. Mild LVH. Type 1 diastolic dysfunction. Severely dilated RV with moderately reduced systolic function. Mild AI. Bioprosthetic mitral valve with mildly elevated mean gradient, but appropriate velocities. At least mild to moderate TR. RVSP 81. Mr. Leonard presented to [facility] yesterday with increased swelling including swelling of his penis. His apparently called the cardiology office initially and was directed to go to the emergency department. He admits that he had not been taking Lasix for at least 1 week as it interferes with his scheduled daily activities. He tends to take Lasix only if he remains home for the day and admits that for the past week he has had a busy year schedule socially. He has been noncompliant with medical therapy as well as follow-up visits in the office. His last visit however was 07/28/2017 when he appears hypervolemic as he was taking Lasix only once or twice per week at that time. He was to follow up with the Heart failure program 2-3 weeks later but he canceled that appointment and then no showed for his repeated follow-up and then once again canceled for a total of 3 missed appointments for heart failure follow-up since 07/28/2017. He denies shortness of breath, chest pain, syncope, near-syncope, palpitations, or bleeding such as melena, hematochezia, or hematuria. He denies abdominal pain, nausea, or vomiting. While hospitalized, he was given dopamine for short period of time while in the ICU and apparently became more tachycardic and therefore was discontinued. He is now on high-flow nasal cannula supplemental oxygen and his oxygen saturation remains in the 80s but he is not short of breath. He apparently refused Lasix last evening and has not yet taken his Lasix this morning however nursing staff has given him the pills to take. He has declined in the past further evaluation such as right heart catheterization and continues to do so. Review of systems: As above and review of systems otherwise negative/ unremarkable. Past Medical/Surgical History 1. Cor pulmonale/right ventricular failure 2. Pulmonary hypertension 3. CAD status post CABG x4 4. Bioprosthetic mitral valve replacement August 2009 at same time of CABG 5. Hypertension 6. CKD 7. Dyslipidemia 8. Right hemidiaphragm elevation 9. Noncompliance 10. Hypotension 11. Hypokalemia Family History No pertinent family history Mother at 78 with CHF. Father at 57 with liver disease. No known premature CAD. Social History Smoking Status: Never Smoker Denies tobacco or drug abuse. He consumes wine. 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 He is (Nicolette) and has 2 daughters. Currently no family members at his bedside. Review of Systems Cardiac: + edema Allergies Coded Allergies: No Known Allergies (Unverified , 09/14/17) Medications Current Inpatient Medications Medications (Trade) Dose Ordered Sig/Bakari Route Start Time Stop Time Status Last Admin Dose Admin Ioversol (Optiray 320) 125 ml UD PRN IV 09/14/17 13:30 09/18/17 13:29 Acetaminophen (Tylenol Tab) 650 mg Q4H PRN PO 09/14/17 16:00 10/14/17 15:59 Albuterol/ Ipratropium (Duoneb) 3 ml QID PRN INH 09/14/17 16:00 10/14/17 15:59 Miscellaneous Information (Icu Protocol For Hyperglycemia) 1 ea PRN PRN N/A 09/14/17 16:00 09/16/17 15:59 Aspirin (Ecotrin Tab) 162 mg DAILY PO 09/15/17 09:00 10/15/17 08:59 09/15/17 08:27 162 MG Atorvastatin Calcium (Lipitor Tab) 40 mg DAILY PO 09/15/17 09:00 10/15/17 08:59 09/15/17 08:28 40 MG Magnesium Oxide (Mag-Ox Tab) 400 mg QAM PO 09/15/17 09:00 10/15/17 08:59 09/15/17 08:29 400 MG Metoprolol Succinate (Toprol Xl Tab) 25 mg DAILY PO 09/15/17 09:00 10/15/17 08:59 Miscellaneous Information (Consult) 1 ea UD PRN N/A 09/14/17 18:30 10/14/17 18:29 Furosemide (Lasix Tab) 80 mg BID17 PO 09/15/17 09:00 10/15/17 08:59 09/15/17 08:28 80 MG Cefepime HCl (Consult) 1 ea UD PRN N/A 09/14/17 21:00 10/14/17 20:59 Cefepime HCl 2000 mg/Syringe 20 ml @ 5 mls/min DAILY@2000 IV 09/14/17 21:00 09/24/17 20:59 09/14/17 22:31 5 MLS/MIN Vancomycin HCl 1500 mg/Sodium Chloride 530 ml @ 200 mls/hr Q24H IV 09/15/17 20:00 09/25/17 19:59 Heparin Sodium/ Dextrose 500 ml @ 19 mls/hr Q24H IV 09/15/17 01:45 10/15/17 01:44 09/15/17 02:09 19 MLS/HR Physical Exam Vital Signs Past 12 Hours Date Time Temp Pulse Resp B/P (MAP) Pulse Ox O2 Delivery O2 Flow Rate FiO2 09/15/17 04:00 85 High Flow Oxygen 40.0 50 09/15/17 00:01 83 High Flow Oxygen 40.0 50 09/15/17 00:01 89 17 87/55 (66) 84 High Flow Oxygen 40.0 50 09/14/17 23:01 36.7 86 19 95/57 (70) 88 High Flow Oxygen 40.0 50 Gen.: No acute distress. Alert and oriented. HEENT: Anicteric sclera. Neck: Jugular veins engorged to the mandible sitting upright. Cardiac: PMI was nonpalpable. No ventricular heave. Regular, without ectopy. Normal S1-S2. 2/6 holosystolic murmur, heard throughout. No rubs or gallops. Pulmonary: Lungs were clear to auscultation bilaterally without wheezes, rales, or rhonchi. Abdomen: Soft, nontender, nondistended, with normoactive bowel sounds. Pitting edema lower abdomen, 1+. Extremities: 2+ radial pulses bilaterally. 1+ posterior tibialis pulses bilaterally. 1 to 2+ bilateral lower extremity edema to the hips. Chronic venous stasis changes. Fingernail beds cyanotic. Psychiatric: Affect appears appropriate. Data Laboratory Results: Last 24 Hours Test 09/14/17 12:41 09/14/17 12:46 09/14/17 12:55 09/14/17 13:30 White Blood Count 15.49 K/uL Red Blood Count 4.82 M/uL Hemoglobin 16.4 g/dL Hematocrit 47.8 % Mean Corpuscular Volume 99.2 fL Mean Corpuscular Hemoglobin 34.0 pg Mean Corpuscular Hemoglobin Concent 34.3 g/dl Platelet Count 139 K/uL Mean Platelet Volume 10.3 fL Neutrophils (%) (Auto) 88.4 % Lymphocytes (%) (Auto) 4.8 % Monocytes (%) (Auto) 6.3 % Eosinophils (%) (Auto) 0.1 % Basophils (%) (Auto) 0.1 % Neutrophils # (Auto) 13.69 K/uL Lymphocytes # (Auto) 0.75 K/uL Monocytes # (Auto) 0.98 K/uL Eosinophils # (Auto) 0.01 K/uL Basophils # (Auto) 0.02 K/uL RDW Standard Deviation 61.0 fL RDW Coefficient of Variation 16.8 % Immature Granulocyte % (Auto) 0.3 % Immature Granulocyte # (Auto) 0.04 K/uL Erythrocyte Sedimentation Rate 26 mm/hr Sodium Level 135 mmol/L Potassium Level mmol/L 4.1 mmol/L Chloride Level 105 mmol/L Carbon Dioxide Level 21 mmol/L Anion Gap 9.0 mmol/L Blood Urea Nitrogen 37 mg/dl Creatinine 1.64 mg/dl Est Creatinine Clear Calc Drug Dose 40.7 ml/min Estimated GFR () 45.1 Estimated GFR (Non- 38.9 BUN/Creatinine Ratio 22.5 Random Glucose 88 mg/dl Calcium Level 8.3 mg/dl Phosphorus Level 3.3 mg/dl Magnesium Level mg/dl 2.2 mg/dl Total Bilirubin 3.6 mg/dl Aspartate Amino Transf (AST/SGOT) U/L 35 U/L Alanine Aminotransferase (ALT/SGPT) 26 U/L Alkaline Phosphatase 283 U/L Total Creatine Kinase U/L 131 U/L Creatine Kinase MB 8.1 ng/ml Creatine Kinase MB Ratio Troponin I 0.949 ng/ml C-Reactive Protein 4.97 mg/dl Pro-B-Type Natriuretic Peptide 9792 pg/ml Total Protein 6.4 gm/dl Albumin 2.2 gm/dl Globulin 4.2 gm/dl Albumin/Globulin Ratio 0.5 Lipase 67 U/L Bedside Lactic Acid Venous 2.79 mmol/L Venous Blood pH 7.45 Venous Blood Partial Pressure CO2 36 mmHg Venous Blood Partial Pressure O2 26 mmHg Venous Blood HCO3 24 mmol/L Venous Blood Oxygen Saturation < 60.0 % Venous Blood Base Excess 0.6 mEq/L Prothrombin Time 15.9 SECONDS Prothromb Time International Ratio 1.5 Activated Partial Thromboplast Time 33.4 SECONDS Partial Thromboplastin Ratio 1.3 Test 09/14/17 18:22 09/14/17 19:01 09/14/17 20:48 09/14/17 23:49 Lactic Acid Level 2.3 mmol/L D-Dimer 990 ug/L [facility] Troponin I 5.640 ng/ml Bedside Glucose 97 mg/dl 101 mg/dl Test 09/15/17 00:30 09/15/17 01:39 09/15/17 05:12 09/15/17 06:18 Troponin I 6.980 ng/ml White Blood Count 13.38 K/uL 12.75 K/uL Red Blood Count 4.91 M/uL 4.56 M/uL Hemoglobin 16.5 g/dL 15.6 g/dL Hematocrit 49.1 % 45.3 % Mean Corpuscular Volume 100.0 fL 99.3 fL Mean Corpuscular Hemoglobin 33.6 pg 34.2 pg Mean Corpuscular Hemoglobin Concent 33.6 g/dl 34.4 g/dl Platelet Count 138 K/uL 136 K/uL Mean Platelet Volume 11.0 fL 9.9 fL Neutrophils (%) (Auto) 86.0 % 83.6 % Lymphocytes (%) (Auto) 7.2 % 7.6 % Monocytes (%) (Auto) 6.2 % 7.3 % Eosinophils (%) (Auto) 0.3 % 0.9 % Basophils (%) (Auto) 0.1 % 0.2 % Neutrophils # (Auto) 11.49 K/uL 10.67 K/uL Lymphocytes # (Auto) 0.97 K/uL 0.97 K/uL Monocytes # (Auto) 0.83 K/uL 0.93 K/uL Eosinophils # (Auto) 0.04 K/uL 0.11 K/uL Basophils # (Auto) 0.02 K/uL 0.02 K/uL RDW Standard Deviation 61.1 fL 60.6 fL RDW Coefficient of Variation 16.8 % 16.9 % Immature Granulocyte % (Auto) 0.2 % 0.4 % Immature Granulocyte # (Auto) 0.03 K/uL 0.05 K/uL Prothrombin Time 15.3 SECONDS Prothromb Time International Ratio 1.5 Activated Partial Thromboplast Time 34.5 SECONDS Partial Thromboplastin Ratio 1.3 Sodium Level 137 mmol/L Potassium Level 4.0 mmol/L Chloride Level 105 mmol/L Carbon Dioxide Level 25 mmol/L Anion Gap 7.0 mmol/L Blood Urea Nitrogen 41 mg/dl Creatinine 1.64 mg/dl Est Creatinine Clear Calc Drug Dose 39.2 ml/min Estimated GFR () 45.1 Estimated GFR (Non- 38.9 BUN/Creatinine Ratio 25.3 Random Glucose 94 mg/dl Lactic Acid Level 1.6 mmol/L Calcium Level 8.1 mg/dl Magnesium Level 2.2 mg/dl Total Bilirubin 2.7 mg/dl Aspartate Amino Transf (AST/SGOT) 48 U/L Alanine Aminotransferase (ALT/SGPT) 19 U/L Alkaline Phosphatase 234 U/L Total Protein 5.9 gm/dl Albumin 1.9 gm/dl Globulin 4.0 gm/dl Albumin/Globulin Ratio 0.5 Bedside Glucose 87 mg/dl Test 09/15/17 07:19 09/15/17 08:14 Blood Gas Sample Site R Radial Bedside Blood Gas pH (LAB) 7.43 Bedside Blood Gas pCO2 (LAB) 33 mmHg Bedside Blood Gas pO2 (LAB) 45 mmHg Bedside Blood Gas HCO3 (LAB) 22 meq/L Bedside Blood Gas Total CO2 23 mEq/l Bedside Blood Gas Base Excess (LAB) -3.0 meq/L Bedside Blood Gas O2 Saturation 84.0 % Evangelista Test Pass Oxygen Delivery Device Hi Diogenes Can Bedside FiO2 53 % Activated Partial Thromboplast Time 54.5 SECONDS Partial Thromboplastin Ratio 2.1 Sodium Level 136 mmol/L Potassium Level 3.9 mmol/L Chloride Level 102 mmol/L Carbon Dioxide Level 25 mmol/L Anion Gap 9.0 mmol/L Blood Urea Nitrogen 40 mg/dl Creatinine 1.71 mg/dl Est Creatinine Clear Calc Drug Dose 37.3 ml/min Estimated GFR () 42.9 Estimated GFR (Non- 37.0 BUN/Creatinine Ratio 23.4 Random Glucose 83 mg/dl Calcium Level 8.3 mg/dl Magnesium Level 2.3 mg/dl Total Bilirubin 2.7 mg/dl Aspartate Amino Transf (AST/SGOT) 45 U/L Alanine Aminotransferase (ALT/SGPT) 20 U/L Alkaline Phosphatase 235 U/L Troponin I 5.810 ng/ml Pro-B-Type Natriuretic Peptide 8592 pg/ml Total Protein 5.9 gm/dl Albumin 2.0 gm/dl Globulin 3.9 gm/dl Albumin/Globulin Ratio 0.5 ECG personally reviewed. ECG 09/14/2017 sinus tachycardia 101 bpm. RBBB. Left posterior fascicular block. ECG 09/15/2017: Sinus rhythm 86 bpm. RBBB. Left posterior fascicular block. Telemetry personally reviewed. No arrhythmia noted. CTA 09/14/2017 report reviewed: No central emboli are visualized. Elevation of the right hemidiaphragm. Small right pleural effusion. Right basilar airspace opacities likely representing compressive atelectasis. Reading as per Radiology. Assessment & Plan ASSESSMENT/PLAN: 1. 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 This is a chronic issue with acute exacerbation likely secondary to noncompliance with diuretic therapy. He has already declined diuretic therapy here according to nursing staff. He is agreeable to start Lasix. He is prescribed Lasix 80 mg twice daily. Would recommend Lasix 80 mg IV b.i.d. and adjust dose if necessary to attain adequate diuresis. Given his significant RV dysfunction, if he becames hypotensive with systolic blood pressures in the 70s and 80s consistently, would recommend dobutamine drip to see if increase contractility of his right ventricle will improve his overall cardiac output. Currently his cardiac output is likely significantly declined due to his right heart failure. He is likely preload dependent. Avoid vasodilators. He declines any invasive evaluation or procedures regarding his cardiac issues. We discussed potential options as noted below. He prefers medical therapy only. 2. Acute NSTEMI: He did not present with acute coronary syndrome. Elevated troponins likely secondary to underlying coronary disease in the setting of hypoxia and hypo tension, with poor perfusion. He declines coronary angiography or other invasive measures. Agree with heparin drip. Aspirin 81 mg daily. High-intensity statin therapy. Continue low-dose beta-niru if tolerated. 3. Hypotension: Likely secondary to RV failure. Can use dobutamine drip as noted above. This was discussed with ICU critical care team. 4. Pulmonary hypertension: This is a chronic issue since at least 2010. He has declined further evaluation such as right heart catheterization which was once again discussed with him today. Repeat echocardiogram today. 5. Dyslipidemia: High-intensity statin therapy. 6. Bioprosthetic mitral valve: Echo evaluation pending. 7. Respiratory failure/hypoxia: He remains hypoxic and is asymptomatic. This is a chronic issue. As per Critical Care team. He declines any further evaluation with invasive measures. 8. Disposition: Cardiology will continue to follow. Patient care has been discussed with Dr. Mcdonald other critical care team. 60 minutes critical care time spent, with much of that time spent counseling patient also coordinating care with critical care team. Highly complex medical issues. Thank you for allowing me to participate in the care of your patient. Please call for any other questions or concerns. Sincerely, Tristen Rivas M.D.
[2017-09-15] MEDS ORDERED: DOBUTamine / D5W 500 MG IV PRN (11:00)
--- NOTE | 2017-09-15 13:09 | Critical Care Progress Note ---
Critical Care Progress Note Date of Service Sep 15, 2017. Attending Dr. Mcdonald Subjective No events overnight, the patient remains the same since last night, he continued to require high levels of oxygen, his O2 saturation has been on the low side, cyanotic when his body position is changed, remains in right ventricular failure. Continue to refuse medications as well as interventions. Objective The patient himself denies any shortness of breath, no cough and no chest pain, he continued to have cyanosis mainly in the periphery, he was able to sit out of the bed, His physical exam on 09/15/2017 showed peripheral cyanosis, blood pressure is 101/ 60 with map of 72, O2 saturation has been variable but 89% on 45 L with 45%. Heart rate is 107. JVP is still positive. Clear lung field, S1-S2 with systolic ejection murmur, previous sternotomy, abdomen is benign, edema with venous stasis in the periphery. His laboratory was reviewed as well. And the case discussed in details with Dr. Rivas. Assessment & Plan 1. Right ventricular failure. 2. Cor pulmonale. 3. Pulmonary hypertension, WHO class II/III. 4. Chronic hypoxic respiratory failure. 5. Chronic cellulitis right lower extremity. 6. Chronic kidney disease related to above. Plan: 1. Case discussed with Dr. Rivas and details, appreciate his input. 2. The patient appeared to be more receptive today to taking his medication and comply with treatment, his was at the bedside and had some positive effect on that regard. 3. I have spent ample time with him and his explaining the physiology of pulmonary hypertension and the right to left shunt and the reason he is not responding to oxygen. He understands all the details and all his questions and his 's questions were answered. The ultimate diagnostic and therapy that can be provided to this patient is with a PA catheter. He will think about it. Right and left heart catheter seems ideal with the patient is resistant to invasive procedure at this point. However if he agreed to a PA catheter, it will be helpful to assist confirming his pulmonary artery pressure and perform a vasodilator child, should the patient pulmonary artery pressure is less than 60. However, if the pulmonary artery pressure above than 60 will be relatively contraindicated, and above than 80 to be absolutely contraindicated to perform vasodilator trial which will place the patient at risk for acute pulmonary edema. 4. Agree with Dr. Rivas on starting the patient on dobutamine. In fact the patient tolerated 5 mics of dobutamine per kilogram per minute. His blood pressure remains acceptable with map of 72. 5. I will continue with oxygen via high flow FiO2 and maintain his O2 sat in the 80s only. 6. I will change his Lasix to IV 80 mg every 12 hours and I will give him the last dose at 4 PM. Patient does not like to be interrupted during the nighttime. He feels that diuresis close to his bedtime it would interfere with his sleep. 7. I will continue the antibiotics as prescribed although the patient refused them. 8. Keep the patient in the ICU. 9. Appreciate wound care consult. 10. Discussed with the staff on rounds and details. 11. Appreciate physical therapy. 12. The patient CODE STATUS will be changed to DNR as he does not want to be resuscitated in the event of cardiac arrest based on his wishes. His present at the bedside and confirmed his wishes. 13. Critical care time spent with the patient was 45 minutes. Data Medications: Current Inpatient Medications Medications (Trade) Dose Ordered Sig/Bakari Route Start Time Stop Time Status Last Admin Dose Admin Ioversol (Optiray 320) 125 ml UD PRN IV 09/14/17 13:30 09/18/17 13:29 Acetaminophen (Tylenol Tab) 650 mg Q4H PRN PO 09/14/17 16:00 10/14/17 15:59 Albuterol/ Ipratropium (Duoneb) 3 ml QID PRN INH 09/14/17 16:00 10/14/17 15:59 Miscellaneous Information (Icu Protocol For Hyperglycemia) 1 ea PRN PRN N/A 09/14/17 16:00 09/16/17 15:59 Aspirin (Ecotrin Tab) 162 mg DAILY PO 09/15/17 09:00 10/15/17 08:59 09/15/17 08:27 162 MG Atorvastatin Calcium (Lipitor Tab) 40 mg DAILY PO 09/15/17 09:00 10/15/17 08:59 09/15/17 08:28 40 MG Magnesium Oxide (Mag-Ox Tab) 400 mg QAM PO 09/15/17 09:00 10/15/17 08:59 09/15/17 08:29 400 MG Metoprolol Succinate (Toprol Xl Tab) 25 mg DAILY PO 09/15/17 09:00 10/15/17 08:59 Miscellaneous Information (Consult) 1 ea UD PRN N/A 09/14/17 18:30 10/14/17 18:29 Cefepime HCl (Consult) 1 ea UD PRN N/A 09/14/17 21:00 10/14/17 20:59 Cefepime HCl 2000 mg/Syringe 20 ml @ 5 mls/min DAILY@2000 IV 09/14/17 21:00 09/24/17 20:59 09/14/17 22:31 5 MLS/MIN Vancomycin HCl 1500 mg/Sodium Chloride 530 ml @ 200 mls/hr Q24H IV 09/15/17 20:00 09/25/17 19:59 Heparin Sodium/ Dextrose 500 ml @ 19 mls/hr Q24H IV 09/15/17 01:45 10/15/17 01:44 09/15/17 02:09 19 MLS/HR Dobutamine HCl 250 ml @ 0 mls/hr Q0M PRN IV 09/15/17 11:00 10/15/17 10:59 09/15/17 11:36 8.7 MLS/HR Furosemide 80 mg/ Syringe 8 ml @ 4 mls/min BID17 IV 09/15/17 17:00 10/15/17 16:59 Vital Signs: Date Time Temp Pulse Resp B/P (MAP) Pulse Ox O2 Delivery O2 Flow Rate FiO2 09/15/17 12:00 95 High Flow Oxygen 45.0 09/15/17 12:00 36.8 107 22 92/57 (69) 90 High Flow Oxygen 45.0 09/15/17 10:00 93 22 94/64 (74) 93 High Flow Oxygen 09/15/17 08:00 89 18 87/53 (64) 90 High Flow Oxygen 45.0 09/15/17 08:00 97 High Flow Oxygen 45.0 09/15/17 04:00 85 High Flow Oxygen 40.0 50 09/15/17 00:01 83 High Flow Oxygen 40.0 50 09/15/17 00:01 89 17 87/55 (66) 84 High Flow Oxygen 40.0 50 09/14/17 23:01 36.7 86 19 95/57 (70) 88 High Flow Oxygen 40.0 50 09/14/17 22:00 92 20 92/61 (71) 84 High Flow Oxygen 40.0 50 09/14/17 21:00 36.5 86 18 95/59 (71) 85 High Flow Oxygen 40.0 50 09/14/17 20:00 86 High Flow Oxygen 40.0 50 09/14/17 20:00 89 18 89/59 (69) 86 High Flow Oxygen 40.0 50 09/14/17 19:00 92 18 87/56 (66) 84 High Flow Oxygen 40.0 50 09/14/17 18:16 94 22 91/62 (72) 85 High Flow Oxygen 40.0 50 09/14/17 18:00 97 19 90/63 (72) 91 High Flow Oxygen 45.0 80 09/14/17 17:56 93 16 99/61 (74) 85 High Flow Oxygen 45.0 80 09/14/17 17:42 36.3 96 17 100/66 (77) 82 Oxymask 15.0 09/14/17 17:27 95 20 107/63 91 09/14/17 17:01 107/63 09/14/17 17:00 95 20 87 Oxymask 8.0 09/14/17 16:31 88/59 09/14/17 16:30 91 14 91 Oxymask 8.0 09/14/17 16:01 107/54 09/14/17 16:00 93 18 91 Oxymask 8.0 09/14/17 15:31 89/64 09/14/17 15:30 95 22 90 Oxymask 8.0 09/14/17 15:01 82/56 09/14/17 15:00 92 19 93 Oxymask 8.0 09/14/17 14:34 93 16 83/58 92 Oxymask 8.0 09/14/17 13:59 94 16 94/65 87 Oxymask 8.0 Laboratory Results: Last 24 Hours Test 09/14/17 13:30 09/14/17 18:22 09/14/17 19:01 09/14/17 20:48 Prothrombin Time 15.9 SECONDS Prothromb Time International Ratio 1.5 Activated Partial Thromboplast Time 33.4 SECONDS Partial Thromboplastin Ratio 1.3 Potassium Level 4.1 mmol/L Magnesium Level 2.2 mg/dl Aspartate Amino Transf (AST/SGOT) 35 U/L Total Creatine Kinase 131 U/L Lactic Acid Level 2.3 mmol/L D-Dimer 990 ug/L FEU Troponin I 5.640 ng/ml Bedside Glucose 97 mg/dl Test 09/14/17 23:49 09/15/17 00:30 09/15/17 01:39 09/15/17 05:12 Bedside Glucose 101 mg/dl Troponin I 6.980 ng/ml White Blood Count 13.38 K/uL 12.75 K/uL Red Blood Count 4.91 M/uL 4.56 M/uL Hemoglobin 16.5 g/dL 15.6 g/dL Hematocrit 49.1 % 45.3 % Mean Corpuscular Volume 100.0 fL 99.3 fL Mean Corpuscular Hemoglobin 33.6 pg 34.2 pg Mean Corpuscular Hemoglobin Concent 33.6 g/dl 34.4 g/dl Platelet Count 138 K/uL 136 K/uL Mean Platelet Volume 11.0 fL 9.9 fL Neutrophils (%) (Auto) 86.0 % 83.6 % Lymphocytes (%) (Auto) 7.2 % 7.6 % Monocytes (%) (Auto) 6.2 % 7.3 % Eosinophils (%) (Auto) 0.3 % 0.9 % Basophils (%) (Auto) 0.1 % 0.2 % Neutrophils # (Auto) 11.49 K/uL 10.67 K/uL Lymphocytes # (Auto) 0.97 K/uL 0.97 K/uL Monocytes # (Auto) 0.83 K/uL 0.93 K/uL Eosinophils # (Auto) 0.04 K/uL 0.11 K/uL Basophils # (Auto) 0.02 K/uL 0.02 K/uL RDW Standard Deviation 61.1 fL 60.6 fL RDW Coefficient of Variation 16.8 % 16.9 % Immature Granulocyte % (Auto) 0.2 % 0.4 % Immature Granulocyte # (Auto) 0.03 K/uL 0.05 K/uL Prothrombin Time 15.3 SECONDS Prothromb Time International Ratio 1.5 Activated Partial Thromboplast Time 34.5 SECONDS Partial Thromboplastin Ratio 1.3 Sodium Level 137 mmol/L Potassium Level 4.0 mmol/L Chloride Level 105 mmol/L Carbon Dioxide Level 25 mmol/L Anion Gap 7.0 mmol/L Blood Urea Nitrogen 41 mg/dl Creatinine 1.64 mg/dl Est Creatinine Clear Calc Drug Dose 39.2 ml/min Estimated GFR () 45.1 Estimated GFR (Non- 38.9 BUN/Creatinine Ratio 25.3 Random Glucose 94 mg/dl Lactic Acid Level 1.6 mmol/L Calcium Level 8.1 mg/dl Magnesium Level 2.2 mg/dl Total Bilirubin 2.7 mg/dl Aspartate Amino Transf (AST/SGOT) 48 U/L Alanine Aminotransferase (ALT/SGPT) 19 U/L Alkaline Phosphatase 234 U/L Total Protein 5.9 gm/dl Albumin 1.9 gm/dl Globulin 4.0 gm/dl Albumin/Globulin Ratio 0.5 Test 09/15/17 06:18 09/15/17 07:19 09/15/17 08:14 Bedside Glucose 87 mg/dl Blood Gas Sample Site R Radial Bedside Blood Gas pH (LAB) 7.43 Bedside Blood Gas pCO2 (LAB) 33 mmHg Bedside Blood Gas pO2 (LAB) 45 mmHg Bedside Blood Gas HCO3 (LAB) 22 meq/L Bedside Blood Gas Total CO2 23 mEq/l Bedside Blood Gas Base Excess (LAB) -3.0 meq/L Bedside Blood Gas O2 Saturation 84.0 % Evangelista Test Pass Oxygen Delivery Device Hi Diogenes Can Bedside FiO2 53 % Activated Partial Thromboplast Time 54.5 SECONDS Partial Thromboplastin Ratio 2.1 Sodium Level 136 mmol/L Potassium Level 3.9 mmol/L Chloride Level 102 mmol/L Carbon Dioxide Level 25 mmol/L Anion Gap 9.0 mmol/L Blood Urea Nitrogen 40 mg/dl Creatinine 1.71 mg/dl Est Creatinine Clear Calc Drug Dose 37.3 ml/min Estimated GFR () 42.9 Estimated GFR (Non- 37.0 BUN/Creatinine Ratio 23.4 Random Glucose 83 mg/dl Calcium Level 8.3 mg/dl Magnesium Level 2.3 mg/dl Total Bilirubin 2.7 mg/dl Aspartate Amino Transf (AST/SGOT) 45 U/L Alanine Aminotransferase (ALT/SGPT) 20 U/L Alkaline Phosphatase 235 U/L Troponin I 5.810 ng/ml Pro-B-Type Natriuretic Peptide 8592 pg/ml Total Protein 5.9 gm/dl Albumin 2.0 gm/dl Globulin 3.9 gm/dl Albumin/Globulin Ratio 0.5
--- NOTE | 2017-09-15 16:55 | ECHOCARDIOGRAM REPORT ---
*NOTICE TO RECEIVING DEMOCRAT AGENCY This information is strictly Confidential and protected under [place] law. [place] law prohibits you from making any further disclosure of this information unless further disclosure is expressly permitted by the written consent of the person to whom it pertains or is authorized by law. A general authorization for the release of medical or other information is not sufficient for this purpose. Hospital accepts no responsibility if the information is made available to any other person, INCLUDING THE PATIENT. Interpretation Summary * Name: ANDER JACKSON Study Date: 09/15/2017 07:33 AM BP: 87/55 mmHg * Patient Location: [facility] HR: 90 * : 1935 (M/d/yyyy) Gender: Male Height: 69 in * Age: 81 yrs Ethnicity: [place] Weight: 207 lb * Ordering Physician: Nguyen Mcdonald * Referring Physician: Self, Referred * Performed By: Nathaly Rios RDCS * * Reason For Study: CHF * BSA: 2.1 m2 * -- Conclusions -- * 1. Normal LV size. Normal LV wall thickness. * 2. Normal LV systolic function. LVEF 60-65%. Flattened septum consistent with RV volume overload * 3. Severely dilated RV with severe RV dysfunction * 4. Moderate tricuspid regurgitation. * 5. Moderate pulmonary hypertension. Estimated PASP greater than 50mmHg (IVC not visualized) * 6. Bioprosthetic mitral valve with mildly elevated transvalvular gradients consistent with possible mitral stenosis (mean gradient 7). * 7. Aortic valve sclerosis without stenosis * 8. Compared with prior study on 04/18/2016: No significant changes. Procedure Details * A contrast injection of Definity was performed to improve assessment of LV function. * Contrast was injected into an intravenous site in the left arm. * One vial of Definity ultrasound contrast was diluted in normal saline to a total volume of 10 ml. A total of '2' ml of solution was administered during imaging. * Lot # [id number] of Definity utilized for procedure. * Expiration date SEP 30. * The attending nurse who injected the contrast agent was JULIANA FERNANDEZ RN. Left Ventricle * The left ventricle is grossly normal size. * There is normal left ventricular wall thickness. * Ejection Fraction = 60-65%. * Flattened septum is consistent with RV volume overload. Right Ventricle * The right ventricle is severely dilated. * The right ventricular systolic function is moderate to severely reduced. Atria * The left atrial size is normal. * The right atrium is moderately dilated. Mitral Valve * Significant mitral regurgitation is absent. * There is a bioprosthetic mitral valve. * Transvalvular gradients consistent with possible mitral stenosis. Mean gradient 7 mmHg Tricuspid Valve * There is moderate tricuspid regurgitation. * Right ventricular systolic pressure is elevated at 50-60mmHg. Aortic Valve * Aortic valve sclerosis moderate, without significant aortic valvular stenosis. * There is no significant aortic regurgitation. Great Vessels * The aortic root and proximal ascending aorta are normal sized. Pericardium/Pleural * There is no pericardial effusion. MMode 2D Measurements and Calculations Ao root diam 3.1 cm Ao root area 7.6 cm\S\2 LA dimension 4.0 cm LA/Ao 1.3 LVOT diam 2.0 cm LVOT area 3.3 cm\S\2 LVAd ap4 21.5 cm\S\2 LVLd ap4 8.2 cm EDV(MOD-sp4) 46.3 ml EDV(sp4-el) 47.9 ml LVAs ap4 11.2 cm\S\2 LVLs ap4 5.6 cm ESV(MOD-sp4) 18.3 ml ESV(sp4-el) 19.1 ml EF(MOD-sp4) 60.4 % EF(sp4-el) 60.2 % LVAd ap2 26.5 cm\S\2 LVLd ap2 8.5 cm EDV(MOD-sp2) 71.8 ml EDV(sp2-el) 70.2 ml LVAs ap2 14.6 cm\S\2 LVLs ap2 6.8 cm ESV(MOD-sp2) 25.9 ml ESV(sp2-el) 26.4 ml EF(MOD-sp2) 63.9 % EF(sp2-el) 62.4 % LVLd %diff 3.8 % EDV(MOD-bp) 58.2 ml LVLs %diff 18.0 % ESV(MOD-bp) 23.8 ml EF(MOD-bp) 59.2 % SV(MOD-sp4) 28.0 ml SI(MOD-sp4) 13.3 ml/m\S\2 SV(MOD-sp2) 45.9 ml SI(MOD-sp2) 21.9 ml/m\S\2 SV(MOD-bp) 34.5 ml SI(MOD-bp) 16.4 ml/m\S\2 SV(sp4-el) 28.8 ml SI(sp4-el) 13.7 ml/m\S\2 SV(sp2-el) 43.8 ml SI(sp2-el) 20.9 ml/m\S\2 Doppler Measurements and Calculations MV E max monica 115.4 cm/sec MV A max monica 161.8 cm/sec MV E/A 0.71 Ao V2 max 155.4 cm/sec Ao max PG 9.7 mmHg Ao max PG (full) 6.6 mmHg Ao V2 mean 113.3 cm/sec Ao mean PG 5.5 mmHg Ao mean PG (full) 3.9 mmHg Ao V2 VTI 27.3 cm JAMES(I,A) 1.9 cm\S\2 JAMES(I,D) 1.9 cm\S\2 JAMES(V,A) 1.8 cm\S\2 JAMES(V,D) 1.8 cm\S\2 LV V1 max PG 3.0 mmHg LV V1 mean PG 1.6 mmHg LV V1 max 87.3 cm/sec LV V1 mean 60.9 cm/sec LV V1 VTI 16.1 cm SV(Ao) 208.4 ml SI(Ao) 99.4 ml/m\S\2 SV(LVOT) 52.5 ml SI(LVOT) 25.0 ml/m\S\2 TR max monica 323.3 cm/sec
[2017-09-15] MEDS: FUROSEMIDE INJ 80 MG in SYRINGE 0 ML IV SCH (18:32)
[2017-09-15] MEDS: VANCOMYCIN IV 1,500 MG in SODIUM CHLORIDE 0.9% 500ML 500 ML IV SCH (21:21)
[2017-09-15] MEDS: CEFEPIME IV 2,000 MG in SYRINGE 7.5 ML IV SCH (21:21)
[2017-09-16] VITALS (9 sets, daily range): BP systolic 76–97; BP diastolic 53–65; PULSE 64–102; TEMP 36.8–36.9; O2SAT 84–90
[2017-09-16] MEDS: HEPARIN 25,000 UNIT/500ML D5W 500 ML IV SCH (01:59)
[2017-09-16 05:04] LABS: BASO % 0.2 %; BASO ABS # 0.02 K/uL (0-0.2); EOS % 1.8 %; EOS ABS # 0.15 K/uL (0-0.5); HEMATOCRIT 44.4 % (42-52); IG# 0.04 K/uL (0.00-0.02); LYMPH ABS # 0.65 K/uL (1.2-3.4); MEAN CELL VOLUME 99.6 fL (80-100); MEAN CORPUSCULAR HEMOGLOBIN 33.6 pg (25-34); MEAN CORPUSCULAR HGB CONC 33.8 g/dl (32-36); MEAN PLATELET VOLUME 9.9 fL (7.4-10.4); MONO % 7.4 %; NEUT % 82.1 %; NEUT ABS # 6.65 K/uL (1.4-6.5); PLATELET COUNT 109 K/uL (130-400); RED CELL DISTRIBUTION WIDTH CV 16.7 % (11.5-14.5); RED CELL DISTRIBUTION WIDTH SD 60.1 fL (36.4-46.3); WHITE BLOOD COUNT 8.11 K/uL (4.8-10.8)
[2017-09-16 05:20] LABS: INR 1.2 (0.9-1.1)
[2017-09-16 05:31] LABS: PTT PATIENT 49.9 SECONDS (21.0-31.0)
[2017-09-16 05:38] LABS: CREATININE 1.55 mg/dl (0.60-1.40); PHOSPHORUS 3.7 mg/dl (2.5-4.9); POTASSIUM 3.1 mmol/L (3.5-5.1)
[2017-09-16] MEDS ORDERED: POTASSIUM CHLORIDE 20 MEQ/15 ML UDC PO STA (08:34)
[2017-09-16] MEDS: ATORVASTATIN 40 MG TAB PO SCH (09:10)
[2017-09-16] MEDS: METOPROLOL SUCC 25MG EXT REL TAB PO SCH (09:10)
[2017-09-16] MEDS: ASPIRIN 81 MG ECTAB PO SCH (09:10)
[2017-09-16] MEDS: MAGNESIUM OXIDE 400 MG TAB PO SCH (09:10)
[2017-09-16] MEDS: FUROSEMIDE INJ 80 MG in SYRINGE 0 ML IV SCH ×2 (09:11→18:01)
--- NOTE | 2017-09-16 09:54 | CARDIOLOGY PROGRESS NOTE ---
DATE: 09/16/2017 TIME: 9:22 a.m. SUBJECTIVE: Mr. Leonard states that his swelling has improved. He wants to go home. He denies shortness of breath, syncope, near syncope, palpitations or chest discomfort. He states he is not sleeping well due to urination. He only had 1 dose of IV Lasix yesterday which was in the evening. He otherwise took his p.o. Lasix yesterday in the morning. He states that he thinks he could do the same type of treatment at home, although he has been noncompliant with medical therapy at home on a consistent basis. We discussed the importance of medical therapy for his current issues and he is willing to stay for now, today. OBJECTIVE: VITAL SIGNS: Temperature 36.7 degrees, heart rate currently in the 90s on telemetry. Respiration rate 16, blood pressure 89/57 mmHg. Currently in the room, his systolic blood pressures is in the 90s. Oxygen saturation 89% on mask. Weight 85.8 kilograms, presenting weight was 86.6 kilograms, I's and O's are incomplete as he is largely incontinent according to nursing staff and has refused urinary catheters. GENERAL: No acute distress. He is alert and oriented. NECK: Engorged jugular veins to the mandible sitting upright. CARDIAC EXAMINATION: No ventricular heave. Regular, normal S1, S2. 2/6 systolic murmur. No rubs or gallops. LUNGS: Clear to auscultation bilaterally without wheezes, rales or rhonchi. ABDOMEN: Soft, nontender, nondistended. Normoactive bowel sounds. Trace to 1+ pitting edema in the lower abdominal flank areas. EXTREMITIES: Mildly cyanotic fingernail beds. 2+ lower extremity pitting edema in the dependent areas near the hips and proximal lower extremities bilaterally. 1+ bilateral lower extremity edema distally. PSYCHIATRIC: Affect appears appropriate. MEDICATIONS: Include aspirin 162 mg daily, Lipitor 40 mg daily, dobutamine drip at 5 mcg per kilogram per minute, Lasix 80 mg IV b.i.d., heparin drip per protocol, metoprolol succinate 25 mg daily, vancomycin 1.5 grams IV q. 24 hours. Telemetry personally reviewed. No arrhythmia. LABORATORY DATA: White blood cell count is 8.1, hemoglobin 15, platelets 109. Sodium 136, potassium 3.1, BUN 41, creatinine 1.55, down from 1.71, magnesium 2.1. Peak troponin was 6.98. Echocardiogram was performed yesterday and as per Dr. Martins normal LV systolic function with an EF of 60-65%. Flattened septum consistent with RV volume overload. Severely dilated RV with severely reduced systolic function. Moderate TR. PASP greater than 50. Bioprosthetic mitral valve with mildly elevated transvalvular gradients consistent with possible mitral stenosis with a mean gradient of 7. Sclerotic aortic valve without stenosis. Stable findings from 04/18/2016 echo. Chart reviewed. ASSESSMENT AND PLAN: 1. Acute on chronic right ventricular failure/cor pulmonale: He has chronic right heart failure which oftentimes is exacerbated due to the fact that he is noncompliant with medical therapy. Recommend continuation of Lasix 80 mg IV twice daily. Recommend the second dose for the day be done in the afternoon. This will hopefully allow him to get some more sleep overnight without being interrupted with urination. I's and O's are unable to be followed as he is largely incontinent according to nursing staff. Monitor daily weights closely. Can continue dobutamine as his renal function did improve then hopefully he will diurese more easily with better perfusion. Also, his blood pressure is tolerating it and as a whole, he appears to be having less significant hypotensive episodes as he was having systolic blood pressures in the 70s and 80s more consistently before dobutamine was initiated. 2. Acute non-ST elevation myocardial infarction: No significant wall motion abnormality on echocardiogram. This was likely secondary to hypoxia and hypotension with overall poor perfusion with his right ventricular failure. He has declined invasive measures such as coronary angiography as well as a right heart catheterization. Can continue with heparin drip for a total of 48 hours in regards to his non-ST elevation myocardial infarction. Continue aspirin. Recommend high intensity statin therapy. Continue low dose beta niru if tolerated. 3. Pulmonary hypertension: This is a chronic issue since at least 2010. He has declined right heart catheterization. 4. Hypotension: Improved with dobutamine. Continue at current dose and would recommend weaning from dobutamine when he is getting closer to discharge, but would continue for now. 5. Bioprosthetic mitral valve: Mildly elevated transvalvular gradient. Continue to follow. He has declined any invasive measures. 6. Acute on chronic respiratory failure/hypoxia: He is asymptomatic despite being chronically hypoxic as per critical care team. 7. Disposition: He states that he would like to go home and it was recommended that he remain hospitalized. He is considering leaving against medical advice, but it appears as though he will stay at least 1 more night and reassess tomorrow. Hopefully, if he is able to get some more sleep tonight, he will allow for further treatment. He was reminded that when he was home he was noncompliant with medical therapy. The patient's care has been discussed with Dr. Mcdonald of the critical care team. Cardiology will continue to follow. Forty minutes critical care time spent. Continue with inotropic therapy.
--- NOTE | 2017-09-16 11:48 | Critical Care Progress Note ---
Critical Care Progress Note Date of Service Sep 16, 2017. Attending Dr. Mcdonald (I follow his am not sure about the waist of time if you want to do the injectable consent listening absolutely well this is a single lumen) Subjective No events occurred overnight, the patient continued to refuse interventions including placement of Andrews catheter, he is more frustrated with being in the hospital and he would like to go home with as much equipment and pills as possible. The patient does not appear to realize the gravity of his illness however he would like to discuss further interventions with his as well. Objective The patient himself denies any shortness of breath, no cough and no chest pain, he continued to have cyanosis mainly in the periphery, he was able to sit out of the bed, His physical exam on 09/15/2017 showed peripheral cyanosis, blood pressure is 101/ 60 with map of 72, O2 saturation has been variable but 89% on 45 L with 45%. Heart rate is 107. JVP is still positive. Clear lung field, S1-S2 with systolic ejection murmur, previous sternotomy, abdomen is benign, edema with venous stasis in the periphery. His laboratory was reviewed as well. And the case discussed in details with Dr. Rivas. On 09/16/2017, the patient continues to be to do better. His vital signs are stable within his range including blood pressure of 87/49 and map of 61, heart rate of 101 and O2 saturation is variable between 85-92%. He was taken off the high flow oxygen and placed on the on the oxygen mask. At 6 L. Cyanosis much improved, distant breath sounds but clear, S1-S2 systolic ejection murmur, edema with venous stasis in the lower extremities, right lower extremity also has been well dressed. He is competent to make decisions, neurologically he is nonfocal. Assessment & Plan 1. Right ventricular failure. 2. Cor pulmonale. 3. Pulmonary hypertension, WHO class II/III. 4. Chronic hypoxic respiratory failure. 5. Chronic cellulitis right lower extremity. Right lower extremity ulcers noted. 6. Chronic kidney disease related to above. Improving by lab. Plan: 1. Case discussed with Dr. Rivas and details, appreciate his input. Dr. Rivas discussed the patient condition with the patient himself, and I had done the same thing, the patient continued to refuse interventions, he was noncompliant with his medications outpatient including taking Lasix, the patient stated that he would like to take his pills and go home only. He feels frustrated being in the hospital. 2. His urine output is very difficult to determine as the patient was incontinent of urine. He does not want Andrews catheter placed. I offered him even a urologist to place it but he does not want it at this point. 3. I have spent ample time with him and his explaining the physiology of pulmonary hypertension and the right to left shunt and the reason he is not responding to oxygen. He understands all the details and all his questions and his 's questions were answered. He does not seem to be receptive today to any intervention. Although options of treatment including dobutamine pump, change him to anticoagulants other than heparin, continue with antibiotics, awaiting sensitivity of the staph infection. The patient is stating that he is willing to take medications but he is disturbed that he could not go to sleep for the past 4 days he has been in ICU, I offered him a transfer to a regular floor but that does not seem to satisfy him as well. 4. Agree with Dr. Rivas on starting the patient on dobutamine. In fact the patient tolerated 5 mics of dobutamine per kilogram per minute. His blood pressure remains acceptable with map of 72. Given the fact the patient wants to go home, I elected to start tapering dobutamine by 1 mics per KG per minute every hour to off if his blood pressure and O2 saturation was tolerated. And he did not develop any peripheral cyanosis. 5. I will continue with oxygen and change it to nasal cannula at 6 L to maintain his O2 sat only in the 80s. 6. I will continue his Lasix to IV 80 mg every 12 hours . 7. I will continue the antibiotics as prescribed until the staph sensitivities back. Patient has sensitivity in the past which was MSSA. 8. The patient can be transferred to PACU level. 9. Stop heparin drip and start the patient on Eliquis 2.5 mg twice daily, this dose for only treatment of pulmonary hypertension and in a patient at high risk for venous thromboembolic event. 10. Discussed with the staff on rounds and details. 11. The patient will discuss his condition with his , and I attempted to take him off most of the IV medication in that regard in preparation for him if he decided to go home. 12. The patient CODE STATUS will be changed to DNR as he does not want to be resuscitated in the event of cardiac arrest based on his wishes. His present at the bedside and confirmed his wishes. 13. Critical care time spent with the patient was 45 minutes. Patient can be transferred to PACU with tapering dobutamine. Data Medications: Current Inpatient Medications Medications (Trade) Dose Ordered Sig/Bakari Route Start Time Stop Time Status Last Admin Dose Admin Ioversol (Optiray 320) 125 ml UD PRN IV 09/14/17 13:30 09/18/17 13:29 Acetaminophen (Tylenol Tab) 650 mg Q4H PRN PO 09/14/17 16:00 10/14/17 15:59 Albuterol/ Ipratropium (Duoneb) 3 ml QID PRN INH 09/14/17 16:00 10/14/17 15:59 Miscellaneous Information (Icu Protocol For Hyperglycemia) 1 ea PRN PRN N/A 09/14/17 16:00 09/16/17 15:59 Aspirin (Ecotrin Tab) 162 mg DAILY PO 09/15/17 09:00 10/15/17 08:59 09/16/17 09:10 162 MG Atorvastatin Calcium (Lipitor Tab) 40 mg DAILY PO 09/15/17 09:00 10/15/17 08:59 09/16/17 09:10 40 MG Magnesium Oxide (Mag-Ox Tab) 400 mg QAM PO 09/15/17 09:00 10/15/17 08:59 09/16/17 09:10 400 MG Metoprolol Succinate (Toprol Xl Tab) 25 mg DAILY PO 09/15/17 09:00 10/15/17 08:59 09/16/17 09:10 25 MG Miscellaneous Information (Consult) 1 ea UD PRN N/A 09/14/17 18:30 10/14/17 18:29 Vancomycin HCl 1500 mg/Sodium Chloride 530 ml @ 200 mls/hr Q24H IV 09/15/17 20:00 09/25/17 19:59 09/15/17 21:21 200 MLS/HR Heparin Sodium/ Dextrose 500 ml @ 19 mls/hr Q24H IV 09/15/17 01:45 10/15/17 01:44 09/16/17 01:59 19 MLS/HR Dobutamine HCl 250 ml @ 0 mls/hr Q0M PRN IV 09/15/17 11:00 10/15/17 10:59 09/15/17 11:36 8.7 MLS/HR Furosemide 80 mg/ Syringe 8 ml @ 4 mls/min BID17 IV 09/15/17 17:00 10/15/17 16:59 09/16/17 09:11 4 MLS/MIN Vital Signs: Date Time Temp Pulse Resp B/P (MAP) Pulse Ox O2 Delivery O2 Flow Rate FiO2 09/16/17 08:00 High Flow Oxygen Oxymask 09/16/17 04:00 89 High Flow Oxygen 40.0 45 09/16/17 00:01 89 High Flow Oxygen 45 09/15/17 20:00 High Flow Oxygen 40.0 45 09/15/17 19:00 102 16 89/57 (68) 89 High Flow Oxygen 40.0 09/15/17 18:00 110 17 98/64 (75) 92 High Flow Oxygen 40.0 09/15/17 17:00 114 24 91/52 (65) 91 High Flow Oxygen 40.0 09/15/17 16:01 36.7 106 15 90/55 (67) 92 High Flow Oxygen 45.0 09/15/17 16:00 High Flow Oxygen 40.0 09/15/17 15:00 114 21 97/58 (71) 90 High Flow Oxygen 45.0 09/15/17 12:00 95 High Flow Oxygen 45.0 09/15/17 12:00 36.8 107 22 92/57 (69) 90 High Flow Oxygen 45.0 Laboratory Results: Last 24 Hours Test 09/15/17 16:48 09/15/17 17:15 09/15/17 22:30 09/16/17 04:46 Bedside Glucose 110 mg/dl 91 mg/dl Urine Color YELLOW Urine Appearance CLOUDY Urine pH 5.0 Urine Specific [place] 1.016 Urine Protein NEG Urine Glucose (UA) NEG Urine Ketones NEG Urine Occult Blood 1+ Urine Nitrite NEG Urine Bilirubin NEG Urine Urobilinogen NEG Urine Leukocyte Esterase LARGE Urine WBC (Auto) >30 /hpf Urine RBC (Auto) 5-10 /hpf Urine Hyaline Casts (Auto) 5-10 /lpf Urine Epithelial Cells (Auto) 20-30 /lpf Urine Bacteria (Auto) NEG Urine Yeast (Auto) White Blood Count 8.11 K/uL Red Blood Count 4.46 M/uL Hemoglobin 15.0 g/dL Hematocrit 44.4 % Mean Corpuscular Volume 99.6 fL Mean Corpuscular Hemoglobin 33.6 pg Mean Corpuscular Hemoglobin Concent 33.8 g/dl Platelet Count 109 K/uL Mean Platelet Volume 9.9 fL Neutrophils (%) (Auto) 82.1 % Lymphocytes (%) (Auto) 8.0 % Monocytes (%) (Auto) 7.4 % Eosinophils (%) (Auto) 1.8 % Basophils (%) (Auto) 0.2 % Neutrophils # (Auto) 6.65 K/uL Lymphocytes # (Auto) 0.65 K/uL Monocytes # (Auto) 0.60 K/uL Eosinophils # (Auto) 0.15 K/uL Basophils # (Auto) 0.02 K/uL RDW Standard Deviation 60.1 fL RDW Coefficient of Variation 16.7 % Immature Granulocyte % (Auto) 0.5 % Immature Granulocyte # (Auto) 0.04 K/uL Prothrombin Time 12.8 SECONDS Prothromb Time International Ratio 1.2 Activated Partial Thromboplast Time 49.9 SECONDS Partial Thromboplastin Ratio 1.9 Sodium Level 136 mmol/L Potassium Level 3.1 mmol/L Chloride Level 101 mmol/L Carbon Dioxide Level 27 mmol/L Anion Gap 8.0 mmol/L Blood Urea Nitrogen 41 mg/dl Creatinine 1.55 mg/dl Est Creatinine Clear Calc Drug Dose 41.1 ml/min Estimated GFR () 48.3 Estimated GFR (Non- 41.7 BUN/Creatinine Ratio 26.7 Random Glucose 99 mg/dl Calcium Level 8.0 mg/dl Phosphorus Level 3.7 mg/dl Magnesium Level 2.1 mg/dl
--- NOTE | 2017-09-16 16:17 | Progress Note ---
Internal Med Progress Note Date of Service: Sep 16, 2017. Provider Documentation: SUBJECTIVE: Patient seen and examined in ICU bed 6 sitting on chair took off oxygen denies of any discomfort complains that he could not sleep last night due to Lasix wants to be discharged home tomorrow has been non compliant with Lasix dose at home as it made him to look for rest rooms frequently when he is out side was not taking it is he needed to go to the stores or visit someone pt is counselled for taking medications as instructed otherwise will have repeated hospital admission with heart failure /shortness of breath which eventually will lead to cardiac arrest and verbalizes understanding OBJECTIVE: Vital Signs-as noted below Exam: General-no apparent distress noted Eyes-sclera nonicteric ENT- cyanosis noted on earlobes , lips Neck-positive JVD Lungs- diminished, + rales at bases Heart-regular S1-S2 soft nontender +1 Abdomen- Extremities-bilateral lower extremity edema with chronic venous stasis changes 1 cmX 2 cm shallow wound on RT lower extremity and ayala/dressing present cyanotic finger tips noted Neuro- no focal neurological deficit, alert awake oriented 3 Lab data as noted below. ASSESSMENT & PLAN: COR PULMONALE/ACUTE RIGHT VENTRICULAR FAILURE: presented with SOB /vol over load , marked lower ext and scrotal edema due to severe Pulm HTN History of chronic pulmonary hypertension noted in cardiac cath in 2009 CT of the chest with contrast-shows cardiomegaly with dilated right ventricle possible filling defect in the left main pulmonary artery/ Patient will benefit with left and right heart cath -Not agreeable for any cardiac infarct intervention -has been empiric treatment with IV heparin -Resting echo : 1. Normal LV size. Normal LV wall thickness. * 2. Normal LV systolic function. LVEF 60-65%. Flattened septum consistent with RV volume overload * 3. Severely dilated RV with severe RV dysfunction * 4. Moderate tricuspid regurgitation. * 5. Moderate pulmonary hypertension. Estimated PASP greater than 50mmHg ( IVC not visualized) * 6. Bioprosthetic mitral valve with mildly elevated transvalvular gradients consistent with possible mitral stenosis (mean gradient 7). * 7. Aortic valve sclerosis without stenosis * 8. Compared with prior study on 04/18/2016: No significant changes. -Appreciate input from cardiology and cattle producers ACUTE ON CHRONIC HYPOXEMIC RESPIRATORY FAILURE/PULMONARY HYPERTENSION: -Multifactorial -Volume overload/acute right heart failure -History of COPD, chronic right hemidiaphragm paralysis, Pulmonary hypertension-leading to cor pulmonale with unknown etiology Presented with acute hypoxemic episode Was prescribed for home O2 2 L Has not been using it due to inconvenience-its big and heavy ,wants to have a portable one to carry around in grocery store -very poor prognosis weaned off High flow 02 to 6 L via nasal canula -was started on IV Dobutamine gtt, waned off very advanced lung disease with poor prognosis pt is updated regarding his disease process multiple times by Sports Therapist / Supply Chain Generalist and myself pt is aware , does not want any further intervention or testing wants to be discharged home as soon as possible so he can get a " good night sleep " NON-ST ELEVATED AK/TYPE 2 NSTEMI : -Possible secondary to acute hypoxemic state/acute right heart failure /severe cor pulmonale -Denies of any anginal symptoms patient is a very poor historian- -history of coronary artery disease status post CABG 4 vessel in 2009 -Appreciate input from cardiology -Patient is continued with IV heparin, continue aspirin, high intensity statin treatment -Resting echo above -Patient will benefit from right and left heart cardiac cath-which pt declined -very poor prognosis due to non compliance with medication /physician follow up -very limited life expectancy STATUS POST BIOPROSTHETIC MITRAL VALVE REPLACEMENT -In 2009 -Resting echo : Bioprosthetic mitral valve with mildly elevated transvalvular gradients consistent with possible mitral stenosis (mean gradient 7). pt refused to cardiac cath refusing to take diuretics has been cancelling out pt follow up -very poor prognosis HYPERTENSION was hypotensive for severe CHF/rt heart failure w as on Dobutamine gtt overnight weaned off Lopressor dose reduced will need continued Lasix for vol over load poor prognosis DYSLIPIDEMIA -On high statin dose for ACS SEPSIS DUE TO RIGHT LOWER EXTREMITY INFECTED WOUND -meets criteria for sepsis : presented with tachycardia /leukocytosis /elevated lactic acid resolved with IV Hydration /abx tx --Empiric antibiotic with vancomycin/cefepime -Follows with wound care clinic -Wound care consulted -will change ABx to Oral in next 24-48 hrs DVT PROPHYLAXIS IV heparin weight-based protocol CODE STATUS: DNR/DNI-patient does not want any attempts of resuscitative measure in case of cardio pulmonary arrest DISPOSITION d/w Sports Therapist not much to offer as pt been refusion almost all treatment plan will be transferred to Telemetry today cont IV diuresis overnight need arrangements made for portable 02 prior to discharge Service consulted for discharge planning Vital Signs: Date Time Temp Pulse Resp B/P (MAP) Pulse Ox O2 Delivery O2 Flow Rate FiO2 09/17/17 07:14 36.6 81 24 90/56 (67) 89 High Flow Oxygen 50 09/17/17 04:05 36.5 83 20 90/55 (67) 88 High Flow Oxygen 09/17/17 04:00 High Flow Oxygen 09/17/17 00:05 Nasal Cannula 4.0 09/16/17 23:11 36.8 87 22 95/65 (75) 88 Nasal Cannula 6.0 09/16/17 22:40 87 Nasal Cannula 4.0 09/16/17 20:46 36.9 79 14 88/61 (70) 87 Nasal Cannula 4.0 09/16/17 20:00 84 Nasal Cannula 4.0 09/16/17 16:00 84 Nasal Cannula 4.0 09/16/17 16:00 64 20 76/54 (61) 85 Nasal Cannula 4.0 09/16/17 12:00 86 Nasal Cannula 4.0 09/16/17 12:00 91 20 97/58 (71) 88 Nasal Cannula 4.0 Lab Results: Results Past 24 Hours Test 09/16/17 19:30 09/17/17 05:13 Range/Units Vancomycin Level Trough 21.1 SEE COMMENT mcg/ml Creatinine 1.56 0.60-1.40 mg/dl Est Creatinine Clear Calc Drug Dose 41.2 ml/min Estimated GFR () 47.9 Estimated GFR (Non- 41.3
[2017-09-16] MEDS ORDERED: VANCOMYCIN TROUGH ONE (19:30)
[2017-09-16] MEDS ORDERED: DOXYLAMINE SUCCINATE 25 MG PO PRN (20:00)
[2017-09-16] MEDS: VANCOMYCIN IV 1,500 MG in SODIUM CHLORIDE 0.9% 500ML 500 ML IV SCH (20:36)
[2017-09-16] MEDS: APIXABAN 2.5 MG TAB PO SCH (22:11)
[2017-09-17 04:05] VITALS: BP 90/55; PULSE 83; TEMP 36.5; O2SAT 88
[2017-09-17 06:22] LABS: CREATININE 1.56 mg/dl (0.60-1.40)
[2017-09-17 07:14] VITALS: BP 90/56; PULSE 81; TEMP 36.6; O2SAT 89
[2017-09-17] MEDS: METOPROLOL SUCC 25MG EXT REL TAB PO SCH (09:00)
[2017-09-17] MEDS: APIXABAN 2.5 MG TAB PO SCH (09:13)
[2017-09-17] MEDS: FUROSEMIDE INJ 80 MG in SYRINGE 0 ML IV SCH (09:13)
[2017-09-17] MEDS ORDERED: ELQ25 PO (10:31)
[2017-09-17] MEDS ORDERED: TPRSR25 PO (10:31)
[2017-09-17] MEDS ORDERED: POTA10PO PO (10:31)
[2017-09-17] MEDS ORDERED: ASPEC81 PO (10:32)
--- NOTE | 2017-09-17 10:41 | CARDIOLOGY PROGRESS NOTE ---
DATE: 09/17/2017 TIME: 10:03 a.m. SUBJECTIVE: Mr. Leonard denies shortness of breath, but admits that he was hypoxic this morning but did not feel any different in the sense of shortness of breath/dyspnea. He denies chest pain, palpitations, syncope or near syncope. He once again stated that he would like to go home soon. He has been weaned off of dobutamine by the critical care team. His daughter and son-in-law, Cristo, are present at the bedside. The patient is interested in a portable oxygen supply to improve his quality of life stating that he do more likely to use his oxygen if it was more convenient for him. OBJECTIVE: VITAL SIGNS: Temperature 36.6 degrees, heart rate is 81 beats per minute, respiration rate 24, blood pressure 90/56 mmHg, oxygen saturation 89% on high-flow supplemental oxygen with FiO2 of 0.5. I's and O's are not accurate as he is largely incontinent. Weight 86.7 kilograms however, he is now in another room using a different scale. GENERAL: No acute distress. He is alert and oriented. NECK: Engorged jugular vein to the mandible. CARDIAC EXAM: No ventricular heave. Regular, normal S1 and S2, 2/6 systolic murmur. No rubs or gallops. LUNGS: Clear, without wheezes, rales or rhonchi. ABDOMEN: Soft, nontender, nondistended. Normoactive bowel sounds. Trace pitting edema lower abdominal flank areas. EXTREMITIES: Mildly cyanotic fingernail beds. 2+ lower extremity pitting edema in the proximal dependent areas. Trace to 1+ bilateral lower extremity of the distal lower extremities. PSYCHIATRIC: Affect appears appropriate. MEDICATIONS: Include aspirin 162 mg daily, apixaban 2.5 mg p.o. b.i.d. as per pulmonology recommendations, atorvastatin 40 mg daily, Lasix 80 mg IV b.i.d., metoprolol succinate 25 mg daily, vancomycin 1.25 g IV q. 24 hours. Telemetry personally reviewed. No arrhythmia. LABORATORY DATA: Creatinine is 1.56. Chart reviewed. ASSESSMENT AND PLAN: 1. Acute on chronic right ventricular failure/cor pulmonale: We once again discussed his current cardiac issue. Recommended further diuresis as he still appears significantly hypervolemic. Recommended intensifying therapy, but he declines and refuses more aggressive diuresis. We had a long discussion about the fact that this process may take his life and the treatment is important. However, treatment is often difficult in this situation. He and his family were made aware. Family would prefer that he be more compliant. However, he is persistently stating that he will continue to decline certain things as previously noted. 2. Acute non-ST elevation myocardial infarction: No angina. Likely secondary to hypoxia and hypotension. Continue conservative therapy. Recommend high intensity statin therapy. Continue beta niru. 3. Pulmonary hypertension: Chronic issue since 2010 at least. He has declined further evaluation. 4. Hypotension: This did improve transiently with dobutamine. Dobutamine has been weaned off as he stated his wishes to go home. 5. Bioprosthetic mitral valve: Continue to follow. Stable, mildly elevated transvalvular gradient. 6. Acute on chronic respiratory failure/hypoxia: Chronic issue. Treatment as above. Critical care team has been involved. 7. Disposition: We had a long discussion today regarding his wishes. He still would like to be discharged. It was made known that the medical advice would be to continue current therapy and actually intensify therapy which he declines. The patient care has been discussed with Dr. Jameson of the primary hospitalist service. If he does leave today, heart failure followup will be arranged for him. Thanks for allowing me to participate in the care of Mr. Leonard. Dr. Lizama will be covering over the weekend for any questions or concerns.
[2017-09-17] MEDS ORDERED: POTASSIUM CHLORIDE 20 MEQ/15 ML UDC PO STA (10:43)
--- NOTE | 2017-09-17 11:00 | Discharge Instructions ---
Discharge Instructions Date of Service Sep 17, 2017. Admission Reason for Admission: Acute Respiratory Failure Discharge Discharge Diagnosis / Problem: ACUTE RIGHT HEART FAILURE /COR PULMANALE /ACUTE RESPIRATORY FAILURE Discharge Goals Goal(s): Increase independence, Improve disease control, Diagnostic testing, Therapeutic intervention Activity Recommendations Activity Limitations: as noted below ( TOLERATED ) . Instructions / Follow-Up Instructions / Follow-Up HOSPITAL FOLLOW UP : 09/21/2017 @ 2: [address] Boris Perez MD [facility] CARDIOLOGY FOLLOW UP : With Dr Evan Rivas Office will call with appointment IT IS VERY IMPORTANT FOR YOU TO TAKE MEDICATION DIRECTED BY YOUR DOCTOR AND KEEP ALL THE FOLLOW UP APPOINTMENTS WITH YOUR BELT LINE FEEDER AND FAMILY PHYSICIAN YOU HAVE ADVANCED HEART AND LUNG DISEASE NEED TO USE OXYGEN ALL THE TIME Call your Primary Care doctor if any of the following symptoms or problems start or get worse: * Shortness of breath or difficulty breathing * Wake up at night short of breath * Chest pain * Cough * Swelling of your hands, feet, or legs * More fatigued or tired with your normal activity * Palpitations - sudden fast heart beats WEIGHT * Weigh yourself every morning after using the bathroom. * Use the same scale. * Wear the same amount of clothing. * Write your weight down on a chart. * Call your Primary Care doctor if you gain more than 2-3 pounds in 1-2 days. MEDICATIONS * Use this discharge instruction sheet for medication instructions. * Take your medications at the time your doctor ordered. * Do not skip a dose of your medicines. * If you miss a dose of medicine, take it as soon as possible, but DO NOT DOUBLE A DOSE. * Read your medicine information when you get home. * Know all of the side effects of your medicine. If in doubt, ask your pharmacist * Call your Primary Care doctor's office if you have any side effects. * Be sure all of your doctors know what medicine and herbs you take (including cold, flu, and herbal medicine). Take the following with you to your follow-up doctor appointments: * Weight Chart * Medication List * List of questions Do not drink excessive alcohol, beer or wine. Current Hospital Diet Patient's current hospital diet: Low Sodium Diet (2gm Na), AHA Diet (Heart Healthy) Discharge Diet Recommended Diet: AHA Diet (Heart Healthy), Low Sodium Diet (2gm Na) Fluid Restriction: 1200 ml (5 cups) Pending Studies Studies pending at discharge: no Laboratory Results Lipid Panel Test 07/28/17 13:03 Range/Units Triglycerides Level 68 0-150 mg/dl Cholesterol Level 85 0-200 mg/dl HDL Cholesterol 43 mg/dl Cholesterol/HDL Ratio 2.0 LDL Cholesterol, Calculated 28 mg/dl Medical Emergencies . Who to Call and When: Call 911 or go to the Emergency Room if: * If at any time you feel your situation is an emergency * You have tightness or pain in your chest that does not go away with rest or Nitroglycerin * You are very short of breath even with rest . Non-Emergent Contact Non-Emergency issues call your: Primary Care Provider . . "Provider Documentation" section prepared by Tomasa Jameson. .
[2017-09-17] MEDS ORDERED: DXY100 PO (11:25)
--- NOTE | 2017-09-17 11:27 | Progress Note ---
Progress Note Date of Service Sep 17, 2017. Progress Note Right lower leg wound culture : Staphylococcus aureus: MSSA IV vancomycin discontinued Started with oral doxycycline 100 mg twice daily Will need total 10 days of treatment Need continued outpatient follow-up at the wound clinic Will benefit with home health visiting nurse for wound care Social service updated
[2017-09-17 11:29] VITALS: BP 93/59; PULSE 87; TEMP 36.8; O2SAT 88
[2017-09-17] MEDS ORDERED: DOXYCYCLINE HYCLATE 100 MG CAP PO SCH (11:30)
--- NOTE | 2017-09-17 12:40 | Discharge Summary ---
Discharge Summary Date of Service Sep 17, 2017. Discharge Summary Admission Date: Sep 14, 2017 at 16:00 Discharge Date: Sep 17, 2017 Discharge Disposition: Home with services Principal Diagnosis: ACUTE RIGHT HEART FAILURE /COR PULMONALE /ACUTE RESPIRATORY FAILURE Consultations: CARDIOLOGY - PATENT PROSECUTION PARALEGAL Medication Reconciliation New Medications: Aspirin (Aspirin EC Low Dose) 81 Mg Ectab 1 TAB PO DAILY for 30 Days, #30 TAB 2 Refills Doxycycline Hyclate (Doxycycline Hyclate) 100 Mg Cap 1 CAP PO BID for 7 Days, #14 CAP Apixaban (Eliquis) 2.5 Mg Tab 2.5 MG PO BID for 30 Days, #60 TAB 2 Refills Metoprolol Succinate (Metoprolol Succinate ER) 25 Mg Tabcr 25 MG PO DAILY for 30 Days, #30 TABS 2 Refills Changed Medications: Potassium Chloride (Potassium Chloride) 20 Meq Pow 40 MEQ PO DAILY for 30 Days, #60 PKT 2 Refills (Changed from: 20 MEQ; Refills: ) Continued Medications: Atorvastatin (Lipitor) 40 Mg Tab 40 MG PO DAILY, TAB Furosemide (Furosemide) 40 Mg Tab 80 MG PO BID Magnesium Oxide (Magnesium-Oxide) 400 Mg Tab 400 MG PO QAM, #30 TAB 2 Refills Metolazone (Metolazone) 5 Mg Tab 5 MG PO DAILY Discontinued Medications: Aspirin (Aspirin 81) 81 Mg Tab 162 MG PO DAILY Metoprolol Succinate (Metoprolol Succinate ER) 25 Mg Tabcr 25 MG PO BID Referrals At Discharge Follow up Referrals: Coverstitch Binder Referral - Within 1-2 Weeks with Evan Rvias MD Physician Referral - 09/21/17 with Boris Perez M.D. Admission Information HPI (per Admitting provider): Patient is 81 yr male with PMH of Diastolic CHF, Pulmonary Hypertension, CKD III , H/O MVR, CAD S/P CABG, chronic oxygen dependency presents with history of worsening B/L leg swelling, dysuria, weight gain and chronic Shortness of breath. Patient states he is on 2L of oxygen at home but has not been using it as advised. He occasionally uses it at bedtime and states usually not wearing oxygen doesn't cause his to be SOB. Patient was found to be hypoxic in 70s while in ED. He admits to being non complaint with medications and he noticed worsening of leg swelling, weight gain and also noticed to have swelling of his penis last night which has been causing dysuria. He also has been to wound clinic for RLE wound and was prescribed PO antibiotics which patient hasn't taken. He has been not taking his Lasix at least since 1 week and states it would be difficult for him to take his medications regularly if he is not at home secondary to increased Urinary frequency. Denies any history of chest pain , PND, dizziness, diaphoresis, cough, fever, chills, Headache, weakness, numbness, change in vision, vertigo, nausea, vomiting, abdominal pain, hematuria. Physical Exam (per Admitting): General Appearance: WD/WN, no apparent distress, + pertinent finding ( chronic ill appearing) Head: normocephalic, atraumatic Eyes: normal inspection, PERRL, EOMI, sclerae normal ENT: normal ENT inspection, hearing grossly normal Neck: supple, trachea midline Respiratory/Chest: chest non-tender, lungs clear, no accessory muscle use, + decreased breath sounds Cardiovascular: regular rate, rhythm, + tachycardia, + systolic murmur, + pertinent finding (2+ B/L edema, Post CABG surgical scar on chest ) Abdomen/GI: normal bowel sounds, non tender, soft Genitourinary - Male: + pertinent finding (Penis swollen) Back: normal inspection Extremities/Musculoskelatal: normal inspection, + pedal edema, + pertinent finding (Chronic venous stasis B/L ) Neurologic/Psych: box chipper II-XII nml as tested, no motor/sensory deficits, alert , normal mood/affect, oriented x 3 Skin: normal color, warm/dry Hospital Course He eager to be discharged home today 2 stay exercise earlier today Patient requires 2 L oxygen at last and 3 L with ambulation Arrangements made for home O2 with portable tank PHYSICAL EXAMINATION COR PULMONALE/ACUTE RIGHT VENTRICULAR FAILURE: presented with SOB /vol over load , marked lower ext and scrotal edema due to severe Pulm HTN History of chronic pulmonary hypertension noted in cardiac cath in 2009 CT of the chest with contrast-shows cardiomegaly with dilated right ventricle possible filling defect in the left main pulmonary artery/ Patient will benefit with left and right heart cath -Not agreeable for any cardiac infarct intervention -has been empiric treatment with IV heparin -Resting echo : 1. Normal LV size. Normal LV wall thickness. * 2. Normal LV systolic function. LVEF 60-65%. Flattened septum consistent with RV volume overload * 3. Severely dilated RV with severe RV dysfunction * 4. Moderate tricuspid regurgitation. * 5. Moderate pulmonary hypertension. Estimated PASP greater than 50mmHg ( IVC not visualized) * 6. Bioprosthetic mitral valve with mildly elevated transvalvular gradients consistent with possible mitral stenosis (mean gradient 7). * 7. Aortic valve sclerosis without stenosis * 8. Compared with prior study on 04/18/2016: No significant changes. -Appreciate input from cardiology and ski base trimmer Patient started with Eliquis Will be discharged home with p.o. beta-niru Outpatient follow-up with cardiology ACUTE ON CHRONIC HYPOXEMIC RESPIRATORY FAILURE/PULMONARY HYPERTENSION: -Multifactorial -Volume overload/acute right heart failure -History of COPD, chronic right hemidiaphragm paralysis, Pulmonary hypertension-leading to cor pulmonale with unknown etiology Presented with acute hypoxemic episode Was prescribed for home O2 2 L Has not been using it due to inconvenience-its big and heavy ,wants to have a portable one to carry around in grocery store -very poor prognosis weaned off High flow 02 to 6 L via nasal canula -was started on IV Dobutamine gtt, waned off very advanced lung disease with poor prognosis pt is updated regarding his disease process multiple times by Fraud Analyst / Coverstitch Binder and myself Wednesday pulse oximetry done Arrangement made for home O2 NON-ST ELEVATED SD/TYPE 2 NSTEMI : -Possible secondary to acute hypoxemic state/acute right heart failure /severe cor pulmonale -Denies of any anginal symptoms patient is a very poor historian- -history of coronary artery disease status post CABG 4 vessel in 2009 -Appreciate input from cardiology -Resting echo above -Patient will benefit from right and left heart cardiac cath-which pt declined -very poor prognosis due to non compliance with medication /physician follow up -very limited life expectancy STATUS POST BIOPROSTHETIC MITRAL VALVE REPLACEMENT -In 2009 -Resting echo : Bioprosthetic mitral valve with mildly elevated transvalvular gradients consistent with possible mitral stenosis (mean gradient 7). pt refused to cardiac cath refusing to take diuretics has been cancelling out pt follow up -very poor prognosis HYPERTENSION was hypotensive for severe CHF/rt heart failure w as on Dobutamine gtt overnight weaned off Lopressor dose reduced will need continued Lasix for vol over load poor prognosis DYSLIPIDEMIA -On high statin dose for ACS SEPSIS DUE TO RIGHT LOWER EXTREMITY INFECTED WOUND -meets criteria for sepsis : presented with tachycardia /leukocytosis /elevated lactic acid resolved with IV Hydration /abx tx --Empiric antibiotic with vancomycin/cefepime -Follows with wound care clinic -Wound care consulted She will be discharged with oral doxycycline DVT PROPHYLAXIS Eliquis CODE STATUS: DNR/DNI-patient does not want any attempts of resuscitative measure in case of cardio pulmonary arrest DISPOSITION Discharged home with home O2 Total time spent on discharge = 40 mins This includes examination of the patient, discharge planning, medication reconciliation, and communication with other providers. Discharge Instructions Discharge Instructions Date of Service Sep 17, 2017. Admission Reason for Admission: Acute Respiratory Failure Discharge Discharge Diagnosis / Problem: ACUTE RIGHT HEART FAILURE /COR PULMONALE /ACUTE RESPIRATORY FAILURE Discharge Goals Goal(s): Increase independence, Improve disease control, Diagnostic testing, Therapeutic intervention Activity Recommendations Activity Limitations: as noted below ( TOLERATED ) . Instructions / Follow-Up Instructions / Follow-Up HOSPITAL FOLLOW UP : 09/21/2017 @ 2: [address] Boris Perez MD [facility] CARDIOLOGY FOLLOW UP : With Dr Evan Rivas Office will call with appointment IT IS VERY IMPORTANT FOR YOU TO TAKE MEDICATION DIRECTED BY YOUR DOCTOR AND KEEP ALL THE FOLLOW UP APPOINTMENTS WITH YOUR WOOD SETTER AND FAMILY PHYSICIAN YOU HAVE ADVANCED HEART AND LUNG DISEASE NEED TO USE OXYGEN ALL THE TIME Call your Primary Care doctor if any of the following symptoms or problems start or get worse: * Shortness of breath or difficulty breathing * Wake up at night short of breath * Chest pain * Cough * Swelling of your hands, feet, or legs * More fatigued or tired with your normal activity * Palpitations - sudden fast heart beats WEIGHT * Weigh yourself every morning after using the bathroom. * Use the same scale. * Wear the same amount of clothing. * Write your weight down on a chart. * Call your Primary Care doctor if you gain more than 2-3 pounds in 1-2 days. MEDICATIONS * Use this discharge instruction sheet for medication instructions. * Take your medications at the time your doctor ordered. * Do not skip a dose of your medicines. * If you miss a dose of medicine, take it as soon as possible, but DO NOT DOUBLE A DOSE. * Read your medicine information when you get home. * Know all of the side effects of your medicine. If in doubt, ask your pharmacist * Call your Primary Care doctor's office if you have any side effects. * Be sure all of your doctors know what medicine and herbs you take (including cold, flu, and herbal medicine). Take the following with you to your follow-up doctor appointments: * Weight Chart * Medication List * List of questions Do not drink excessive alcohol, beer or wine. Current Hospital Diet Patient's current hospital diet: Low Sodium Diet (2gm Na), AHA Diet (Heart Healthy) Discharge Diet Recommended Diet: AHA Diet (Heart Healthy), Low Sodium Diet (2gm Na) Fluid Restriction: 1200 ml (5 cups) Pending Studies Studies pending at discharge: no Laboratory Results Lipid Panel Test 07/28/17 13:03 Range/Units Triglycerides Level 68 0-150 mg/dl Cholesterol Level 85 0-200 mg/dl HDL Cholesterol 43 mg/dl Cholesterol/HDL Ratio 2.0 LDL Cholesterol, Calculated 28 mg/dl Medical Emergencies . Who to Call and When: Call 911 or go to the Emergency Room if: * If at any time you feel your situation is an emergency * You have tightness or pain in your chest that does not go away with rest or Nitroglycerin * You are very short of breath even with rest . Non-Emergent Contact Non-Emergency issues call your: Primary Care Provider . . "Provider Documentation" section prepared by Tomasa Jameson. . Additional Copies To Boris Perez M.D.
[2017-09-17] MEDS: MAGNESIUM OXIDE 400 MG TAB PO SCH (13:21)
[2017-09-17] MEDS: ATORVASTATIN 40 MG TAB PO SCH (13:21)
[2017-09-17 14:55] VITALS: BP 93/59; PULSE 87; TEMP 36.8; O2SAT 88
[2017-09-18] MEDS ORDERED: VANCOMYCIN IV 1,250 MG in SODIUM CHLORIDE 0.9% 250ML 250 ML IV SCH ×2
== END 2017-09-17 15:44 | disposition home health service (06) | DRG 871 ==
LOC: EDBD 12:12 → C.EDA 12:13 → C.MSICU 16:00 → ENRESERV 16:12 → C.2T 09-16 21:27
PROVIDERS: ADMIT Internal Medicine; ATTEND Hospitalist
DX: A41.9 Sepsis, unspecified organism (principal); L03.115 Cellulitis of right lower limb; J96.21 Acute and chronic respiratory failure with hypoxia; I50.33 Acute on chronic diastolic (congestive) heart failure; I21.4 Non-ST elevation (NSTEMI) myocardial infarction; I26.99 Other pulmonary embolism without acute cor pulmonale; I13.0 Hypertensive heart and chronic kidney disease with heart failure and stage 1 through stage 4 chronic kidney disease, or unspecified chronic kidney disease; I27.29 Other secondary pulmonary hypertension; I50.813 Acute on chronic right heart failure; B95.61 Methicillin susceptible Staphylococcus aureus infection as the cause of diseases classified elsewhere; Z91.14 Patient's other noncompliance with medication regimen; J44.9 Chronic obstructive pulmonary disease, unspecified; J98.6 Disorders of diaphragm; N18.3 Chronic kidney disease, stage 3 (moderate); E78.5 Hyperlipidemia, unspecified; I25.10 Atherosclerotic heart disease of native coronary artery without angina pectoris; Z79.899 Other long term (current) drug therapy; Z79.82 Long term (current) use of aspirin; Z99.81 Dependence on supplemental oxygen; Z66 Do not resuscitate; Z95.2 Presence of prosthetic heart valve; Z95.1 Presence of aortocoronary bypass graft

== ENCOUNTER → 2017-09-23 | Outpatient (CLI) | payer OTHER, MEDICARE ==
[~2017-09-23] MED LIST changes: +ASPI-320 PO; -ASPI-435 PO; -CEPH500C PO; +DXY100 PO; +ELQ25 PO; +POTA10PO PO; -POTA20TA16 PO; -TPRSR/25 PO; +TPRSR25 PO
[2017-09-23 14:52] LABS: BLOOD UREA NITROGEN 38 mg/dl (7-18); CALCIUM 8.9 mg/dl (8.5-10.1); CARBON DIOXIDE 40 mmol/L (21-32); CREATININE 1.63 mg/dl (0.60-1.40); GLUCOSE 95 mg/dl (70-99); POTASSIUM 3.1 mmol/L (3.5-5.1); SODIUM 137 mmol/L (136-145)
== END | disposition home or self-care (01) ==
LOC: C.LAB1850 12:48
PROVIDERS: ATTEND Physician Assistant
DX: I50.32 Chronic diastolic (congestive) heart failure (principal)

== ENCOUNTER → 2017-10-06 | Outpatient (CLI) | payer OTHER, MEDICARE ==
[~2017-10-06] MED LIST changes: +PRD/1 PO
[2017-10-06 17:40] LABS: BLOOD UREA NITROGEN 73 mg/dl (7-18); CALCIUM 8.9 mg/dl (8.5-10.1); CARBON DIOXIDE 31 mmol/L (21-32); CREATININE 3.49 mg/dl (0.60-1.40); GLUCOSE 95 mg/dl (70-99); POTASSIUM 3.8 mmol/L (3.5-5.1); SODIUM 134 mmol/L (136-145)
== END | disposition home or self-care (01) ==
LOC: C.LAB1850 15:53
PROVIDERS: ATTEND Physician Assistant
DX: I50.32 Chronic diastolic (congestive) heart failure (principal)

== ENCOUNTER → 2017-10-08 | Outpatient (CLI) | payer OTHER, MEDICARE ==
[~2017-10-08] MED LIST changes: -PRD/1 PO
[2017-10-08 16:22] LABS: BLOOD UREA NITROGEN 64 mg/dl (7-18); CALCIUM 9.2 mg/dl (8.5-10.1); CARBON DIOXIDE 32 mmol/L (21-32); CREATININE 2.34 mg/dl (0.60-1.40); GLUCOSE 94 mg/dl (70-99); POTASSIUM 3.9 mmol/L (3.5-5.1); SODIUM 136 mmol/L (136-145)
== END | disposition home or self-care (01) ==
LOC: C.LAB1850 14:53
PROVIDERS: ATTEND Physician Assistant
DX: I50.32 Chronic diastolic (congestive) heart failure (principal)

== ENCOUNTER → 2017-10-11 | Outpatient (CLI) | payer OTHER, MEDICARE ==
[2017-10-11 17:39] LABS: BLOOD UREA NITROGEN 38 mg/dl (7-18); CARBON DIOXIDE 30 mmol/L (21-32); CREATININE 1.47 mg/dl (0.60-1.40); GLUCOSE 98 mg/dl (70-99); POTASSIUM 3.5 mmol/L (3.5-5.1); SODIUM 138 mmol/L (136-145)
== END | disposition home or self-care (01) ==
LOC: C.LAB1850 16:48
PROVIDERS: ATTEND Physician Assistant
DX: I50.32 Chronic diastolic (congestive) heart failure (principal)

== ENCOUNTER → 2017-10-27 | Outpatient (CLI) | payer OTHER, MEDICARE ==
[~2017-10-27] MED LIST changes: -DXY100 PO; -ELQ25 PO; +PRD/1 PO; -ZRX5 PO
[2017-10-27 15:36] LABS: BLOOD UREA NITROGEN 35 mg/dl (7-18); CALCIUM 8.7 mg/dl (8.5-10.1); CARBON DIOXIDE 29 mmol/L (21-32); CREATININE 1.31 mg/dl (0.60-1.40); GLUCOSE 120 mg/dl (70-99); POTASSIUM 3.9 mmol/L (3.5-5.1); SODIUM 137 mmol/L (136-145)
== END | disposition home or self-care (01) ==
LOC: C.LAB1850 13:41
PROVIDERS: ATTEND Physician Assistant
DX: I50.32 Chronic diastolic (congestive) heart failure (principal)

== ENCOUNTER 2018-06-21 06:52 | Inpatient (IN) ==
[2018-06-21] MEDS ORDERED: LEVALBUTEROL HCL 1.25 MG/3 ML NEB NEB STA (07:16)
--- NOTE | 2018-06-21 07:17 | XRay Report ---
XR chest 1V portable CLINICAL HISTORY: weakness dyspnea COMPARISON STUDY: 09/14/2017 FINDINGS: Prior median sternotomy and valve replacement. Mild stable cardiomegaly. Prominence of pulm onary vasculature also considered chronic. IMPRESSION: Chronic and postoperative change. No acute process. The above report was generated using voice recognition software. It may contain grammatical, syntax or spelling errors. Electronically signed by: Camden Bundy M.D. 06/21/2018 7:16 AM
[2018-06-21] MEDS ORDERED: SODIUM CHLORIDE 0.9% 1000ML 500 ML IV ONE ×3 (07:18→07:56)
[2018-06-21] MEDS ORDERED: LEVALBUTEROL 1.25MG/0.5ML NEB ONE (07:40)
[2018-06-21] MEDS ORDERED: POTASSIUM CHLORIDE 20 MEQ TABCR PO STA (07:48)
[2018-06-21 07:50] LABS: Basophils # (auto) 0.01 K/uL (0-0.2); Basophils % (auto) 0.2 %; Eosinophils # (auto) 0.06 K/uL (0-0.5); Eosinophils % (auto) 1.1 %; Hematocrit (blood only) 46.3 % (42-52); Hemoglobin 15.8 g/dL (14.0-18.0); Immature Granulocytes # (auto) 0.01 K/uL (0.00-0.02); Immature Granulocytes % (auto) 0.2 %; Lymphocytes # (auto) 0.61 K/uL (1.2-3.4); Lymphocytes % (auto) 11.3 %; Mean Corpuscular Hgb Conc 34.1 g/dL (32-36); Mean Corpuscular Volume 92.6 fL (80-100); Mean Platelet Volume 10.8 fL (7.4-10.4); Monocytes # (auto) 0.49 K/uL (0.11-0.59); Monocytes % (auto) 9.1 %; Neutrophils # (auto) 4.21 K/uL (1.4-6.5); Neutrophils % (auto) 78.1 %; Platelet Count 159 K/uL (130-400); RDW Standard Deviation 63.4 fL (36.4-46.3); White Blood Count 5.39 K/uL (4.8-10.8)
[2018-06-21] MEDS ORDERED: LEVOFLOXACIN/D5W 750 MG/150 ML BAG IV STA (07:55)
[2018-06-21] MEDS ORDERED: VANCOMYCIN HCL 1,750 MG in SODIUM CHLORIDE 0.9% 500 ML IV ONE (07:55)
[2018-06-21] MEDS ORDERED: PIPERACILLIN/TAZOBACTAM 4.5 GM/120 ML BAG IV ONE (07:55)
[2018-06-21] MEDS ORDERED: PIPERACILL/TAZOBAC CONSULT ACTIVE PRN (07:55)
[2018-06-21] MEDS ORDERED: VANCOMYCIN CONSULT ACTIVE PRN (07:55)
[2018-06-21 08:00] LABS: iSTAT Hemoglobin 18.7 g/dl (14.0-18.0); iSTAT Ionized Calcium 0.92 mmol/l (1.12-1.32)
[2018-06-21] MEDS: POTASSIUM CHLORIDE / WTR 10 MEQ/100 ML PLCT IV SCH ×6 (08:10→23:30)
[2018-06-21 08:21] LABS: iSTAT Arterial Blood Gas HCO3 24 meg/L (19-24); iSTAT Carbon Dioxide 25 mEq/l (24-31)
[2018-06-21 08:22] LABS: Albumin Globulin Ratio 0.5 (0.9-2); Albumin Level 2.8 gm/dl (3.4-5.0); BUN Creatinine Ratio 24.5 (10-20); Calcium 8.6 mg/dl (8.5-10.1); Creatine Kinase MB 7.1 ng/ml (0.5-3.6); Creatinine Clr Calc Pharmacy 10.9 ml/min; Est GFR (African American) 10.8; Est GFR (Non-African American) 9.3; Globulin 5.4 gm/dl (2.5-4.0); Potassium 2.4 mmol/L (3.5-5.1); Total Protein 8.2 gm/dl (6.4-8.2); Troponin I 0.221 ng/ml (0-0.045)
[2018-06-21 09:03] LABS: Influenza A virus by PCR Neg for Influ A (Neg); Influenza B virus by PCR Neg for Influ B (Neg)
[2018-06-21] MEDS ORDERED: ICU PROTOCOL FOR HYPERGLYCEMIA PRN (10:06)
[2018-06-21 11:02] LABS: Calcium 7.6 mg/dl (8.5-10.1); Creatinine Clr Calc Pharmacy 12.3 ml/min; Est GFR (African American) 12.5; Est GFR (Non-African American) 10.8; Potassium 2.1 mmol/L (3.5-5.1); Troponin I 0.197 ng/ml (0-0.045)
--- NOTE | 2018-06-21 11:02 | History & Physical Report ---
Date of Service June 21, 2018 Assessment & Plan (1) Acute on chronic respiratory failure with hypoxia: (2) Chronic right-sided CHF (congestive heart failure): (3) Pulmonary HTN: -Admit to ICU -Patient presenting to the ED by referral of outpatient prepared foods team leader when outpatient labs demonstrated acute renal failure and profound hypokalemia -In the ED, patient was found to be hypoxic on his chronic 3 L as low as 76%; currently requiring BiPAP to maintain saturations ~ 90% -Likely multifactorial secondary to chronic right-sided CHF and severe pulmonary hypertension, possible volume overload from acute renal failure; no clear infiltrate noted on chest x-ray -Consider PE however unable to do CTA given renal failure, will check lower extremity Dopplers -Discussed with patient, wishes to be DNR and no intubation -Continue BiPAP and supportive care -Consider palliative care consult (4) JOVANNI (acute kidney injury): -Creatinine on presentation 5.3 -No acidosis, no role for urgent dialysis at this time -Gentle IVF given history of right-sided heart failure -Nephrology consult (5) Hypokalemia: -Potassium on presentation 2.4 -Replace, monitor potassium levels closely -Check magnesium (6) Leg ulcer: -Small ulcer noted to the medial aspect of the right lower leg - reports some intermittent yellow drainage over the past few weeks -Afebrile, no leukocytosis -S/P Vanco, Levaquin, Zosyn ED; will continue with Vanco and Zosyn for now -Blood cultures obtained in ED, check wound culture -Wound care consult (7) Elevated troponin: (8) CAD (coronary artery disease): -Appears stable, no reports chest pain -EKG demonstrates chronic bifascicular block -Initial troponin elevated at 0.221; likely secondary to hypoxia, demand ischemia, acute renal failure -Continue cycle cardiac enzymes, check resting echo -Continue aspirin, statin, beta-niru with holding parameters in place (9) DVT prophylaxis: -SQ heparin History of Present Illness Chief Complaint: Sent by cardiology for abnormal labs Primary Care Provider: Boris Perez 82-year-old male who was referred to the ED by his outpatient prepared foods team leader for evaluation of abnormal labs. Patient was evaluated in the cardiology clinic yesterday for evaluation of shortness of breath and weight gain. Patient reported this was a "routine visit" however review of outpatient documentation reports it was an acute appointment. At that visit, patient was found to be up 12 pounds from his prior clinic visit. It was also noted that he was taking his Lasix and metolazone inappropriately, taking Lasix only daily some days and metolazone only weekly and at the same time as Lasix. Patient has labs ordered yesterday which demonstrated creatinine 4.9 and potassium 2.1. He was advised to come to the ED at that time however he declined secondary to poor road conditions. In the ED today, patient was found to be hypoxic on his chronic 3 L at 78%. He is currently requiring BiPAP to maintain saturations ~ 90%. Patient actually offers no complaints currently. He feels as though he has been at his usual state of health recently. He reports chronic exertional shortness of breath which is unchanged from baseline. No chest pain or palpitations. He denies lightheadedness, dizziness, diaphoresis, syncopal events. He has had a poor appetite but denies nausea, vomiting, diarrhea. No fevers or chills. He denies any urinary symptoms. Patient is noted to have a small ulcer on the lower medial aspect of his right leg. reports this has been present for the past few weeks and has been occasionally oozing some yellow drainage. She has been putting ointment on the ulcer. Labs in the ED showed creatinine 5.3, potassium 2.1. Patient was given IVF, potassium replacement, IV Vanco, IV Zosyn, IV Levaquin. Allergies Allergy/AdvReac Type Severity Reaction Status Date / Time No Known Allergies Allergy Unverified 06/21/18 08:28 Home Medications Home Medications Medication Instructions Recorded Confirmed Type aspirin [Aspir-81] 81 mg PO DAILY 06/21/18 06/21/18 History atorvastatin 40 mg PO DAILY 06/21/18 06/21/18 History furosemide 80 mg PO BID 06/21/18 06/21/18 History magnesium oxide 400 mg PO DAILY 06/21/18 06/21/18 History metolazone 5 mg PO Q2D 06/21/18 06/21/18 History metoprolol succinate 25 mg PO DAILY 06/21/18 06/21/18 History potassium chloride 20 meq PO BID 06/21/18 06/21/18 History tamsulosin 0.4 mg PO DAILY 01/08/19 01/08/19 History Past Med/Surg History Medical History CAD (coronary artery disease) (Chronic) Pulmonary HTN (Chronic) CHF (congestive heart failure) (Chronic) Hypertension (Chronic) Dyslipidemia (Chronic) Chronic right-sided CHF (congestive heart failure) (Chronic) Pulmonary hypertension (Chronic) Cor pulmonale (Chronic) Aortic regurgitation (Chronic) CKD (chronic kidney disease), stage IV (Chronic) Surgical History S/P CABG x 4 (Resolved) History of nasal surgery (Resolved) Hx of tonsillectomy (Resolved) Status post mitral valve replacement (Resolved) "bioprosthetic MVR" Family History Other Family history non-contributory Social History Current Living Situation: Spouse current occupational status: retired Other Information That Helps Us Care for You: No Feels Safe at Home: Yes Safety Concerns: Feels Safe At This Time Smoking Status: Never smoker Hx Alcohol Use: Yes Alcohol type: wine Alcohol Intake Frequency: 0-2 drinks per day Hx Substance Use: No Beliefs That Will Affect Care: None Preferred Language: Ethiopian Communication Ability: Effective Review of Systems ROS per HPI, all other systems reviewed and negative Physical Exam 2 Vital Signs (Past 24 Hours): Last Vital Signs Temp 36.4 C L 06/21/18 07:16 Pulse 67 06/21/18 08:25 Resp 22 06/21/18 08:25 BP 101/62 06/21/18 08:25 Pulse Ox 92 06/21/18 08:25 Constitutional: WD/WN, vitals as above + ill appearing Resting in bed comfortably on BiPAP Eyes: PERRL, conjunctivae normal, anicteric sclerae Right periorbital ecchymosis ENMT: external ear and nose normal, oropharynx normal Respiratory: normal respiratory effort; no respiratory distress Auscultation: + wheezes (Faint, scattered, expiratory) Scattered coarse breath sounds Cardiovascular: Rate/Rhythm: regular rate and regular rhythm Vessels: + abnormal peripheral pulses (Very diminished pedal pulses) Gastrointestinal (Abdomen): normal bowel sounds, soft, nontender, no hepatosplenomegaly Musculoskeletal: Extremities: + cyanosis (Noted to the nailbeds and earlobes) ; no clubbing Skin: no rashes, warm and dry Dark purple/chronic vascular changes noted to bilateral lower extremities Small ulcer noted to the medial aspect of the left lower leg -no significant drainage noted Neurologic: PERRL, EOMI, accommodation nl, no face palsy, no dysarthria Psychiatric: A+Ox3, euthymic affect Results & Data Laboratory Results Laboratory Last Values WBC 5.39 K/uL (4.8-10.8) 06/21/18 07:35 RBC 5.00 M/uL (4.7-6.1) 06/21/18 07:35 Hgb 15.8 g/dL (14.0-18.0) 06/21/18 07:35 POC Hgb 18.7 g/dl (14.0-18.0) H 06/21/18 07:46 Hct 46.3 % (42-52) 06/21/18 07:35 POC Hct 55 % (42-52) H 06/21/18 07:46 MCV 92.6 fL (80-100) 06/21/18 07:35 MCH 31.6 pg (25-34) 06/21/18 07:35 MCHC 34.1 g/dL (32-36) 06/21/18 07:35 RDW Std Deviation 63.4 fL (36.4-46.3) H 06/21/18 07:35 RDW Coeff of Marie 19.0 % (11.5-14.5) H 06/21/18 07:35 Plt Count 159 K/uL (130-400) 06/21/18 07:35 MPV 10.8 fL (7.4-10.4) H 06/21/18 07:35 Immature Gran % (Auto) 0.2 % 06/21/18 07:35 Neut % (Auto) 78.1 % 06/21/18 07:35 Lymph % (Auto) 11.3 % 06/21/18 07:35 [place] % (Auto) 9.1 % 06/21/18 07:35 Eos % (Auto) 1.1 % 06/21/18 07:35 Baso % (Auto) 0.2 % 06/21/18 07:35 Immature Gran # (Auto) 0.01 K/uL (0.00-0.02) 06/21/18 07:35 Neut # (Auto) 4.21 K/uL (1.4-6.5) 06/21/18 07:35 Lymph # (Auto) 0.61 K/uL (1.2-3.4) L 06/21/18 07:35 [place] # (Auto) 0.49 K/uL (0.11-0.59) 06/21/18 07:35 Eos # (Auto) 0.06 K/uL (0-0.5) 06/21/18 07:35 Baso # (Auto) 0.01 K/uL (0-0.2) 06/21/18 07:35 POC pH 7.47 (7.35-7.45) H 06/21/18 08:08 POC pCO2 33 mmHg (35-46) L 06/21/18 08:08 POC pO2 54 mmHg (80-95) L 06/21/18 08:08 POC HCO3 24 jerod/L (19-24) 06/21/18 08:08 POC Total CO2 25 mEq/l (24-31) 06/21/18 08:08 POC Base Excess 1.0 jerod/L (-9-1.8) 06/21/18 08:08 POC ABG O2 Sat 90.0 % (90-95) 06/21/18 08:08 POC Sodium 132 mEq/L (135-144) L 06/21/18 07:46 Sodium 130 mmol/L (136-145) L 06/21/18 10:15 POC Potassium 2.3 mEq/L (3.3-5.0) L* 06/21/18 07:46 Potassium 2.1 mmol/L (3.5-5.1) L* 06/21/18 10:15 POC Chloride 86 mEq/L (101-112) L 06/21/18 07:46 Chloride 91 mmol/L (98-107) L 06/21/18 10:15 Carbon Dioxide 25 mmol/L (21-32) 06/21/18 10:15 POC Total CO2 28 mEq/l (24-31) 06/21/18 07:46 Anion Gap 14.0 (3-11) H 06/21/18 10:15 POC Anion Gap 20.0 mmol/L (16-25) 06/21/18 07:46 POC BUN 101 mg/dl (7-18) H* 06/21/18 07:46 BUN 122 mg/dl (7-18) H 06/21/18 10:15 Creatinine 4.70 mg/dl (0.6-1.4) H* D 06/21/18 10:15 POC Creatinine 5.3 mg/dl (0.6-1.3) H* 06/21/18 07:46 Est Cr Clr Drug Dosing 12.3 ml/min 06/21/18 10:15 Est GFR ( Amer) 12.5 06/21/18 10:15 Est GFR (Non-Af Amer) 10.8 06/21/18 10:15 BUN/Creatinine Ratio 26.0 (10-20) H 06/21/18 10:15 Glucose 107 mg/dl (70-99) H 06/21/18 10:15 POC Glucose (other) 96 mg/dl (70-99) 06/21/18 07:46 Calcium 7.6 mg/dl (8.5-10.1) L 06/21/18 10:15 POC Ioniz Calcium Rosaura 0.92 mmol/l (1.12-1.32) L 06/21/18 07:46 Magnesium 4.0 mg/dl (1.8-2.4) H 06/21/18 10:15 Total Bilirubin 4.0 mg/dl (0.2-1) H 06/21/18 07:35 AST 33 U/L (15-37) 06/21/18 07:35 ALT 16 U/L (12-78) 06/21/18 07:35 Alkaline Phosphatase 184 U/L (45-117) H 06/21/18 07:35 Total Creatine Kinase 329 U/L (39-308) H 06/21/18 07:35 CK-MB (CK-2) 7.1 ng/ml (0.5-3.6) H 06/21/18 07:35 CK/CKMB % Calc 2.2 (0-3.0) 06/21/18 07:35 Troponin I 0.197 ng/ml (0-0.045) H* 06/21/18 10:15 NT-Pro-B Natriuret Pep 7537 pg/ml (0-1800) H 06/21/18 08:08 Total Protein 8.2 gm/dl (6.4-8.2) 06/21/18 07:35 Albumin 2.8 gm/dl (3.4-5.0) L 06/21/18 07:35 Globulin 5.4 gm/dl (2.5-4.0) H 06/21/18 07:35 Albumin/Globulin Ratio 0.5 (0.9-2) L 06/21/18 07:35 TSH 7.240 uIu/ml (0.300-4.500) H 06/21/18 07:35 Nasal Screen MRSA (PCR) Positive (Negative) A 06/21/18 Unknown Influenza Type A (PCR) Neg for Influ A (Neg) 06/21/18 08:20 Influenza Type B (PCR) Neg for Influ B (Neg) 06/21/18 08:20 Diagnostic Findings CXR IMPRESSION: Chronic and postoperative change. No acute process. Code Status & VTE Plan Code Status Patient is a DNR as per my discussion with him. VTE Prophylaxis Plan VTE Prophylaxis will be ordered: Yes Supervising Physician Co-Signing Physician Notes Patient is an 82 yr male with H/O CAD, Diastolic CHF, Cor pulmonale, CKD and other problems presents for evaluation on recommendation from Outpatient Corporate Physical Security Supervisor for abnormal Labs. He reports worsening dyspnea and weight gain. He was found to be hypoxic, hypotensive, Acute renal failure, hypokalemic, Volume overload status while in ED. He received IV fluids and placed on BiPAP in ED. ? Compliance with diet, diuretics over the holidays. Very poor appetite per family. Patient prefers to be DNI/DNR. Patient was transferred to ICU for further management. On Exam patient is on BiPAP and still able to continue conversation, cyanosis noted, moderately built, NC, R orbital Echymosis, Lungs: B/L air entry, decreased breath sounds at bases, scattered crackles, JVP, S1, S2, + Murmur, Vertical well healed scar on chest, B/L significant LE edema, chronic venous stasis changes, + small wound on LE. Patient is thought to have acute respiratory failure secondary to diastolic CHF exacerbation, Volume overload status. Need to rule out Obstructive Uropathy for ARF. Also noted to have moderate aortic stenosis and TR. Patient is started on IV norepinephrine and dobutamine in ICU. Mild Troponin elevation is likely secondary to demand Ischemia. No wall motion abnormality on ECHO. Patient needs close hemodynamic monitoring. Appreciate Guinea Pig Breeder help. Prognosis is poor. May need dialysis for correction of volume stasis if hemodynamically patient tolerates. Further management per ICU team.
[2018-06-21] MEDS ORDERED: LIDOCAINE HCL 2% JELLY 30ML TUBE EXT PRN (11:12)
[2018-06-21] MEDS ORDERED: LIDOCAINE VISCOUS 2% 100ML SCH (11:15)
[2018-06-21] MEDS ORDERED: LIDOCAINE 2% JELLY 5 ML TUBE EXT PRN (11:30)
[2018-06-21] MEDS: NOREPINEPHRINE BIT INJ 8 MG in DEXTROSE 5% 500 ML IV SCH (12:23)
[2018-06-21] MEDS: DOBUTamine / D5W 500 MG/250 ML BAG IV SCH (13:32)
[2018-06-21] MEDS ORDERED: LIDOCAINE HCL 2% (LOCAL) INJ 50 ML VIAL ONE (13:54)
--- NOTE | 2018-06-21 14:55 | Ultrasound Report ---
BILATERAL LOWER EXTREMITY VENOUS DOPPLER HISTORY: Bilateral lower extremity edema COMPARISON STUDY: None. FINDINGS: There is normal compressibility, flow, and augmentation within the bilateral lower extremit y deep venous systems. IMPRESSION: No DVT within the right or left lower extremity. Electronically signed by: Alphonso Sawant M.D. 06/21/2018 2:54 PM
--- NOTE | 2018-06-21 15:10 | Cardiology Consultation ---
Date of Consultation June 21, 2018 Assessment & Plan (1) Chronic right-sided CHF (congestive heart failure): Clearly, the patient is volume overloaded, however, we are unable to use diuretics at this time due to the patient's hypotension. (2) Hypotension: Currently on intravenous norepinephrine and dobutamine to support his blood pressure. Prognosis is poor. (3) Elevated troponin: Suspect the mildly elevated troponin is secondary to his acute decompensation. Doubt this represents myocardial ischemia. (4) CAD (coronary artery disease): The patient had a 4 vessel bypass procedure performed in August 2009. Has been quiescent on his outpatient medications. (5) Status post mitral valve replacement: Status post bioprosthetic mitral valve replacement in August 2009. Functions seems adequate on his current echocardiogram. History of Present Illness Attending Physician: Ash Crawley MD History of Present Illness Mr. Leonard is an 82-year-old male admitted earlier today with hypoxia, acute renal failure, and hypotension. This consultations were to assistance cardiac management. Of note, the patient typically follows with Dr. Rivas in the outpatient setting. The patient's recent history began just prior to the . He became noncompliant with his diet, daily weights, and sliding-scale diuretics. He was seen by Nicolle Fraser PA-C yesterday and was noted to have a 12 pound weight gain since his prior office visit. He had laboratories drawn after that appointment and was cold when it was noted his creatinine was up to 4.9, and his potassium down to 2.1. He was advised to go to the emergency room, however , he did not due to the weather conditions. Opted to present to the emergency room today. On arrival here, the patient was hypoxic with saturations in the mid 70s despite 3 liters of oxygen per nasal cannula. He also demonstrated a systolic blood pressure in the 70 range. He was admitted to the intensive care unit and placed on intravenous norepinephrine and dobutamine. The patient has been refusing a Andrews catheter and all other attempts to care for him. The patient has a longstanding history of coronary artery disease having undergone a 4 vessel bypass in August 2009 along with a bioprosthetic mitral valve replacement. The patient also carries a history of cor pulmonale with severe right ventricular dilatation and dysfunction. He has not had any recent angina pectoris, syncope, or presyncope. Currently, though she is resting comfortably bed and without complaints. Past medical history 1. Coronary artery disease 2. CABG x4-August 2009 3. Bioprosthetic mitral valve replacement-August 2009 4. Chronic diastolic CHF 5. Cor pulmonale 6. Pulmonary hypertension 7. Hypertension 8. Hypercholesterolemia 9. Chronic renal failure Social history and lives with his No tobacco Occasional alcohol Family history Mother at 78 from CHF Father at 57 from liver disease No early coronary artery disease Review of systems A 10 point review of systems was negative except for that described above. Allergies Allergy/AdvReac Type Severity Reaction Status Date / Time No Known Allergies Allergy Unverified 06/21/18 08:28 Home Medications Home Medications Medication Instructions Recorded Confirmed Type aspirin [Aspir-81] 81 mg PO DAILY 06/21/18 06/21/18 History atorvastatin 40 mg PO DAILY 06/21/18 06/21/18 History furosemide 80 mg PO BID 06/21/18 06/21/18 History magnesium oxide 400 mg PO DAILY 06/21/18 06/21/18 History metolazone 5 mg PO Q2D 06/21/18 06/21/18 History metoprolol succinate 25 mg PO DAILY 06/21/18 06/21/18 History potassium chloride 20 meq PO BID 06/21/18 06/21/18 History tamsulosin 0.4 mg PO DAILY 06/21/18 06/21/18 History Patient History Medical History CAD (coronary artery disease) (Chronic) Pulmonary HTN (Chronic) CHF (congestive heart failure) (Chronic) Hypertension (Chronic) Dyslipidemia (Chronic) Chronic right-sided CHF (congestive heart failure) (Chronic) Pulmonary hypertension (Chronic) Cor pulmonale (Chronic) Aortic regurgitation (Chronic) CKD (chronic kidney disease), stage IV (Chronic) Surgical History S/P CABG x 4 (Resolved) History of nasal surgery (Resolved) Hx of tonsillectomy (Resolved) Status post mitral valve replacement (Resolved) "bioprosthetic MVR" Family History Other Family history non-contributory Social History Current Living Situation: Spouse current occupational status: retired Other Information That Helps Us Care for You: No Feels Safe at Home: Yes Safety Concerns: Feels Safe At This Time Smoking Status: Never smoker Hx Alcohol Use: Yes Alcohol type: wine Alcohol Intake Frequency: 0-2 drinks per day Hx Substance Use: No Beliefs That Will Affect Care: None Preferred Language: Yakut Communication Ability: Effective Physical Exam 2 Vital Signs (Past 24 Hours): Last Vital Signs Temp 36.6 C 06/21/18 09:43 Pulse 73 06/21/18 14:45 Resp 16 06/21/18 14:45 BP 90/50 L 06/21/18 14:45 Pulse Ox 94 06/21/18 14:45 Physical Exam: In general is well-developed well-nourished white male lying supine in bed without complaints. HEENT exam notes an ecchymosis of the right orbit. Neck is supple with full carotid upstrokes. No obvious bruits. Jugular venous pressure is to the angle of the jaw. Cardiovascular exam reveals a regular rhythm with a 2/6 systolic murmur heard along the left sternal border. An S3 gallop is also noted. Lungs no decreased breath sounds at the bases, but no rales, rhonchi, or wheezes. Abdomen is obese without bruits. Extremities note pitting edema to the thighs bilaterally. Radial artery pulses are intact. Results & Data Laboratory Results CBC notes a hemoglobin of 15.8, hematocrit of 46.3, white count 5.3, and platelet count of 780881. Electrolytes notice sodium of 130, potassium 2.1, chloride 91, bicarb 25, BUN 122, with creatinine 4.7, and a glucose of 107. Initial troponin was 0.2-1 with a follow-up thallium 0.197. BNP is elevated 7537. Diagnostic Findings EKG notes sinus rhythm first-degree AV block, a right bundle-branch block, and left axis deviation. There are inferolateral T-wave changes. Lower extremity ultrasound failed to show venous thrombosis. Chest x-ray notes cardiomegaly and postoperative changes. Echocardiogram notes low-normal systolic function with an ejection fraction of 50-55 percent. There is severe right ventricular dilatation along with moderate aortic stenosis and a bioprosthetic mitral valve replacement.
--- NOTE | 2018-06-21 16:53 | Urology Consultation ---
Date of Consultation June 21, 2018 Assessment & Plan (1) Phimosis: Dense phimosis has been the limiting element to catheter placement - I attempted to simply dilate this with a hemostat - but was unsuccessful - I placed a circumferential ring block with 2% lidocaine at the base of the penis - I then used two hemostats to elevated the foreskin and stretch it to accomodate a catheter - he had some splitting of the foreskin and mild bleeding A 16F solomon catheter was then guided into the meatus and bladder - he had a return of only a small amount of urine - he tolerated the procedure well and was comfortable after the procedure JOVANNI: given hypotension and current renal status, I anticipate relatively low UoP - consideration of dialysis now - if worsening function or minimal output - bladder scan to confirm solomon position and empty bladder History of Present Illness Attending Physician: Ash Crawley MD Called to the ICU secondary to difficult Solomon placement in an acute patient He reports that he has had numerous challenging catheter placements over the past year No successful catheters have actually been placed He reports an effort in the emergency room as well as 2 efforts after admission He reports long-standing voiding dysfunction, worse over the past several weeks Limited urine output He is now admitted with CHF exacerbation, significant hypotension, acute renal failure Bladder scan immediately prior to me arriving in the ICU was 0 Solomon catheter is been requested secondary to his acute health issues and management of urine output/renal function Allergies Allergy/AdvReac Type Severity Reaction Status Date / Time No Known Allergies Allergy Unverified 06/21/18 08:28 Home Medications Home Medications Medication Instructions Recorded Confirmed Type aspirin [Aspir-81] 81 mg PO DAILY 06/21/18 06/21/18 History atorvastatin 40 mg PO DAILY 06/21/18 06/21/18 History furosemide 80 mg PO BID 06/21/18 06/21/18 History magnesium oxide 400 mg PO DAILY 06/21/18 06/21/18 History metolazone 5 mg PO Q2D 06/21/18 06/21/18 History metoprolol succinate 25 mg PO DAILY 06/21/18 06/21/18 History potassium chloride 20 meq PO BID 06/21/18 06/21/18 History tamsulosin 0.4 mg PO DAILY 06/21/18 06/21/18 History Patient History Medical History CAD (coronary artery disease) (Chronic) Pulmonary HTN (Chronic) CHF (congestive heart failure) (Chronic) Hypertension (Chronic) Dyslipidemia (Chronic) Chronic right-sided CHF (congestive heart failure) (Chronic) Pulmonary hypertension (Chronic) Cor pulmonale (Chronic) Aortic regurgitation (Chronic) CKD (chronic kidney disease), stage IV (Chronic) Surgical History S/P CABG x 4 (Resolved) History of nasal surgery (Resolved) Hx of tonsillectomy (Resolved) Status post mitral valve replacement (Resolved) "bioprosthetic MVR" Family History Other Family history non-contributory Social History Current Living Situation: Spouse current occupational status: retired Other Information That Helps Us Care for You: No Feels Safe at Home: Yes Safety Concerns: Feels Safe At This Time Smoking Status: Never smoker Hx Alcohol Use: Yes Alcohol type: wine Alcohol Intake Frequency: 0-2 drinks per day Hx Substance Use: No Beliefs That Will Affect Care: None Preferred Language: Polish Communication Ability: Effective Physical Exam 2 Vital Signs (Past 24 Hours): Last Vital Signs Temp 36.6 C 06/21/18 09:43 Pulse 79 06/21/18 16:26 Resp 15 06/21/18 16:26 BP 74/44 L 06/21/18 16:26 Pulse Ox 95 06/21/18 16:26 Physical Exam: Mild distress Nasal cannula supplemented oxygen in place Appropriately interactive, seems to be well oriented Abdomen soft, no flank pain, no suprapubic tenderness Some labored breathing despite oxygen Regular rate and rhythm Mild edema of the lower extremities Uncircumcised-severe, dense phimosis Constitutional: + thin; no acute distress
--- NOTE | 2018-06-21 16:55 | Nephrology Consultation ---
Date of Consultation June 21, 2018 History of Present Illness Reason for Consultation: acute on chronic renal failure, electrolyte disorders Requesting Physician: Dr Crawley Attending Physician: Ash Crawley MD History of Present Illness 82 y/o M whom I'm asked to see for JOVANNI on CKD after admission to ICU w/ hypotension and repiratory failure. His baseline creatinine as of 02/2018 was 1.8 on [facility] labs. I saw him in CKD clinic once or 2X in 2016 but not since. PMH includes CKD3, chronic respiratory failure on 3-4L 02NC 04/01, chronic diastolic and R heart failure, multi vessel CAD s/p 4V CABG and bioprosthetic mitral valve. He called [facility] cardiology clinic for acute visit yesterday d/t worsening breathing and what proved to be a 12lb wt gain. Labs were drawn which showed creatinine 4.9, K 2.1. He was called and advised to go to ER but deferred this d/t bad weather and came this AM instead to ER for eval where on presentation he was cyanotic with 02 sats in the 70s on 3-4L NC (improved to 85- 90% on bipap 100%) w/ sbp in 70s. His presenting creat was 5.3 w/ K 2.4. he was brought to the ICU. Multiple attempts to place solomon were not successfuly - urology had to be consulted and small procedure done to get this; minimal UOP. He is DNR in the chart. he , w/ basleine creatinine 1.3 in [facility] as of 2016. Pt had urethral phimosis and needed urological assistance and small procedure for solomon placmeent Allergies Allergy/AdvReac Type Severity Reaction Status Date / Time No Known Allergies Allergy Unverified 06/21/18 08:28 Home Medications Home Medications Medication Instructions Recorded Confirmed Type aspirin [Aspir-81] 81 mg PO DAILY 06/21/18 06/21/18 History atorvastatin 40 mg PO DAILY 06/21/18 06/21/18 History furosemide 80 mg PO BID 06/21/18 06/21/18 History magnesium oxide 400 mg PO DAILY 06/21/18 06/21/18 History metolazone 5 mg PO Q2D 06/21/18 06/21/18 History metoprolol succinate 25 mg PO DAILY 06/21/18 06/21/18 History potassium chloride 20 meq PO BID 06/21/18 06/21/18 History tamsulosin 0.4 mg PO DAILY 06/21/18 06/21/18 History Patient History Medical History CAD (coronary artery disease) (Chronic) Pulmonary HTN (Chronic) CHF (congestive heart failure) (Chronic) Hypertension (Chronic) Dyslipidemia (Chronic) Chronic right-sided CHF (congestive heart failure) (Chronic) Pulmonary hypertension (Chronic) Cor pulmonale (Chronic) Aortic regurgitation (Chronic) CKD (chronic kidney disease), stage IV (Chronic) Surgical History S/P CABG x 4 (Resolved) History of nasal surgery (Resolved) Hx of tonsillectomy (Resolved) Status post mitral valve replacement (Resolved) "bioprosthetic MVR" Family History Other Family history non-contributory Social History Current Living Situation: Spouse current occupational status: retired Other Information That Helps Us Care for You: No Feels Safe at Home: Yes Safety Concerns: Feels Safe At This Time Smoking Status: Never smoker Hx Alcohol Use: Yes Alcohol type: wine Alcohol Intake Frequency: 0-2 drinks per day Hx Substance Use: No Beliefs That Will Affect Care: None Preferred Language: Nepalese Communication Ability: Effective Physical Exam 2 Vital Signs (Past 24 Hours): Last Vital Signs Temp 36.6 C 06/21/18 09:43 Pulse 79 06/21/18 16:26 Resp 15 06/21/18 16:26 BP 74/44 L 06/21/18 16:26 Pulse Ox 95 06/21/18 16:26
--- NOTE | 2018-06-21 17:01 | Critical Care Consultation ---
Date of Consultation June 21, 2018 Assessment & Plan (1) Hypotension: Impression: 1. Cardiogenic shock secondary to severe pulmonary hypertension and dilated RV. 2. Non-ST elevation DC, likely secondary to above. 3. Acute on chronic kidney insufficiency, ischemic due to poor forward flow and poor cardiac output. 4. Hypoxia, which could be contributing to his symptoms, no evidence of PFO at the moment, pulmonary hypertension is the cause of it. 5. Severe cor pulmonale. 6. Coronary artery disease status post CABG in 2009. 7. Phimosis. Plan: 1. Long discussion took place with the patient and the family on multiple occasions, the patient apparently was noncompliant with his medications according to the son-in-law, the although in favor of aggressive treatment the patient himself wants to continue to be DNR and DNI, he is hesitant about placing any catheter including PA catheter, central line, A-line, urethral catheter as well. 2. Appreciate urology consult, Andrews catheter was placed, it was difficult. 3. Appreciate renal consult, the patient is a candidate for dialysis if he is agreeable. 4. Appreciate cardiology consult, poor prognosis and the patient will continue with the current medication. 5. I will start the patient on dobutamine 5 mics per KG per minute fixed dose. 6. I will start the patient on norepinephrine for blood pressure support. 7. Continue with alternating OptiFlow and BiPAP. 8. Obtain palliative care consult. 9. The patient is still not sure about further care, better guidance to the patient will be very helpful in that regard. 10. Continue with prophylaxis. 11. ICU core measures has been met. 12. Replacement of the potassium. Case discussed with the staff, multiple principles, appreciate their input, critical care time spent with the patient including family talks was 60 minutes. History of Present Illness Reason for Consultation: Hypertension. Acute respiratory failure. Requesting Physician: Dr. De La Rosa. Attending Physician: Ash Crawley MD History of Present Illness Dear Dr. Lambert: Thank you for the kind referral Mr. Hopkins to critical care service. This is 82 -year-old gentleman known to me from the past with history of congestive heart failure, has been followed at [facility] in [place] in the past, coronary artery disease status post CABG, has been admitted to the hospital in the past also with similar presentation, patient presented with increased swelling in his knees and inability to walk according to him, shortness of breath, no chest pain was reported. Recently the patient sustained a fall with right orbital hematoma noted. The patient denies any cough no sputum production , and the patient in the ED was found to have hypotension with a blood pressure of 70 systolic, his O2 saturation was difficult to measure and he was placed on 100% on the BiPAP. His O2 sat was barely 91%. The patient has urethral deformity where a Andrews catheter was difficult to obtain. Urology was consulted in that regard. When I interviewed the patient, long discussion took place with him over 45 minutes with his and his son-in-law as well as his daughter, the patient was undecided regarding the aggressiveness of treatment, I do believe which I explained to the patient, that he would need an aggressive treatment which should include placement of PA catheter, placement of Andrews catheter, treatment with pressors and inotropic, and evaluation for the possibility of hemodialysis. Further discussion took place also with the family and the patient apparently has made it and stated that he is DNR and DNI as well. He did not want aggressive measures at the moment but he is reluctant on further procedures however he allowed the placement of Andrews catheter by urology. Patient is very opinionated about his care as of known him even from the past. Past medical history as above, patient is non-smoker lifetime, family history does not contribute to his current illness, he lives with his . Review of system was limited due to the patient overall condition, and denial of his symptoms. In discussion with the son-in-law, apparently the patient was prescribed cardiac medications including Lasix and others, and he has not been compliant with it. An echocardiogram was done at the bedside, which showed severely dilated RV, the patient has severe pulmonary hypertension, and the EF was maintained at 45- 50%. Allergies Allergy/AdvReac Type Severity Reaction Status Date / Time No Known Allergies Allergy Unverified 06/21/18 08:28 Home Medications Home Medications Medication Instructions Recorded Confirmed Type aspirin [Aspir-81] 81 mg PO DAILY 06/21/18 06/21/18 History atorvastatin 40 mg PO DAILY 06/21/18 06/21/18 History furosemide 80 mg PO BID 06/21/18 06/21/18 History magnesium oxide 400 mg PO DAILY 06/21/18 06/21/18 History metolazone 5 mg PO Q2D 06/21/18 06/21/18 History metoprolol succinate 25 mg PO DAILY 06/21/18 06/21/18 History potassium chloride 20 meq PO BID 06/21/18 06/21/18 History tamsulosin 0.4 mg PO DAILY 06/21/18 06/21/18 History Patient History Medical History CAD (coronary artery disease) (Chronic) Pulmonary HTN (Chronic) CHF (congestive heart failure) (Chronic) Hypertension (Chronic) Dyslipidemia (Chronic) Chronic right-sided CHF (congestive heart failure) (Chronic) Pulmonary hypertension (Chronic) Cor pulmonale (Chronic) Aortic regurgitation (Chronic) CKD (chronic kidney disease), stage IV (Chronic) Surgical History S/P CABG x 4 (Resolved) History of nasal surgery (Resolved) Hx of tonsillectomy (Resolved) Status post mitral valve replacement (Resolved) "bioprosthetic MVR" Family History Other Family history non-contributory Social History Current Living Situation: Spouse current occupational status: retired Other Information That Helps Us Care for You: No Feels Safe at Home: Yes Safety Concerns: Feels Safe At This Time Smoking Status: Never smoker Hx Alcohol Use: Yes Alcohol type: wine Alcohol Intake Frequency: 0-2 drinks per day Hx Substance Use: No Beliefs That Will Affect Care: None Preferred Language: Slovak Communication Ability: Effective Physical Exam 2 Vital Signs (Past 24 Hours): Last Vital Signs Temp 36.6 C 06/21/18 09:43 Pulse 79 06/21/18 16:26 Resp 15 06/21/18 16:26 BP 74/44 L 06/21/18 16:26 Pulse Ox 95 06/21/18 16:26 Physical Exam: Physical exam reveals blood pressure is on the low side, he is 80/54, heart rate is 94. Respiratory rate is 20, O2 saturation is difficult to measure. Positive JVP, right periorbital hematoma, heart examination S1-S2 regular rate and rhythm, lungs are crackles bilaterally, abdomen is benign, edema in the periphery 2+. Neurologically he is nonfocal, competent to make a decision and following commands. Results & Data Laboratory Results Labs were reviewed which showed hematocrit of 46, platelets are stable, ABG was 7.47, 33, 54, 24 and 90% on 100%. The patient potassium is 2.1 repleted, bicarb of 25 and BUN creatinine has gone up to 101 and 4.7. Elevated bilirubin as well. Troponin is positive given his renal function. Diagnostic Findings Chest x-ray with cardiomegaly, pulmonary vascular congestion, no pleural effusion or infiltrate. Echocardiogram showed EF of 50% but severely dilated RV and pulmonary hypertension which is known from before.
[2018-06-21 17:11] LABS: Appearance Urine Turbid (Clear); Bacteria Urine Automated Negative (Negative); Color Urine Orange; Glucose Urine UA Negative (Negative); Ketones Urine Negative (Negative); Leukocyte Esterase Urine 3+ (Negative); Nitrite Urine Positive (Negative); Protein Urine 2+ (Negative); Specific Gravity Urine 1.021 (1.000-1.030); Urobilinogen Urine Negative (Negative); WBC Urine Automated >30 /hpf (0-5)
[2018-06-21 17:23] LABS: Bilirubin Urine Negative (Negative); Ictotest Urine Negative (Negative)
[2018-06-21 17:33] LABS: Cast Urine Automated 0 /lpf (0-5)
--- NOTE | 2018-06-21 19:30 | Nephrology Consultation ---
Date of Consultation June 21, 2018 Assessment & Plan (1) Hypokalemia: goal is K of 4 >> ? 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: -grim prognosis with multiorgan failure and pressor dependent shock, volume overload, critical electrolyte disorders, oligoanuria -would not offer dialysis unless he changes to full code; even then not clear to me that we can stabilize him clinically -serial bmp 2000 and in am -continue efforts to keep MAP > 60 -solomon is in w/ slow drainage -- oligoanuria likely secondary to prostatism and primarily to severe renal failure -replete K and Ca -- ordered Ca gluconate one gram; ordered 2030 labs Present on Admission?: Yes (3) Acute on chronic respiratory failure with hypoxia: per critical care; at this point, short of intubation, his care will move between high flow 02 and bipap; blood gas w/ severe hypoxia Present on Admission?: Yes (4) Acute on chronic right heart failure: needs aggressive diuresis but too sick to tolerate w/ current hemodynamics -cont dobutamine; follow status Present on Admission?: Yes History of Present Illness Reason for Consultation: low K, JOVANNI Requesting Physician: Dr Crawley Attending Physician: Ash Crawley MD History of Present Illness 82 y/o critically ill M whom I'm asked to see for low K and acute on chronic renal failure. PMH includes systolic and diastolic HF, CAD s/p 4V CABG, s/p bioprosthetic MVR, CKD3, severe chronic respiratory failure on 3-4L 02NC RTC. I have seen him in the past in CKD clinic but not since 2016. His most recent OP creatinine is 1.8, from february as documented in [facility] cardiology clinic visit. He had an acute visit to cardiology clinic yesterday for worsening dypsnea and what proved to be a 12 lb wt gain; creatinine was 4.9 and K 2.1 per report. he fell at home in the past week and endorses dietary indiscretions w/ holiday; admits to me he'd been feeling poorly at times for past few weeks but worse since weekend. After labs yesterday posted, he was advised to go to ER but deferred doing this until this am d/t inclement weather. He arrived in ER today w/ sats in 70s on 3-4L NC, sbp 60-70s, cyanosis, and found to have creatinine 5.3, K 2.3. He was placed on bipap and broughto to icu. He had 500 mL bolus of NS in ER along with 40 mEq K po and 20 mEq IV K x 1; he was started on dobutamine and levophed. urology ultimately passed a solomon after bedside maneuvers through dense phimosis. critical care and cardiology are following. pt has had multiple prolonged discussions today about goals of care/ code status > prefers at this point DNR/DNI. he is getting now another 20 mEq IV K, to be completed just before 1999. Allergies Allergy/AdvReac Type Severity Reaction Status Date / Time No Known Allergies Allergy Unverified 06/21/18 08:28 Home Medications Home Medications Medication Instructions Recorded Confirmed Type aspirin [Aspir-81] 81 mg PO DAILY 06/21/18 06/21/18 History atorvastatin 40 mg PO DAILY 06/21/18 06/21/18 History furosemide 80 mg PO BID 06/21/18 06/21/18 History magnesium oxide 400 mg PO DAILY 06/21/18 06/21/18 History metolazone 5 mg PO Q2D 06/21/18 06/21/18 History metoprolol succinate 25 mg PO DAILY 06/21/18 06/21/18 History potassium chloride 20 meq PO BID 06/21/18 06/21/18 History tamsulosin 0.4 mg PO DAILY 06/21/18 06/21/18 History Patient History Medical History CAD (coronary artery disease) (Chronic) Pulmonary HTN (Chronic) CHF (congestive heart failure) (Chronic) Hypertension (Chronic) Dyslipidemia (Chronic) Chronic right-sided CHF (congestive heart failure) (Chronic) Pulmonary hypertension (Chronic) Cor pulmonale (Chronic) Aortic regurgitation (Chronic) CKD (chronic kidney disease), stage IV (Chronic) Surgical History S/P CABG x 4 (Resolved) History of nasal surgery (Resolved) Hx of tonsillectomy (Resolved) Status post mitral valve replacement (Resolved) "bioprosthetic MVR" Family History Other Family history non-contributory Social History Current Living Situation: Spouse current occupational status: retired Other Information That Helps Us Care for You: No Feels Safe at Home: Yes Safety Concerns: Feels Safe At This Time Smoking Status: Never smoker Hx Alcohol Use: Yes Alcohol type: wine Alcohol Intake Frequency: 0-2 drinks per day Hx Substance Use: No Beliefs That Will Affect Care: None Preferred Language: Greenlandic Communication Ability: Effective Review of Systems Constitutional: + fatigue, + weakness and + weight gain Eyes: no worsening vision Ear, Nose, Mouth, Throat: + dry mouth Respiratory: as per Subjective / HPI currently no sob or cough Cardiovascular: + edema; no chest pain, no palpitations and no lightheadedness Gastrointestinal: no abdominal pain, no nausea, no vomiting and no diarrhea/ loose stools denies changes in chronic voiding habits; denies problems w/ urinary stream Musculoskeletal: + joint pain (R hip at times at home prior to admisison and to fall) Integumentary: no rash and no non-healing lesions Neurologic: + gait abnormality and + generalized weakness; no dizziness and no headache(s) Psychiatric: + difficulty concentrating; no depression Endocrine: + fatigue and + polyphagia Hematologic / Lymphatic: no easy bleeding Physical Exam 2 Vital Signs (Past 24 Hours): Last Vital Signs Temp 36.1 C L 06/21/18 18:00 Pulse 81 06/21/18 18:00 Resp 14 06/21/18 18:00 BP 93/49 L 06/21/18 18:00 Pulse Ox 96 06/21/18 18:00 Constitutional: well developed, + ill appearing and + malnourished on 100% high flow 02 w/ sats 88-90 Eyes: EOM intact bilaterally R eye nearly swollen shut w/ subacute ecchymosis ENMT: Ears: no external ear abnormality Nose: no external nose abnormality Mouth: + dry oral mucous membranes and + poor dentition Neck: no nuchal rigidity Respiratory: normal respiratory effort Auscultation: + diminished lung sounds Cardiovascular: Rate/Rhythm: regular rate and regular rhythm Extremities: + edema (3+ BL thigh edema, less peripherally); + abnormal capillary refill cyanotic extremities Gastrointestinal (Abdomen): Inspection/Auscultation: normal bowel sounds Percussion/Palpation: abdomen soft; abdomen nontender Musculoskeletal: Head/Neck/Chest: neck supple Extremities: + limited ROM of extremities Skin: no rashes, warm and dry + turgor decreased and + ecchymosis ( scattered/ diffuse) Trauma: + contusion (R brow) Neurologic: awake alston, fluent if perseverant speech, some psychomotor slowing Psychiatric: Orientation: alert, oriented x 3 and cooperative Apperance: appropriately groomed Eye Contact: good eye contact Speech: + pressured speech Thought Process: + tangential thought process Cognition: recent memory grossly intact and remote memory grossly intact Estimated Intelligence : average estimated intelligence Insight: good insight Judgement: good judgement Genitourinary: solomon w/ scant dark newberry urine Results & Data Laboratory Results Abnormal lab results 06/21/18 06/21/18 06/21/18 Range/Units 07:35 07:35 07:46 POC Hgb 18.7 H (14.0-18.0) g/dl POC Hct 55 H (42-52) % RDW Std Deviation 63.4 H (36.4-46.3) fL RDW Coeff of Marie 19.0 H (11.5-14.5) % MPV 10.8 H (7.4-10.4) fL Lymph # (Auto) 0.61 L (1.2-3.4) K/uL POC pH (7.35-7.45) POC pCO2 (35-46) mmHg POC pO2 (80-95) mmHg POC Sodium 132 L (135-144) mEq/L Sodium 128 L (136-145) mmol/L POC Potassium 2.3 L* (3.3-5.0) mEq/L Potassium 2.4 L* (3.5-5.1) mmol/L POC Chloride 86 L (101-112) mEq/L Chloride 85 L (98-107) mmol/L Anion Gap 17.0 H (3-11) POC BUN 101 H* (7-18) mg/dl BUN 130 H (7-18) mg/dl Creatinine 5.32 H* D (0.6-1.4) mg/dl POC Creatinine 5.3 H* (0.6-1.3) mg/dl BUN/Creatinine Ratio 24.5 H (10-20) Glucose (70-99) mg/dl Calcium (8.5-10.1) mg/dl POC Ioniz Calcium Rosaura 0.92 L (1.12-1.32) mmol/l Magnesium (1.8-2.4) mg/dl Total Bilirubin 4.0 H (0.2-1) mg/dl Alkaline Phosphatase 184 H (45-117) U/L Total Creatine Kinase 329 H (39-308) U/L CK-MB (CK-2) 7.1 H (0.5-3.6) ng/ml Troponin I 0.221 H* (0-0.045) ng/ml NT-Pro-B Natriuret Pep (0-1800) pg/ml Albumin 2.8 L (3.4-5.0) gm/dl Globulin 5.4 H (2.5-4.0) gm/dl Albumin/Globulin Ratio 0.5 L (0.9-2) TSH 7.240 H (0.300-4.500) uIu/ml Urine Appearance (Clear) Urine Protein (Negative) Urine Blood (Negative) Urine Nitrite (Negative) Ur Leukocyte Esterase (Negative) Urine WBC (Auto) (0-5) /hpf Urine RBC (Auto) (0-4) /hpf U Epithel Cells (Auto) (0-5) /lpf Nasal Screen MRSA (PCR) (Negative) 06/21/18 06/21/18 06/21/18 Range/Units 08:08 08:08 10:15 POC Hgb (14.0-18.0) g/dl POC Hct (42-52) % RDW Std Deviation (36.4-46.3) fL RDW Coeff of Marie (11.5-14.5) % MPV (7.4-10.4) fL Lymph # (Auto) (1.2-3.4) K/uL POC pH 7.47 H (7.35-7.45) POC pCO2 33 L (35-46) mmHg POC pO2 54 L (80-95) mmHg POC Sodium (135-144) mEq/L Sodium 130 L (136-145) mmol/L POC Potassium (3.3-5.0) mEq/L Potassium 2.1 L* (3.5-5.1) mmol/L POC Chloride (101-112) mEq/L Chloride 91 L (98-107) mmol/L Anion Gap 14.0 H (3-11) POC BUN (7-18) mg/dl BUN 122 H (7-18) mg/dl Creatinine 4.70 H* D (0.6-1.4) mg/dl POC Creatinine (0.6-1.3) mg/dl BUN/Creatinine Ratio 26.0 H (10-20) Glucose 107 H (70-99) mg/dl Calcium 7.6 L (8.5-10.1) mg/dl POC Ioniz Calcium Rosaura (1.12-1.32) mmol/l Magnesium 4.0 H (1.8-2.4) mg/dl Total Bilirubin (0.2-1) mg/dl Alkaline Phosphatase (45-117) U/L Total Creatine Kinase (39-308) U/L CK-MB (CK-2) (0.5-3.6) ng/ml Troponin I 0.197 H* (0-0.045) ng/ml NT-Pro-B Natriuret Pep 7537 H (0-1800) pg/ml Albumin (3.4-5.0) gm/dl Globulin (2.5-4.0) gm/dl Albumin/Globulin Ratio (0.9-2) TSH (0.300-4.500) uIu/ml Urine Appearance (Clear) Urine Protein (Negative) Urine Blood (Negative) Urine Nitrite (Negative) Ur Leukocyte Esterase (Negative) Urine WBC (Auto) (0-5) /hpf Urine RBC (Auto) (0-4) /hpf U Epithel Cells (Auto) (0-5) /lpf Nasal Screen MRSA (PCR) (Negative) 06/21/18 06/21/18 Range/Units Unknown Unknown POC Hgb (14.0-18.0) g/dl POC Hct (42-52) % RDW Std Deviation (36.4-46.3) fL RDW Coeff of Marie (11.5-14.5) % MPV (7.4-10.4) fL Lymph # (Auto) (1.2-3.4) K/uL POC pH (7.35-7.45) POC pCO2 (35-46) mmHg POC pO2 (80-95) mmHg POC Sodium (135-144) mEq/L Sodium (136-145) mmol/L POC Potassium (3.3-5.0) mEq/L Potassium (3.5-5.1) mmol/L POC Chloride (101-112) mEq/L Chloride (98-107) mmol/L Anion Gap (3-11) POC BUN (7-18) mg/dl BUN (7-18) mg/dl Creatinine (0.6-1.4) mg/dl POC Creatinine (0.6-1.3) mg/dl BUN/Creatinine Ratio (10-20) Glucose (70-99) mg/dl Calcium (8.5-10.1) mg/dl POC Ioniz Calcium Rosaura (1.12-1.32) mmol/l Magnesium (1.8-2.4) mg/dl Total Bilirubin (0.2-1) mg/dl Alkaline Phosphatase (45-117) U/L Total Creatine Kinase (39-308) U/L CK-MB (CK-2) (0.5-3.6) ng/ml Troponin I (0-0.045) ng/ml NT-Pro-B Natriuret Pep (0-1800) pg/ml Albumin (3.4-5.0) gm/dl Globulin (2.5-4.0) gm/dl Albumin/Globulin Ratio (0.9-2) TSH (0.300-4.500) uIu/ml Urine Appearance Turbid H (Clear) Urine Protein 2+ H (Negative) Urine Blood 3+ H (Negative) Urine Nitrite Positive H (Negative) Ur Leukocyte Esterase 3+ H (Negative) Urine WBC (Auto) >30 H (0-5) /hpf Urine RBC (Auto) >30 H (0-4) /hpf U Epithel Cells (Auto) 10-20 H (0-5) /lpf Nasal Screen MRSA (PCR) Positive A (Negative) Diagnostic Findings cxr FINDINGS: Prior median sternotomy and valve replacement. Mild stable cardiomegaly. Prominence of pulmonary vasculature also considered chronic. IMPRESSION: Chronic and postoperative change. No acute process. venous dopplers> no BLE DVT _ (1) Acute on chronic renal failure Acute renal failure type: unspecified Chronic kidney disease stage: stage 4 ( severe) Qualified Code(s): N17.9 - Acute kidney failure, unspecified; N18.4 - Chronic kidney disease, stage 4 (severe)
[2018-06-21] MEDS ORDERED: CALCIUM GLUCONATE 10% 1,000 MG in SODIUM CHLORIDE 0.9% 50 ML IV ONE (19:45)
[2018-06-21 19:55] LABS: INR 1.7 (0.9-1.1); Prothrombin Time 16.3 Seconds (9.0-12.0)
[2018-06-21 21:21] LABS: BUN Creatinine Ratio 26.7 (10-20); Calcium 8.3 mg/dl (8.5-10.1); Creatinine Clr Calc Pharmacy 11.3 ml/min; Est GFR (African American) 11.3; Est GFR (Non-African American) 9.8
[2018-06-21] MEDS ORDERED: CALCIUM GLUCONATE 10% 1,000 MG in SODIUM CHLORIDE 0.9% 50 ML IV STA (21:54)
[2018-06-21] MEDS: HEPARIN SOD 5,000 UNIT/0.5 ML VIAL SQ SCH (22:27)
[2018-06-22] MEDS: POTASSIUM CHLORIDE / WTR 10 MEQ/100 ML PLCT IV SCH ×9 (00:37→18:31)
[2018-06-22] MEDS: NOREPINEPHRINE BIT INJ 8 MG in DEXTROSE 5% 500 ML IV SCH ×2 (04:32→15:25)
[2018-06-22 05:08] LABS: Hematocrit (blood only) 43.9 % (42-52); Hemoglobin 15.3 g/dL (14.0-18.0); Mean Corpuscular Hgb Conc 34.9 g/dL (32-36); Mean Corpuscular Volume 90.5 fL (80-100); Mean Platelet Volume 10.7 fL (7.4-10.4); Nucleated RBC # (auto) 0.02 K/uL (0-0); Nucleated RBC % (auto) 0.3 %; Platelet Count 159 K/uL (130-400); RDW Coefficient of Variation 18.4 % (11.5-14.5); Red Blood Count 4.85 M/uL (4.7-6.1); White Blood Count 7.06 K/uL (4.8-10.8)
[2018-06-22 05:53] LABS: BUN Creatinine Ratio 27.8 (10-20); Calcium 8.3 mg/dl (8.5-10.1); Creatinine Clr Calc Pharmacy 11.6 ml/min; Est GFR (African American) 11.7; Est GFR (Non-African American) 10.1; Potassium 2.9 mmol/L (3.5-5.1)
[2018-06-22] MEDS: HEPARIN SOD 5,000 UNIT/0.5 ML VIAL SQ SCH ×2 (06:12→14:13)
--- NOTE | 2018-06-22 07:49 | Emergency Department Note ---
Entered by Dorcas Dang acting as a scribe for Josh Snyder MD History of Present Illness General Chief complaint: Abnormal Labs/Diagnostic Testing Time Seen by Provider: 06/21/18 06:56 Source: patient and other (nursing staff) History of Present Illness Provider complaint: abnormal labs Onset (ago): hour(s) (today) Location: left and right Pain Consistency: + constant Quality: + other (abnormal labs) Associated symptoms: + weakness The patient is an 82 year old male who presents to the Emergency Room with complaints of abnormal labs today. Per nursing staff, the patient had blood work done that showed low potassium and high creatinine and was referred here. Nursing staff states that the patient was supposed to come to the ED yesterday but did not secondary to road conditions. Per nursing staff, the patient has been generally weak. Nursing staff states that the patient wears 3L of Oxygen at home. Home Medications Home Medications Medication Instructions Recorded Confirmed Type aspirin [Aspir-81] 81 mg PO DAILY 06/21/18 06/21/18 History atorvastatin 40 mg PO DAILY 06/21/18 06/21/18 History furosemide 80 mg PO BID 06/21/18 06/21/18 History magnesium oxide 400 mg PO DAILY 06/21/18 06/21/18 History metolazone 5 mg PO Q2D 06/21/18 06/21/18 History metoprolol succinate 25 mg PO DAILY 06/21/18 06/21/18 History potassium chloride 20 meq PO BID 06/21/18 06/21/18 History tamsulosin 0.4 mg PO DAILY 06/21/18 06/21/18 History Allergies Allergy/AdvReac Type Severity Reaction Status Date / Time No Known Allergies Allergy Unverified 06/21/18 08:28 Past Med/Surg History Medical History CAD (coronary artery disease) (Chronic) Pulmonary HTN (Chronic) CHF (congestive heart failure) (Chronic) Hypertension (Chronic) Dyslipidemia (Chronic) Chronic right-sided CHF (congestive heart failure) (Chronic) Pulmonary hypertension (Chronic) Cor pulmonale (Chronic) Aortic regurgitation (Chronic) CKD (chronic kidney disease), stage IV (Chronic) Surgical History S/P CABG x 4 (Resolved) History of nasal surgery (Resolved) Hx of tonsillectomy (Resolved) Status post mitral valve replacement (Resolved) "bioprosthetic MVR" Family History Other Family history non-contributory Social History Current Living Situation: Spouse current occupational status: retired Other Information That Helps Us Care for You: No Feels Safe at Home: Yes Safety Concerns: Feels Safe At This Time Smoking Status: Never smoker Hx Alcohol Use: Yes Alcohol type: wine Alcohol Intake Frequency: 0-2 drinks per day Hx Substance Use: No Beliefs That Will Affect Care: None Preferred Language: Greek Communication Ability: Effective Review of Systems See HPI for pertinent positives & negatives. and A total of 10 systems reviewed and were otherwise negative Physical Exam Vital Signs Vital Signs - 24 hr 06/21/18 08:10 06/21/18 08:12 06/21/18 08:25 Temperature Pulse Rate Pulse Rate [Finger] 67 Pulse Rhythm [Finger] Regular Pulse Strength [Finger] Normal Respiratory Rate 22 Respiratory Effort / Characteristics Spontaneous Short of Breath SOB on Exertion Non-Labored Respiratory Depth Shallow Normal Respiratory Pattern Blood Pressure Blood Pressure [Right Arm] 101/62 Blood Pressure Mean Blood Pressure Mean [Right Arm] 75 Blood Pressure Position [Right Arm] Lying Pulse Oximetry 92 Oxygen Delivery Method BiPAP BiPAP Oxygen Flow Rate Fraction of Inspired Oxygen 100 100 06/21/18 09:43 06/21/18 10:00 06/21/18 11:02 Temperature 36.6 C Pulse Rate 66 63 Pulse Rate [Finger] Pulse Rhythm [Finger] Pulse Strength [Finger] Respiratory Rate 15 14 Respiratory Effort / Characteristics Spontaneous Non-Labored Spontaneous Respiratory Depth Normal Normal Respiratory Pattern Regular Regular Blood Pressure 83/53 L Blood Pressure [Right Arm] Blood Pressure Mean 63 Blood Pressure Mean [Right Arm] Blood Pressure Position [Right Arm] Pulse Oximetry 82 L 88 L Oxygen Delivery Method BiPAP Oxygen Flow Rate Fraction of Inspired Oxygen 100 100 06/21/18 11:24 06/21/18 11:46 06/21/18 12:00 Temperature Pulse Rate 63 63 63 Pulse Rate [Finger] Pulse Rhythm [Finger] Pulse Strength [Finger] Respiratory Rate 15 17 18 Respiratory Effort / Characteristics Respiratory Depth Respiratory Pattern Blood Pressure 60/38 L 59/38 L 75/43 L Blood Pressure [Right Arm] Blood Pressure Mean 45 45 53 Blood Pressure Mean [Right Arm] Blood Pressure Position [Right Arm] Pulse Oximetry 88 L 85 L 90 Oxygen Delivery Method Oxygen Flow Rate Fraction of Inspired Oxygen 06/21/18 12:34 06/21/18 12:45 06/21/18 13:01 Temperature Pulse Rate 67 67 66 Pulse Rate [Finger] Pulse Rhythm [Finger] Pulse Strength [Finger] Respiratory Rate 17 12 18 Respiratory Effort / Characteristics Respiratory Depth Respiratory Pattern Blood Pressure 104/61 106/67 82/64 L Blood Pressure [Right Arm] Blood Pressure Mean 75 80 70 Blood Pressure Mean [Right Arm] Blood Pressure Position [Right Arm] Pulse Oximetry 68 L 70 L Oxygen Delivery Method Oxygen Flow Rate Fraction of Inspired Oxygen 06/21/18 13:16 06/21/18 13:30 06/21/18 13:45 Temperature Pulse Rate 70 68 75 Pulse Rate [Finger] Pulse Rhythm [Finger] Pulse Strength [Finger] Respiratory Rate 17 15 17 Respiratory Effort / Characteristics Respiratory Depth Respiratory Pattern Blood Pressure 110/77 99/62 L 102/61 Blood Pressure [Right Arm] Blood Pressure Mean 88 74 74 Blood Pressure Mean [Right Arm] Blood Pressure Position [Right Arm] Pulse Oximetry 75 L 80 L 88 L Oxygen Delivery Method Oxygen Flow Rate Fraction of Inspired Oxygen 06/21/18 14:00 06/21/18 14:31 06/21/18 14:45 Temperature Pulse Rate 76 84 73 Pulse Rate [Finger] Pulse Rhythm [Finger] Pulse Strength [Finger] Respiratory Rate 19 19 16 Respiratory Effort / Characteristics Respiratory Depth Respiratory Pattern Blood Pressure 87/60 L 100/63 90/50 L Blood Pressure [Right Arm] Blood Pressure Mean 69 75 63 Blood Pressure Mean [Right Arm] Blood Pressure Position [Right Arm] Pulse Oximetry 78 L 82 L 94 Oxygen Delivery Method Oxygen Flow Rate Fraction of Inspired Oxygen 06/21/18 15:31 06/21/18 16:26 06/21/18 17:01 Temperature Pulse Rate 79 79 83 Pulse Rate [Finger] Pulse Rhythm [Finger] Pulse Strength [Finger] Respiratory Rate 19 15 21 Respiratory Effort / Characteristics Respiratory Depth Respiratory Pattern Blood Pressure 124/108 H 74/44 L 80/54 L Blood Pressure [Right Arm] Blood Pressure Mean 113 54 62 Blood Pressure Mean [Right Arm] Blood Pressure Position [Right Arm] Pulse Oximetry 83 L 95 80 L Oxygen Delivery Method Oxygen Flow Rate Fraction of Inspired Oxygen 06/21/18 17:30 06/21/18 18:00 06/21/18 19:00 Temperature 36.1 C L Pulse Rate 78 81 85 Pulse Rate [Finger] Pulse Rhythm [Finger] Pulse Strength [Finger] Respiratory Rate 18 14 15 Respiratory Effort / Characteristics Respiratory Depth Respiratory Pattern Blood Pressure 83/48 L 93/49 L 92/53 L Blood Pressure [Right Arm] Blood Pressure Mean 59 63 66 Blood Pressure Mean [Right Arm] Blood Pressure Position [Right Arm] Pulse Oximetry 95 96 85 L Oxygen Delivery Method High Flow Nasal Cannula Oxygen Flow Rate Fraction of Inspired Oxygen 95 06/21/18 19:32 06/21/18 20:00 06/21/18 20:30 Temperature 36.8 C Pulse Rate 78 79 85 Pulse Rate [Finger] Pulse Rhythm [Finger] Pulse Strength [Finger] Respiratory Rate 25 H 20 22 Respiratory Effort / Characteristics Spontaneous SOB on Exertion Respiratory Depth Normal Respiratory Pattern Regular Blood Pressure 81/50 L 92/38 L 83/53 L Blood Pressure [Right Arm] Blood Pressure Mean 60 56 63 Blood Pressure Mean [Right Arm] Blood Pressure Position [Right Arm] Pulse Oximetry 90 88 L 92 Oxygen Delivery Method High Flow Nasal Cannula High Flow Nasal Cannula High Flow Nasal Cannula Oxygen Flow Rate 55 Fraction of Inspired Oxygen 95 95 95 06/21/18 21:01 06/21/18 21:02 06/21/18 21:30 Temperature Pulse Rate 81 79 77 Pulse Rate [Finger] Pulse Rhythm [Finger] Pulse Strength [Finger] Respiratory Rate 18 21 13 Respiratory Effort / Characteristics Respiratory Depth Respiratory Pattern Blood Pressure 84/46 L 102/72 89/48 L Blood Pressure [Right Arm] Blood Pressure Mean 58 82 61 Blood Pressure Mean [Right Arm] Blood Pressure Position [Right Arm] Pulse Oximetry 86 L 89 L 92 Oxygen Delivery Method High Flow Nasal Cannula High Flow Nasal Cannula High Flow Nasal Cannula Oxygen Flow Rate Fraction of Inspired Oxygen 95 95 95 06/21/18 22:00 06/21/18 22:03 06/21/18 22:30 Temperature Pulse Rate 85 87 90 Pulse Rate [Finger] Pulse Rhythm [Finger] Pulse Strength [Finger] Respiratory Rate 18 21 16 Respiratory Effort / Characteristics Respiratory Depth Respiratory Pattern Blood Pressure 79/52 L 86/52 L 85/55 L Blood Pressure [Right Arm] Blood Pressure Mean 61 63 65 Blood Pressure Mean [Right Arm] Blood Pressure Position [Right Arm] Pulse Oximetry 97 94 95 Oxygen Delivery Method High Flow Nasal Cannula High Flow Nasal Cannula High Flow Nasal Cannula Oxygen Flow Rate Fraction of Inspired Oxygen 95 95 95 06/21/18 23:00 06/21/18 23:30 06/21/18 23:35 Temperature Pulse Rate 90 90 89 Pulse Rate [Finger] Pulse Rhythm [Finger] Pulse Strength [Finger] Respiratory Rate 17 17 16 Respiratory Effort / Characteristics Respiratory Depth Respiratory Pattern Blood Pressure 105/59 L 75/47 L 90/53 L Blood Pressure [Right Arm] Blood Pressure Mean 74 56 65 Blood Pressure Mean [Right Arm] Blood Pressure Position [Right Arm] Pulse Oximetry 93 95 95 Oxygen Delivery Method High Flow Nasal Cannula High Flow Nasal Cannula High Flow Nasal Cannula Oxygen Flow Rate Fraction of Inspired Oxygen 95 95 95 06/21/18 23:45 06/22/18 00:01 06/22/18 00:12 Temperature 36.4 C L Pulse Rate 89 97 H 87 Pulse Rate [Finger] Pulse Rhythm [Finger] Pulse Strength [Finger] Respiratory Rate 15 19 16 Respiratory Effort / Characteristics Respiratory Depth Respiratory Pattern Blood Pressure 88/52 L 80/49 L 57/43 L Blood Pressure [Right Arm] Blood Pressure Mean 64 59 47 Blood Pressure Mean [Right Arm] Blood Pressure Position [Right Arm] Pulse Oximetry 92 94 96 Oxygen Delivery Method High Flow Nasal Cannula High Flow Nasal Cannula High Flow Nasal Cannula Oxygen Flow Rate Fraction of Inspired Oxygen 95 95 95 06/22/18 00:17 06/22/18 00:31 06/22/18 00:45 Temperature Pulse Rate 88 88 86 Pulse Rate [Finger] Pulse Rhythm [Finger] Pulse Strength [Finger] Respiratory Rate 23 18 18 Respiratory Effort / Characteristics Respiratory Depth Respiratory Pattern Blood Pressure 90/44 L 106/51 L 93/48 L Blood Pressure [Right Arm] Blood Pressure Mean 59 69 63 Blood Pressure Mean [Right Arm] Blood Pressure Position [Right Arm] Pulse Oximetry 93 93 94 Oxygen Delivery Method High Flow Nasal Cannula High Flow Nasal Cannula High Flow Nasal Cannula Oxygen Flow Rate Fraction of Inspired Oxygen 95 95 95 06/22/18 01:01 06/22/18 01:12 06/22/18 01:16 Temperature Pulse Rate 85 85 84 Pulse Rate [Finger] Pulse Rhythm [Finger] Pulse Strength [Finger] Respiratory Rate 15 21 14 Respiratory Effort / Characteristics Respiratory Depth Respiratory Pattern Blood Pressure 80/44 L 102/68 108/69 Blood Pressure [Right Arm] Blood Pressure Mean 56 79 82 Blood Pressure Mean [Right Arm] Blood Pressure Position [Right Arm] Pulse Oximetry 94 92 94 Oxygen Delivery Method High Flow Nasal Cannula High Flow Nasal Cannula High Flow Nasal Cannula Oxygen Flow Rate Fraction of Inspired Oxygen 95 95 95 06/22/18 01:30 06/22/18 01:45 06/22/18 02:00 Temperature Pulse Rate 86 89 89 Pulse Rate [Finger] Pulse Rhythm [Finger] Pulse Strength [Finger] Respiratory Rate 15 13 15 Respiratory Effort / Characteristics Respiratory Depth Respiratory Pattern Blood Pressure 101/72 92/58 L 98/63 L Blood Pressure [Right Arm] Blood Pressure Mean 81 69 74 Blood Pressure Mean [Right Arm] Blood Pressure Position [Right Arm] Pulse Oximetry 94 96 93 Oxygen Delivery Method High Flow Nasal Cannula High Flow Nasal Cannula High Flow Nasal Cannula Oxygen Flow Rate Fraction of Inspired Oxygen 95 95 95 06/22/18 02:15 06/22/18 02:30 06/22/18 02:45 Temperature Pulse Rate 82 87 89 Pulse Rate [Finger] Pulse Rhythm [Finger] Pulse Strength [Finger] Respiratory Rate 15 18 15 Respiratory Effort / Characteristics Respiratory Depth Respiratory Pattern Blood Pressure 107/54 L 100/62 106/63 Blood Pressure [Right Arm] Blood Pressure Mean 71 74 77 Blood Pressure Mean [Right Arm] Blood Pressure Position [Right Arm] Pulse Oximetry 95 91 89 L Oxygen Delivery Method High Flow Nasal Cannula High Flow Nasal Cannula High Flow Nasal Cannula Oxygen Flow Rate Fraction of Inspired Oxygen 95 95 95 06/22/18 03:00 06/22/18 03:02 06/22/18 03:15 Temperature Pulse Rate 91 H 88 90 Pulse Rate [Finger] Pulse Rhythm [Finger] Pulse Strength [Finger] Respiratory Rate 21 19 13 Respiratory Effort / Characteristics Respiratory Depth Respiratory Pattern Blood Pressure 98/64 L 112/67 95/66 L Blood Pressure [Right Arm] Blood Pressure Mean 75 82 75 Blood Pressure Mean [Right Arm] Blood Pressure Position [Right Arm] Pulse Oximetry 91 93 Oxygen Delivery Method High Flow Nasal Cannula High Flow Nasal Cannula High Flow Nasal Cannula Oxygen Flow Rate Fraction of Inspired Oxygen 95 95 95 06/22/18 03:30 06/22/18 03:45 06/22/18 04:00 Temperature Pulse Rate 90 82 86 Pulse Rate [Finger] Pulse Rhythm [Finger] Pulse Strength [Finger] Respiratory Rate 22 14 12 Respiratory Effort / Characteristics Respiratory Depth Respiratory Pattern Blood Pressure 109/67 86/51 L 103/60 Blood Pressure [Right Arm] Blood Pressure Mean 81 62 74 Blood Pressure Mean [Right Arm] Blood Pressure Position [Right Arm] Pulse Oximetry 86 L 84 L 94 Oxygen Delivery Method High Flow Nasal Cannula Oxygen Flow Rate Fraction of Inspired Oxygen 95 06/22/18 04:15 06/22/18 04:30 06/22/18 04:45 Temperature Pulse Rate 84 84 84 Pulse Rate [Finger] Pulse Rhythm [Finger] Pulse Strength [Finger] Respiratory Rate 16 10 L 18 Respiratory Effort / Characteristics Respiratory Depth Respiratory Pattern Blood Pressure 97/62 L 80/58 L 95/53 L Blood Pressure [Right Arm] Blood Pressure Mean 73 65 67 Blood Pressure Mean [Right Arm] Blood Pressure Position [Right Arm] Pulse Oximetry 88 L 88 L 92 Oxygen Delivery Method Oxygen Flow Rate Fraction of Inspired Oxygen 06/22/18 05:00 06/22/18 05:15 06/22/18 05:30 Temperature Pulse Rate 92 H 92 H 83 Pulse Rate [Finger] Pulse Rhythm [Finger] Pulse Strength [Finger] Respiratory Rate 17 21 13 Respiratory Effort / Characteristics Respiratory Depth Respiratory Pattern Blood Pressure 102/58 L 107/73 99/64 L Blood Pressure [Right Arm] Blood Pressure Mean 72 84 75 Blood Pressure Mean [Right Arm] Blood Pressure Position [Right Arm] Pulse Oximetry 83 L Oxygen Delivery Method Oxygen Flow Rate Fraction of Inspired Oxygen 06/22/18 05:45 06/22/18 06:00 06/22/18 06:15 Temperature Pulse Rate 86 83 85 Pulse Rate [Finger] Pulse Rhythm [Finger] Pulse Strength [Finger] Respiratory Rate 11 L 12 12 Respiratory Effort / Characteristics Respiratory Depth Respiratory Pattern Blood Pressure 104/56 L 93/58 L 93/56 L Blood Pressure [Right Arm] Blood Pressure Mean 72 69 68 Blood Pressure Mean [Right Arm] Blood Pressure Position [Right Arm] Pulse Oximetry 87 L 88 L 89 L Oxygen Delivery Method Oxygen Flow Rate Fraction of Inspired Oxygen 06/22/18 06:30 Temperature Pulse Rate 85 Pulse Rate [Finger] Pulse Rhythm [Finger] Pulse Strength [Finger] Respiratory Rate 16 Respiratory Effort / Characteristics Respiratory Depth Respiratory Pattern Blood Pressure 98/57 L Blood Pressure [Right Arm] Blood Pressure Mean 70 Blood Pressure Mean [Right Arm] Blood Pressure Position [Right Arm] Pulse Oximetry 90 Oxygen Delivery Method Oxygen Flow Rate Fraction of Inspired Oxygen GENERAL: Awake, alert, well-appearing, in no distress HENT: Normocephalic, atraumatic. Contusion to the right eye orbit. Oropharynx unremarkable. Ecchymotic ears. EYES: Normal conjunctiva. Sclera non-icteric. NECK: Supple. No nuchal rigidity. FROM. No masses. RESPIRATORY: Bilateral wheezing. No rales. Normal respiratory effort. CARDIAC: Normal rate. Normal rhythm. No murmurs. No rubs. Extremities warm and well perfused. Pulses equal. No JVD. GI: Soft, non-distended. No tenderness to palpation. No rebound or guarding. No masses. RECTAL: Deferred. MUSCULOSKELETAL: Atraumatic. Chest examination reveals no tenderness. The back is symmetrical on inspection without obvious abnormality. There is no CVA tenderness to palpation. No joint edema. LOWER EXTREMITIES: Calves are equal size bilaterally and non-tender. Ecchymotic legs. Open weeping wounds. NEURO: Normal sensorium. No sensory or motor deficits noted. Course 0657: Past medical records reviewed. The patient was evaluated in room C2B, and a complete history and physical examination were performed. 0720: I checked on the patient. 0800: I updated the patient's at bedside. 0804: I discussed the patient's case with Dr. Childress who will evaluate the patient for further management. 0808: I discussed the patient's case with Jayleen Blackman who will evaluate the patient for further management. Consultations Consultation #1: Dr. Childress Time: 08:04 Consultation #2: Jayleen Blackman Time: 08:08 Administered Medications Heparin Sodium (Porcine) (Heparin Sodium (Porcine)) 5,000 units SQ Q8 [facility] Stop: 07/21/18 21:59 Last Admin: 06/22/18 06:12 Dose: 5,000 units Admin: 06/21/18 22:27 Dose: 5,000 units Norepinephrine Bitartrate 8 mg (/ Dextrose) 508 mls @ 43.95 mls/hr IV .[id number] [facility]; Protocol Stop: 07/21/18 12:14 Last Titration: 06/22/18 06:59 Dose: 0.14 mcg/kg/min, 44 mls/hr Admin: 06/22/18 04:32 Dose: 0.14 mcg/kg/min, 44 mls/hr Titration: 06/22/18 04:32 Dose: 0.14 mcg/kg/min, 44 mls/hr Titration: 06/22/18 00:00 Dose: 0.14 mcg/kg/min, 44 mls/hr Titration: 06/21/18 20:38 Dose: 0.12 mcg/kg/min, 37.7 mls/hr Titration: 06/21/18 19:01 Dose: 0.09 mcg/kg/min, 28.3 mls/hr Titration: 06/21/18 18:32 Dose: 0.09 mcg/kg/min, 28.3 mls/hr Titration: 06/21/18 17:49 Dose: 0.07 mcg/kg/min, 22 mls/hr Admin: 06/21/18 12:23 Dose: 0.05 mcg/kg/min, 15.7 mls/hr Dobutamine HCl/Dextrose (Dobutamine / D5w) 500 mg in 250 mls @ 12.36 mls/hr IV .[id number] STACY; Protocol Stop: 07/21/18 12:27 Last Titration: 06/22/18 06:59 Dose: 5 mcg/kg/min, 12.4 mls/hr Titration: 06/21/18 19:01 Dose: 5.01 mcg/kg/min, 12.4 mls/hr Admin: 06/21/18 13:32 Dose: 5 mcg/kg/min, 12.4 mls/hr Discontinued Medications Sodium Chloride (Nss 1000ml) 500 mls @ 999 mls/hr IV .Q31M ONE Stop: 06/21/18 07:48 Last Infusion: 06/21/18 09:05 Dose: 0 mls/hr Admin: 06/21/18 08:05 Dose: 999 mls/hr Sodium Chloride (Nss 1000ml) 500 mls @ 999 mls/hr IV .Q31M ONE Stop: 06/21/18 08:18 Last Admin: 06/21/18 15:28 Dose: Not Given Potassium Chloride (K Bernardo / Wtr) 10 meq in 100 mls @ 100 mls/hr IV Q1H STACY Stop: 06/21/18 09:59 Last Infusion: 06/21/18 10:08 Dose: 0 mls/hr Admin: 06/21/18 09:04 Dose: 100 mls/hr Infusion: 06/21/18 09:04 Dose: 100 mls/hr Admin: 06/21/18 08:10 Dose: 100 mls/hr Levofloxacin/Dextrose (Levaquin/D5w) 750 mg in 150 mls @ 100 mls/hr IV NOW STA Stop: 06/21/18 09:24 Last Infusion: 06/21/18 10:40 Dose: 0 mls/hr Admin: 06/21/18 09:04 Dose: 100 mls/hr Piperacillin Sod/Tazobactam Sod (Zosyn) 4.5 gm in 120 mls @ 240 mls/hr IV NOW ONE Stop: 06/21/18 08:24 Last Infusion: 06/21/18 09:05 Dose: 0 mls/hr Admin: 06/21/18 08:30 Dose: 240 mls/hr Vancomycin HCl 1,750 mg/ (Sodium Chloride) 535 mls @ 200 mls/hr IV NOW ONE Stop: 06/21/18 10:35 Last Infusion: 06/21/18 13:23 Dose: 0 mls/hr Admin: 06/21/18 10:42 Dose: 200 mls/hr Sodium Chloride (Nss 1000ml) 500 mls @ 999 mls/hr IV .Q31M ONE Stop: 06/21/18 08:26 Last Admin: 06/21/18 15:28 Dose: Not Given Potassium Chloride (K Bernardo / Wtr) 10 meq in 100 mls @ 100 mls/hr IV Q1H [facility] Stop: 06/21/18 19:44 Last Infusion: 06/21/18 19:45 Dose: 0 mls/hr Admin: 06/21/18 18:41 Dose: 100 mls/hr Infusion: 06/21/18 18:41 Dose: 100 mls/hr Admin: 06/21/18 17:49 Dose: 100 mls/hr Calcium Gluconate 1,000 mg/ (Sodium Chloride) 60 mls @ 240 mls/hr IV TODAY@ 1945 ONE Stop: 06/21/18 19:59 Last Infusion: 06/21/18 20:39 Dose: 0 mls/hr Admin: 06/21/18 20:24 Dose: 240 mls/hr Potassium Chloride (K Bernardo / Wtr) 10 meq in 100 mls @ 100 mls/hr IV Q1H [facility] Stop: 06/22/18 00:52 Last Infusion: 06/22/18 01:39 Dose: 0 mls/hr Admin: 06/22/18 00:37 Dose: 100 mls/hr Infusion: 06/22/18 00:30 Dose: 100 mls/hr Admin: 06/21/18 23:30 Dose: 100 mls/hr Infusion: 06/21/18 23:22 Dose: 100 mls/hr Admin: 06/21/18 22:22 Dose: 100 mls/hr Calcium Gluconate 1,000 mg/ (Sodium Chloride) 60 mls @ 240 mls/hr IV NOW STA Stop: 06/21/18 22:08 Last Infusion: 06/21/18 22:44 Dose: 0 mls/hr Admin: 06/21/18 22:25 Dose: 240 mls/hr Levalbuterol HCl (Xopenenx 1.25mg/3ml Neb) 1.25 mg NEB NOW STA Stop: 06/21/18 07:17 Last Admin: 06/21/18 07:43 Dose: 1.25 mg Levalbuterol HCl (Xopenex 1.25mg/0.5ml Neb) Confirm Administered Dose 1.25 mg .ROUTE .STK-MED ONE Stop: 06/21/18 07:41 Last Admin: 06/21/18 08:29 Dose: Not Given Lidocaine HCl (Xylocaine 2% Preserved) Confirm Administered Dose 50 ml .ROUTE .STK-MED ONE Stop: 06/21/18 13:55 Last Admin: 06/21/18 14:16 Dose: Not Given Potassium Chloride (Klor-Con M20) 40 meq PO NOW STA Stop: 06/21/18 07:49 Last Admin: 06/21/18 08:10 Dose: 40 meq Medical Decision Making Differential Diagnosis Differentials include: ICH, CVA, PNA, bronchitis, PE, UTI, gastroenteritis, electrolyte abnormality, ACS, CHF among others. Medical Records Attestation: I reviewed the patient's medical records. Home Medications Current Medication List: was personally reviewed by me Laboratory Data Attestation: I reviewed the patient's lab results. Result diagrams: 06/22/18 04:46 06/22/18 04:46 Lab Results 01/08/19 01/08/19 01/08/19 Range/Units 07:35 07:35 07:35 WBC 5.39 (4.8-10.8) K/uL RBC 5.00 (4.7-6.1) M/uL Hgb 15.8 (14.0-18.0) g/dL POC Hgb (14.0-18.0) g/dl Hct 46.3 (42-52) % POC Hct (42-52) % MCV 92.6 (80-100) fL MCH 31.6 (25-34) pg MCHC 34.1 (32-36) g/dL RDW Std Deviation 63.4 H (36.4-46.3) fL RDW Coeff of Marie 19.0 H (11.5-14.5) % Plt Count 159 (130-400) K/uL MPV 10.8 H (7.4-10.4) fL Immature Gran % (Auto) 0.2 % Neut % (Auto) 78.1 % Lymph % (Auto) 11.3 % [place] % (Auto) 9.1 % Eos % (Auto) 1.1 % Baso % (Auto) 0.2 % Immature Gran # (Auto) 0.01 (0.00-0.02) K/uL Neut # (Auto) 4.21 (1.4-6.5) K/uL Lymph # (Auto) 0.61 L (1.2-3.4) K/uL [place] # (Auto) 0.49 (0.11-0.59) K/uL Eos # (Auto) 0.06 (0-0.5) K/uL Baso # (Auto) 0.01 (0-0.2) K/uL Absolute Nucleated RBC (0-0) K/uL Nucleated RBC % (auto) % PT (9.0-12.0) Seconds INR (0.9-1.1) POC pH (7.35-7.45) POC pCO2 (35-46) mmHg POC pO2 (80-95) mmHg POC HCO3 (19-24) jerod/L POC Base Excess (-9-1.8) jerod/L POC ABG O2 Sat (90-95) % POC Sodium (135-144) mEq/L Sodium 128 L (136-145) mmol/L POC Potassium (3.3-5.0) mEq/L Potassium 2.4 L* (3.5-5.1) mmol/L POC Chloride (101-112) mEq/L Chloride 85 L (98-107) mmol/L Carbon Dioxide 26 (21-32) mmol/L POC Total CO2 (24-31) mEq/l Anion Gap 17.0 H (3-11) POC Anion Gap (16-25) mmol/L POC BUN (7-18) mg/dl BUN 130 H (7-18) mg/dl Creatinine 5.32 H* D (0.6-1.4) mg/dl POC Creatinine (0.6-1.3) mg/dl Est Cr Clr Drug Dosing 10.9 ml/min Est GFR ( Amer) 10.8 Est GFR (Non-Af Amer) 9.3 BUN/Creatinine Ratio 24.5 H (10-20) Glucose 96 (70-99) mg/dl POC Glucose (70-99) POC Glucose (other) (70-99) mg/dl Calcium 8.6 (8.5-10.1) mg/dl POC Ioniz Calcium Rosaura (1.12-1.32) mmol/l Ionized Calcium (1.12-1.32) mmol/L Magnesium (1.8-2.4) mg/dl Total Bilirubin 4.0 H (0.2-1) mg/dl AST 33 (15-37) U/L ALT 16 (12-78) U/L Alkaline Phosphatase 184 H (45-117) U/L Total Creatine Kinase Cancelled 329 H CK-MB (CK-2) Cancelled 7.1 H CK/CKMB % Calc Cancelled 2.2 Troponin I 0.221 H* (0-0.045) ng/ml NT-Pro-B Natriuret Pep (0-1800) pg/ml Total Protein 8.2 (6.4-8.2) gm/dl Albumin 2.8 L (3.4-5.0) gm/dl Globulin 5.4 H (2.5-4.0) gm/dl Albumin/Globulin Ratio 0.5 L (0.9-2) TSH 7.240 H (0.300-4.500) uIu/ml Urine Color Urine Appearance (Clear) Urine pH (4.5-7.5) Ur Specific [place] (1.000-1.030) Urine Protein (Negative) Urine Glucose (UA) (Negative) Urine Ketones (Negative) Urine Blood (Negative) Urine Nitrite (Negative) Urine Bilirubin (Negative) Urine Urobilinogen (Negative) Ur Leukocyte Esterase (Negative) Urine WBC (Auto) (0-5) /hpf Urine RBC (Auto) (0-4) /hpf U Hyaline Cast (Auto) (0-5) /lpf U Epithel Cells (Auto) (0-5) /lpf Urine Bacteria (Auto) (Negative) Urine Yeast Nasal Screen MRSA (PCR) (Negative) Influenza Type A (PCR) (Neg) Influenza Type B (PCR) (Neg) 06/21/18 06/21/18 06/21/18 Range/Units 07:46 08:08 08:08 WBC (4.8-10.8) K/uL RBC (4.7-6.1) M/uL Hgb (14.0-18.0) g/dL POC Hgb 18.7 H (14.0-18.0) g/dl Hct (42-52) % POC Hct 55 H (42-52) % MCV (80-100) fL MCH (25-34) pg MCHC (32-36) g/dL RDW Std Deviation (36.4-46.3) fL RDW Coeff of Marie (11.5-14.5) % Plt Count (130-400) K/uL MPV (7.4-10.4) fL Immature Gran % (Auto) % Neut % (Auto) % Lymph % (Auto) % [place] % (Auto) % Eos % (Auto) % Baso % (Auto) % Immature Gran # (Auto) (0.00-0.02) K/uL Neut # (Auto) (1.4-6.5) K/uL Lymph # (Auto) (1.2-3.4) K/uL [place] # (Auto) (0.11-0.59) K/uL Eos # (Auto) (0-0.5) K/uL Baso # (Auto) (0-0.2) K/uL Absolute Nucleated RBC (0-0) K/uL Nucleated RBC % (auto) % PT (9.0-12.0) Seconds INR (0.9-1.1) POC pH 7.47 H (7.35-7.45) POC pCO2 33 L (35-46) mmHg POC pO2 54 L (80-95) mmHg POC HCO3 24 (19-24) jerod/L POC Base Excess 1.0 (-9-1.8) jerod/L POC ABG O2 Sat 90.0 (90-95) % POC Sodium 132 L (135-144) mEq/L Sodium (136-145) mmol/L POC Potassium 2.3 L* (3.3-5.0) mEq/L Potassium (3.5-5.1) mmol/L POC Chloride 86 L (101-112) mEq/L Chloride (98-107) mmol/L Carbon Dioxide (21-32) mmol/L POC Total CO2 28 25 (24-31) mEq/l Anion Gap (3-11) POC Anion Gap 20.0 (16-25) mmol/L POC BUN 101 H* (7-18) mg/dl BUN (7-18) mg/dl Creatinine (0.6-1.4) mg/dl POC Creatinine 5.3 H* (0.6-1.3) mg/dl Est Cr Clr Drug Dosing ml/min Est GFR ( Amer) Est GFR (Non-Af Amer) BUN/Creatinine Ratio (10-20) Glucose (70-99) mg/dl POC Glucose (70-99) POC Glucose (other) 96 (70-99) mg/dl Calcium (8.5-10.1) mg/dl POC Ioniz Calcium Rosaura 0.92 L (1.12-1.32) mmol/l Ionized Calcium (1.12-1.32) mmol/L Magnesium (1.8-2.4) mg/dl Total Bilirubin (0.2-1) mg/dl AST (15-37) U/L ALT (12-78) U/L Alkaline Phosphatase (45-117) U/L Total Creatine Kinase CK-MB (CK-2) CK/CKMB % Calc Troponin I (0-0.045) ng/ml NT-Pro-B Natriuret Pep 7537 H (0-1800) pg/ml Total Protein (6.4-8.2) gm/dl Albumin (3.4-5.0) gm/dl Globulin (2.5-4.0) gm/dl Albumin/Globulin Ratio (0.9-2) TSH (0.300-4.500) uIu/ml Urine Color Urine Appearance (Clear) Urine pH (4.5-7.5) Ur Specific [place] (1.000-1.030) Urine Protein (Negative) Urine Glucose (UA) (Negative) Urine Ketones (Negative) Urine Blood (Negative) Urine Nitrite (Negative) Urine Bilirubin (Negative) Urine Urobilinogen (Negative) Ur Leukocyte Esterase (Negative) Urine WBC (Auto) (0-5) /hpf Urine RBC (Auto) (0-4) /hpf U Hyaline Cast (Auto) (0-5) /lpf U Epithel Cells (Auto) (0-5) /lpf Urine Bacteria (Auto) (Negative) Urine Yeast Nasal Screen MRSA (PCR) (Negative) Influenza Type A (PCR) (Neg) Influenza Type B (PCR) (Neg) 06/21/18 06/21/18 06/21/18 Range/Units 08:20 10:15 17:47 WBC (4.8-10.8) K/uL RBC (4.7-6.1) M/uL Hgb (14.0-18.0) g/dL POC Hgb (14.0-18.0) g/dl Hct (42-52) % POC Hct (42-52) % MCV (80-100) fL MCH (25-34) pg MCHC (32-36) g/dL RDW Std Deviation (36.4-46.3) fL RDW Coeff of Marie (11.5-14.5) % Plt Count (130-400) K/uL MPV (7.4-10.4) fL Immature Gran % (Auto) % Neut % (Auto) % Lymph % (Auto) % [place] % (Auto) % Eos % (Auto) % Baso % (Auto) % Immature Gran # (Auto) (0.00-0.02) K/uL Neut # (Auto) (1.4-6.5) K/uL Lymph # (Auto) (1.2-3.4) K/uL [place] # (Auto) (0.11-0.59) K/uL Eos # (Auto) (0-0.5) K/uL Baso # (Auto) (0-0.2) K/uL Absolute Nucleated RBC (0-0) K/uL Nucleated RBC % (auto) % PT (9.0-12.0) Seconds INR (0.9-1.1) POC pH (7.35-7.45) POC pCO2 (35-46) mmHg POC pO2 (80-95) mmHg POC HCO3 (19-24) jerod/L POC Base Excess (-9-1.8) jerod/L POC ABG O2 Sat (90-95) % POC Sodium (135-144) mEq/L Sodium 130 L (136-145) mmol/L POC Potassium (3.3-5.0) mEq/L Potassium 2.1 L* (3.5-5.1) mmol/L POC Chloride (101-112) mEq/L Chloride 91 L (98-107) mmol/L Carbon Dioxide 25 (21-32) mmol/L POC Total CO2 (24-31) mEq/l Anion Gap 14.0 H (3-11) POC Anion Gap (16-25) mmol/L POC BUN (7-18) mg/dl BUN 122 H (7-18) mg/dl Creatinine 4.70 H* D (0.6-1.4) mg/dl POC Creatinine (0.6-1.3) mg/dl Est Cr Clr Drug Dosing 12.3 ml/min Est GFR ( Amer) 12.5 Est GFR (Non-Af Amer) 10.8 BUN/Creatinine Ratio 26.0 H (10-20) Glucose 107 H (70-99) mg/dl POC Glucose 93 (70-99) POC Glucose (other) (70-99) mg/dl Calcium 7.6 L (8.5-10.1) mg/dl POC Ioniz Calcium [place] (1.12-1.32) mmol/l Ionized Calcium (1.12-1.32) mmol/L Magnesium 4.0 H (1.8-2.4) mg/dl Total Bilirubin (0.2-1) mg/dl AST (15-37) U/L ALT (12-78) U/L Alkaline Phosphatase (45-117) U/L Total Creatine Kinase CK-MB (CK-2) CK/CKMB % Calc Troponin I 0.197 H* (0-0.045) ng/ml NT-Pro-B Natriuret Pep (0-1800) pg/ml Total Protein (6.4-8.2) gm/dl Albumin (3.4-5.0) gm/dl Globulin (2.5-4.0) gm/dl Albumin/Globulin Ratio (0.9-2) TSH (0.300-4.500) uIu/ml Urine Color Urine Appearance (Clear) Urine pH (4.5-7.5) Ur Specific [place] (1.000-1.030) Urine Protein (Negative) Urine Glucose (UA) (Negative) Urine Ketones (Negative) Urine Blood (Negative) Urine Nitrite (Negative) Urine Bilirubin (Negative) Urine Urobilinogen (Negative) Ur Leukocyte Esterase (Negative) Urine WBC (Auto) (0-5) /hpf Urine RBC (Auto) (0-4) /hpf U Hyaline Cast (Auto) (0-5) /lpf U Epithel Cells (Auto) (0-5) /lpf Urine Bacteria (Auto) (Negative) Urine Yeast Nasal Screen MRSA (PCR) (Negative) Influenza Type A (PCR) Neg for Influ A (Neg) Influenza Type B (PCR) Neg for Influ B (Neg) 06/21/18 06/21/18 06/21/18 Range/Units 19:29 19:29 19:29 WBC (4.8-10.8) K/uL RBC (4.7-6.1) M/uL Hgb (14.0-18.0) g/dL POC Hgb (14.0-18.0) g/dl Hct (42-52) % POC Hct (42-52) % MCV (80-100) fL MCH (25-34) pg MCHC (32-36) g/dL RDW Std Deviation (36.4-46.3) fL RDW Coeff of Marie (11.5-14.5) % Plt Count (130-400) K/uL MPV (7.4-10.4) fL Immature Gran % (Auto) % Neut % (Auto) % Lymph % (Auto) % [place] % (Auto) % Eos % (Auto) % Baso % (Auto) % Immature Gran # (Auto) (0.00-0.02) K/uL Neut # (Auto) (1.4-6.5) K/uL Lymph # (Auto) (1.2-3.4) K/uL [place] # (Auto) (0.11-0.59) K/uL Eos # (Auto) (0-0.5) K/uL Baso # (Auto) (0-0.2) K/uL Absolute Nucleated RBC (0-0) K/uL Nucleated RBC % (auto) % PT 16.3 H (9.0-12.0) Seconds INR 1.7 H (0.9-1.1) POC pH (7.35-7.45) POC pCO2 (35-46) mmHg POC pO2 (80-95) mmHg POC HCO3 (19-24) jerod/L POC Base Excess (-9-1.8) jerod/L POC ABG O2 Sat (90-95) % POC Sodium (135-144) mEq/L Sodium (136-145) mmol/L POC Potassium (3.3-5.0) mEq/L Potassium 2.8 L D (3.5-5.1) mmol/L POC Chloride (101-112) mEq/L Chloride (98-107) mmol/L Carbon Dioxide (21-32) mmol/L POC Total CO2 (24-31) mEq/l Anion Gap (3-11) POC Anion Gap (16-25) mmol/L POC BUN (7-18) mg/dl BUN (7-18) mg/dl Creatinine (0.6-1.4) mg/dl POC Creatinine (0.6-1.3) mg/dl Est Cr Clr Drug Dosing ml/min Est GFR ( Amer) Est GFR (Non-Af Amer) BUN/Creatinine Ratio (10-20) Glucose (70-99) mg/dl POC Glucose (70-99) POC Glucose (other) (70-99) mg/dl Calcium (8.5-10.1) mg/dl POC Ioniz Calcium [place] (1.12-1.32) mmol/l Ionized Calcium (1.12-1.32) mmol/L Magnesium (1.8-2.4) mg/dl Total Bilirubin (0.2-1) mg/dl AST (15-37) U/L ALT (12-78) U/L Alkaline Phosphatase (45-117) U/L Total Creatine Kinase CK-MB (CK-2) CK/CKMB % Calc Troponin I 0.225 H* (0-0.045) ng/ml NT-Pro-B Natriuret Pep (0-1800) pg/ml Total Protein (6.4-8.2) gm/dl Albumin (3.4-5.0) gm/dl Globulin (2.5-4.0) gm/dl Albumin/Globulin Ratio (0.9-2) TSH (0.300-4.500) uIu/ml Urine Color Urine Appearance (Clear) Urine pH (4.5-7.5) Ur Specific [place] (1.000-1.030) Urine Protein (Negative) Urine Glucose (UA) (Negative) Urine Ketones (Negative) Urine Blood (Negative) Urine Nitrite (Negative) Urine Bilirubin (Negative) Urine Urobilinogen (Negative) Ur Leukocyte Esterase (Negative) Urine WBC (Auto) (0-5) /hpf Urine RBC (Auto) (0-4) /hpf U Hyaline Cast (Auto) (0-5) /lpf U Epithel Cells (Auto) (0-5) /lpf Urine Bacteria (Auto) (Negative) Urine Yeast Nasal Screen MRSA (PCR) (Negative) Influenza Type A (PCR) (Neg) Influenza Type B (PCR) (Neg) 06/21/18 06/21/18 06/21/18 Range/Units 20:38 20:38 Unknown WBC (4.8-10.8) K/uL RBC (4.7-6.1) M/uL Hgb (14.0-18.0) g/dL POC Hgb (14.0-18.0) g/dl Hct (42-52) % POC Hct (42-52) % MCV (80-100) fL MCH (25-34) pg MCHC (32-36) g/dL RDW Std Deviation (36.4-46.3) fL RDW Coeff of Marie (11.5-14.5) % Plt Count (130-400) K/uL MPV (7.4-10.4) fL Immature Gran % (Auto) % Neut % (Auto) % Lymph % (Auto) % [place] % (Auto) % Eos % (Auto) % Baso % (Auto) % Immature Gran # (Auto) (0.00-0.02) K/uL Neut # (Auto) (1.4-6.5) K/uL Lymph # (Auto) (1.2-3.4) K/uL [place] # (Auto) (0.11-0.59) K/uL Eos # (Auto) (0-0.5) K/uL Baso # (Auto) (0-0.2) K/uL Absolute Nucleated RBC (0-0) K/uL Nucleated RBC % (auto) % PT (9.0-12.0) Seconds INR (0.9-1.1) POC pH (7.35-7.45) POC pCO2 (35-46) mmHg POC pO2 (80-95) mmHg POC HCO3 (19-24) jerod/L POC Base Excess (-9-1.8) jerod/L POC ABG O2 Sat (90-95) % POC Sodium (135-144) mEq/L Sodium 127 L (136-145) mmol/L POC Potassium (3.3-5.0) mEq/L Potassium (3.5-5.1) mmol/L POC Chloride (101-112) mEq/L Chloride 89 L (98-107) mmol/L Carbon Dioxide 22 (21-32) mmol/L POC Total CO2 (24-31) mEq/l Anion Gap 16.0 H (3-11) POC Anion Gap (16-25) mmol/L POC BUN (7-18) mg/dl BUN 137 H (7-18) mg/dl Creatinine 5.12 H* D (0.6-1.4) mg/dl POC Creatinine (0.6-1.3) mg/dl Est Cr Clr Drug Dosing 11.3 ml/min Est GFR ( Amer) 11.3 Est GFR (Non-Af Amer) 9.8 BUN/Creatinine Ratio 26.7 H (10-20) Glucose 96 (70-99) mg/dl POC Glucose (70-99) POC Glucose (other) (70-99) mg/dl Calcium 8.3 L (8.5-10.1) mg/dl POC Ioniz Calcium [place] (1.12-1.32) mmol/l Ionized Calcium 0.86 L (1.12-1.32) mmol/L Magnesium (1.8-2.4) mg/dl Total Bilirubin (0.2-1) mg/dl AST (15-37) U/L ALT (12-78) U/L Alkaline Phosphatase (45-117) U/L Total Creatine Kinase CK-MB (CK-2) CK/CKMB % Calc Troponin I (0-0.045) ng/ml NT-Pro-B Natriuret Pep (0-1800) pg/ml Total Protein (6.4-8.2) gm/dl Albumin (3.4-5.0) gm/dl Globulin (2.5-4.0) gm/dl Albumin/Globulin Ratio (0.9-2) TSH (0.300-4.500) uIu/ml Urine Color Urine Appearance (Clear) Urine pH (4.5-7.5) Ur Specific [place] (1.000-1.030) Urine Protein (Negative) Urine Glucose (UA) (Negative) Urine Ketones (Negative) Urine Blood (Negative) Urine Nitrite (Negative) Urine Bilirubin (Negative) Urine Urobilinogen (Negative) Ur Leukocyte Esterase (Negative) Urine WBC (Auto) (0-5) /hpf Urine RBC (Auto) (0-4) /hpf U Hyaline Cast (Auto) (0-5) /lpf U Epithel Cells (Auto) (0-5) /lpf Urine Bacteria (Auto) (Negative) Urine Yeast Nasal Screen MRSA (PCR) Positive A (Negative) Influenza Type A (PCR) (Neg) Influenza Type B (PCR) (Neg) 06/21/18 06/22/18 06/22/18 Range/Units Unknown 00:40 04:46 WBC 7.06 (4.8-10.8) K/uL RBC 4.85 (4.7-6.1) M/uL Hgb 15.3 (14.0-18.0) g/dL POC Hgb (14.0-18.0) g/dl Hct 43.9 (42-52) % POC Hct (42-52) % MCV 90.5 (80-100) fL MCH 31.5 (25-34) pg MCHC 34.9 (32-36) g/dL RDW Std Deviation 60.0 H (36.4-46.3) fL RDW Coeff of Marie 18.4 H (11.5-14.5) % Plt Count 159 (130-400) K/uL MPV 10.7 H (7.4-10.4) fL Immature Gran % (Auto) % Neut % (Auto) % Lymph % (Auto) % [place] % (Auto) % Eos % (Auto) % Baso % (Auto) % Immature Gran # (Auto) (0.00-0.02) K/uL Neut # (Auto) (1.4-6.5) K/uL Lymph # (Auto) (1.2-3.4) K/uL [place] # (Auto) (0.11-0.59) K/uL Eos # (Auto) (0-0.5) K/uL Baso # (Auto) (0-0.2) K/uL Absolute Nucleated RBC 0.02 H (0-0) K/uL Nucleated RBC % (auto) 0.3 % PT (9.0-12.0) Seconds INR (0.9-1.1) POC pH (7.35-7.45) POC pCO2 (35-46) mmHg POC pO2 (80-95) mmHg POC HCO3 (19-24) jerod/L POC Base Excess (-9-1.8) jerod/L POC ABG O2 Sat (90-95) % POC Sodium (135-144) mEq/L Sodium (136-145) mmol/L POC Potassium (3.3-5.0) mEq/L Potassium (3.5-5.1) mmol/L POC Chloride (101-112) mEq/L Chloride (98-107) mmol/L Carbon Dioxide (21-32) mmol/L POC Total CO2 (24-31) mEq/l Anion Gap (3-11) POC Anion Gap (16-25) mmol/L POC BUN (7-18) mg/dl BUN (7-18) mg/dl Creatinine (0.6-1.4) mg/dl POC Creatinine (0.6-1.3) mg/dl Est Cr Clr Drug Dosing ml/min Est GFR ( Amer) Est GFR (Non-Af Amer) BUN/Creatinine Ratio (10-20) Glucose (70-99) mg/dl POC Glucose 97 (70-99) POC Glucose (other) (70-99) mg/dl Calcium (8.5-10.1) mg/dl POC Ioniz Calcium [place] (1.12-1.32) mmol/l Ionized Calcium (1.12-1.32) mmol/L Magnesium (1.8-2.4) mg/dl Total Bilirubin (0.2-1) mg/dl AST (15-37) U/L ALT (12-78) U/L Alkaline Phosphatase (45-117) U/L Total Creatine Kinase CK-MB (CK-2) CK/CKMB % Calc Troponin I (0-0.045) ng/ml NT-Pro-B Natriuret Pep (0-1800) pg/ml Total Protein (6.4-8.2) gm/dl Albumin (3.4-5.0) gm/dl Globulin (2.5-4.0) gm/dl Albumin/Globulin Ratio (0.9-2) TSH (0.300-4.500) uIu/ml Urine Color [place] Urine Appearance Turbid H (Clear) Urine pH 5.0 (4.5-7.5) Ur Specific [place] 1.021 (1.000-1.030) Urine Protein 2+ H (Negative) Urine Glucose (UA) Negative (Negative) Urine Ketones Negative (Negative) Urine Blood 3+ H (Negative) Urine Nitrite Positive H (Negative) Urine Bilirubin Negative (Negative) Urine Urobilinogen Negative (Negative) Ur Leukocyte Esterase 3+ H (Negative) Urine WBC (Auto) >30 H (0-5) /hpf Urine RBC (Auto) >30 H (0-4) /hpf U Hyaline Cast (Auto) 0 (0-5) /lpf U Epithel Cells (Auto) 10-20 H (0-5) /lpf Urine Bacteria (Auto) Negative (Negative) Urine Yeast Not Reportable Nasal Screen MRSA (PCR) (Negative) Influenza Type A (PCR) (Neg) Influenza Type B (PCR) (Neg) 06/22/18 06/22/18 Range/Units 04:46 04:46 WBC (4.8-10.8) K/uL RBC (4.7-6.1) M/uL Hgb (14.0-18.0) g/dL POC Hgb (14.0-18.0) g/dl Hct (42-52) % POC Hct (42-52) % MCV (80-100) fL MCH (25-34) pg MCHC (32-36) g/dL RDW Std Deviation (36.4-46.3) fL RDW Coeff of Marie (11.5-14.5) % Plt Count (130-400) K/uL MPV (7.4-10.4) fL Immature Gran % (Auto) % Neut % (Auto) % Lymph % (Auto) % [place] % (Auto) % Eos % (Auto) % Baso % (Auto) % Immature Gran # (Auto) (0.00-0.02) K/uL Neut # (Auto) (1.4-6.5) K/uL Lymph # (Auto) (1.2-3.4) K/uL [place] # (Auto) (0.11-0.59) K/uL Eos # (Auto) (0-0.5) K/uL Baso # (Auto) (0-0.2) K/uL Absolute Nucleated RBC (0-0) K/uL Nucleated RBC % (auto) % PT (9.0-12.0) Seconds INR (0.9-1.1) POC pH (7.35-7.45) POC pCO2 (35-46) mmHg POC pO2 (80-95) mmHg POC HCO3 (19-24) jerod/L POC Base Excess (-9-1.8) jerod/L POC ABG O2 Sat (90-95) % POC Sodium (135-144) mEq/L Sodium 127 L (136-145) mmol/L POC Potassium (3.3-5.0) mEq/L Potassium 2.9 L (3.5-5.1) mmol/L POC Chloride (101-112) mEq/L Chloride 90 L (98-107) mmol/L Carbon Dioxide 23 (21-32) mmol/L POC Total CO2 (24-31) mEq/l Anion Gap 14.0 H (3-11) POC Anion Gap (16-25) mmol/L POC BUN (7-18) mg/dl BUN 134 H (7-18) mg/dl Creatinine 4.98 H* (0.6-1.4) mg/dl POC Creatinine (0.6-1.3) mg/dl Est Cr Clr Drug Dosing 11.6 ml/min Est GFR ( Amer) 11.7 Est GFR (Non-Af Amer) 10.1 BUN/Creatinine Ratio 27.8 H (10-20) Glucose 109 H (70-99) mg/dl POC Glucose (70-99) POC Glucose (other) (70-99) mg/dl Calcium 8.3 L (8.5-10.1) mg/dl POC Ioniz Calcium [place] (1.12-1.32) mmol/l Ionized Calcium 0.99 L (1.12-1.32) mmol/L Magnesium (1.8-2.4) mg/dl Total Bilirubin (0.2-1) mg/dl AST (15-37) U/L ALT (12-78) U/L Alkaline Phosphatase (45-117) U/L Total Creatine Kinase CK-MB (CK-2) CK/CKMB % Calc Troponin I (0-0.045) ng/ml NT-Pro-B Natriuret Pep (0-1800) pg/ml Total Protein (6.4-8.2) gm/dl Albumin (3.4-5.0) gm/dl Globulin (2.5-4.0) gm/dl Albumin/Globulin Ratio (0.9-2) TSH (0.300-4.500) uIu/ml Urine Color Urine Appearance (Clear) Urine pH (4.5-7.5) Ur Specific [place] (1.000-1.030) Urine Protein (Negative) Urine Glucose (UA) (Negative) Urine Ketones (Negative) Urine Blood (Negative) Urine Nitrite (Negative) Urine Bilirubin (Negative) Urine Urobilinogen (Negative) Ur Leukocyte Esterase (Negative) Urine WBC (Auto) (0-5) /hpf Urine RBC (Auto) (0-4) /hpf U Hyaline Cast (Auto) (0-5) /lpf U Epithel Cells (Auto) (0-5) /lpf Urine Bacteria (Auto) (Negative) Urine Yeast Nasal Screen MRSA (PCR) (Negative) Influenza Type A (PCR) (Neg) Influenza Type B (PCR) (Neg) Imaging Data Radiologist's Impression: Radiology results as stated below per my review and the radiologist's interpretation: XR chest 1V portable CLINICAL HISTORY: weakness dyspnea COMPARISON STUDY: 09/14/2017 FINDINGS: Prior median sternotomy and valve replacement. Mild stable cardiomegaly. Prominence of pulmonary vasculature also considered chronic. IMPRESSION: Chronic and postoperative change. No acute process. The above report was generated using voice recognition software. It may contain grammatical, syntax or spelling errors. Electronically signed by: Camden Bundy M.D. 06/21/2018 7:16 AM ECG Data Attestation: I personally reviewed and interpreted this ECG as follows: Indication: weakness Rate (beats per minute): 62 Rhythm: sinus rhythm Findings: + 1st degree AV block, + RBBB and + T-wave inversion (inferior and lateral leads) Blood Pressure Blood Pressure Findings: Low blood pressure Blood Pressure Disposition: further management by hospitalist ADY Narrative This is an 82-year-old male who presents emergency department complaining of acute renal failure. Patient was sent in by his primary care physician's office. Upon arrival to the emergency department the patient is hypotensive and hypoxic. Due to the degree of hypoxia the patient was placed on BiPAP. He was given multiple boluses of fluid to correct his hypotension and renal failure. He was started on antibiotics. I discussed the case with both the ICU as well as the hospitalist who agreed to admit the patient. Impression & Plan Acute renal failure, Hypoxia, Hypokalemia Critical Care Time I have personally spent greater than 90 minutes of critical care time in the direct management of this patient. This includes bedside care, interpretation of diagnostic studies, and testing, discussion with consultants, patient, and family members, and other required patient management activities. This 90 minutes is in excess of all separately billable procedures. Critical Care Time: Yes Total Critical Care Time: 90 Discharge Plan Visit Data *Final* Discharge Date/Time: 06/21/18 09:40 Chief Complaint: Abnormal Labs/Diagnostic Testing ED Provider: Josh Snyder Discharge Problem: Acute renal failure, Hypoxia, Hypokalemia Patient Disposition: Admitted As Inpatient Discharge Instructions Interventions: ED Discharge Assessment Last Done: 06/21/18 09:40 The scribe's documentation has been prepared under my direction and personally reviewed by me in its entirety. I confirm that the note above accurately reflects all work, treatment, procedures, and medical decision making performed by me.
--- NOTE | 2018-06-22 08:06 | Nephrology Progress Note ---
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: -grim prognosis with multiorgan failure and pressor dependent shock, volume overload, critical electrolyte disorders, oligouria -would not offer dialysis unless he changes to full code; even then not clear to me that we can stabilize him clinically -await palliative care input -serial bmp -diuresis as below to improve renal perfusion -continue efforts to keep MAP > 60 -solomon is in w/ slow drainage -- oligouria likely secondary to prostatism and primarily to severe renal failure -replete K and Ca (3) Acute on chronic respiratory failure with hypoxia: per critical care; at this point, short of intubation, his care will move between high flow 02 and bipap; blood gas 06/21 w/ severe hypoxia (4) Acute on chronic right heart failure: needs aggressive diuresis but too sick to tolerate w/ current hemodynamics -cont dobutamine -started lasix 60 mg IV tid after d/w cardiology Subjective tired but essentially still w/o complaint. remains NPO. remains essentially without complaint. still on dobutamine 5 mcg and NE 0.14 mcg and BP a slight bit better. palliative to see this am. he again states does not want more invasive care such as intubation or other measures. remains oliguric no chest pain or palpitations; significant edema but not bothering him. no sob or cough provided stays still. no rash. no n/v/abd pain. no focal numbness/ weakness. no acute visual changes/ongoing dry mouth. not hungry/ no f Physical Exam 2 Vital Signs (Past 24 Hours): Last Vital Signs Temp 36.4 C L 06/22/18 00:01 Pulse 85 06/22/18 06:30 Resp 16 06/22/18 06:30 BP 98/57 L 06/22/18 06:30 Pulse Ox 90 06/22/18 06:30 Constitutional: well developed, + ill appearing and + malnourished sitting in bed, dosing but wakens fully on high dante 02 Eyes: EOM intact bilaterally ENMT: Ears: no external ear abnormality Nose: no external nose abnormality Mouth: + dry oral mucous membranes and + poor dentition Neck: no nuchal rigidity Respiratory: normal respiratory effort Auscultation: + diminished lung sounds (w/ prolonged exp phase) Cardiovascular: Rate/Rhythm: regular rate and regular rhythm Extremities: + edema (3+ BL thigh edema, less peripherally); + abnormal capillary refill (w/ less cyanosis today) Gastrointestinal (Abdomen): Inspection/Auscultation: normal bowel sounds Percussion/Palpation: abdomen soft; abdomen nontender Musculoskeletal: Head/Neck/Chest: neck supple Extremities: + limited ROM of extremities Skin: no rashes, warm and dry + turgor decreased and + ecchymosis ( scattered/ diffuse) Trauma: + contusion (R brow) Neurologic: awake Psychiatric: Orientation: alert, oriented x 3 and cooperative Apperance: appropriately groomed Eye Contact: good eye contact Speech: normal rate/ rhythm/volume of speech (but limited amount of discussion today) Cognition: recent memory grossly intact and remote memory grossly intact Estimated Intelligence: average estimated intelligence Insight: good insight Judgement: good judgement Genitourinary: solomon w/ scant dark urine Results & Data Laboratory Results Abnormal lab results 06/21/18 06/21/18 06/21/18 Range/Units 10:15 19:29 19:29 RDW Std Deviation (36.4-46.3) fL RDW Coeff of Marie (11.5-14.5) % MPV (7.4-10.4) fL Absolute Nucleated RBC (0-0) K/uL PT 16.3 H (9.0-12.0) Seconds INR 1.7 H (0.9-1.1) Sodium 130 L (136-145) mmol/L Potassium 2.1 L* (3.5-5.1) mmol/L Chloride 91 L (98-107) mmol/L Anion Gap 14.0 H (3-11) BUN 122 H (7-18) mg/dl Creatinine 4.70 H* D (0.6-1.4) mg/dl BUN/Creatinine Ratio 26.0 H (10-20) Glucose 107 H (70-99) mg/dl Calcium 7.6 L (8.5-10.1) mg/dl Ionized Calcium (1.12-1.32) mmol/L Magnesium 4.0 H (1.8-2.4) mg/dl Troponin I 0.197 H* 0.225 H* (0-0.045) ng/ml Urine Appearance (Clear) Urine Protein (Negative) Urine Blood (Negative) Urine Nitrite (Negative) Ur Leukocyte Esterase (Negative) Urine WBC (Auto) (0-5) /hpf Urine RBC (Auto) (0-4) /hpf U Epithel Cells (Auto) (0-5) /lpf Nasal Screen MRSA (PCR) (Negative) 06/21/18 06/21/18 06/21/18 Range/Units 19:29 20:38 20:38 RDW Std Deviation (36.4-46.3) fL RDW Coeff of Marie (11.5-14.5) % MPV (7.4-10.4) fL Absolute Nucleated RBC (0-0) K/uL PT (9.0-12.0) Seconds INR (0.9-1.1) Sodium 127 L (136-145) mmol/L Potassium 2.8 L D (3.5-5.1) mmol/L Chloride 89 L (98-107) mmol/L Anion Gap 16.0 H (3-11) BUN 137 H (7-18) mg/dl Creatinine 5.12 H* D (0.6-1.4) mg/dl BUN/Creatinine Ratio 26.7 H (10-20) Glucose (70-99) mg/dl Calcium 8.3 L (8.5-10.1) mg/dl Ionized Calcium 0.86 L (1.12-1.32) mmol/L Magnesium (1.8-2.4) mg/dl Troponin I (0-0.045) ng/ml Urine Appearance (Clear) Urine Protein (Negative) Urine Blood (Negative) Urine Nitrite (Negative) Ur Leukocyte Esterase (Negative) Urine WBC (Auto) (0-5) /hpf Urine RBC (Auto) (0-4) /hpf U Epithel Cells (Auto) (0-5) /lpf Nasal Screen MRSA (PCR) (Negative) 06/21/18 06/21/18 06/22/18 Range/Units Unknown Unknown 04:46 RDW Std Deviation 60.0 H (36.4-46.3) fL RDW Coeff of Marie 18.4 H (11.5-14.5) % MPV 10.7 H (7.4-10.4) fL Absolute Nucleated RBC 0.02 H (0-0) K/uL PT (9.0-12.0) Seconds INR (0.9-1.1) Sodium (136-145) mmol/L Potassium (3.5-5.1) mmol/L Chloride (98-107) mmol/L Anion Gap (3-11) BUN (7-18) mg/dl Creatinine (0.6-1.4) mg/dl BUN/Creatinine Ratio (10-20) Glucose (70-99) mg/dl Calcium (8.5-10.1) mg/dl Ionized Calcium (1.12-1.32) mmol/L Magnesium (1.8-2.4) mg/dl Troponin I (0-0.045) ng/ml Urine Appearance Turbid H (Clear) Urine Protein 2+ H (Negative) Urine Blood 3+ H (Negative) Urine Nitrite Positive H (Negative) Ur Leukocyte Esterase 3+ H (Negative) Urine WBC (Auto) >30 H (0-5) /hpf Urine RBC (Auto) >30 H (0-4) /hpf U Epithel Cells (Auto) 10-20 H (0-5) /lpf Nasal Screen MRSA (PCR) Positive A (Negative) 06/22/18 06/22/18 Range/Units 04:46 04:46 RDW Std Deviation (36.4-46.3) fL RDW Coeff of Marie (11.5-14.5) % MPV (7.4-10.4) fL Absolute Nucleated RBC (0-0) K/uL PT (9.0-12.0) Seconds INR (0.9-1.1) Sodium 127 L (136-145) mmol/L Potassium 2.9 L (3.5-5.1) mmol/L Chloride 90 L (98-107) mmol/L Anion Gap 14.0 H (3-11) BUN 134 H (7-18) mg/dl Creatinine 4.98 H* (0.6-1.4) mg/dl BUN/Creatinine Ratio 27.8 H (10-20) Glucose 109 H (70-99) mg/dl Calcium 8.3 L (8.5-10.1) mg/dl Ionized Calcium 0.99 L (1.12-1.32) mmol/L Magnesium (1.8-2.4) mg/dl Troponin I (0-0.045) ng/ml Urine Appearance (Clear) Urine Protein (Negative) Urine Blood (Negative) Urine Nitrite (Negative) Ur Leukocyte Esterase (Negative) Urine WBC (Auto) (0-5) /hpf Urine RBC (Auto) (0-4) /hpf U Epithel Cells (Auto) (0-5) /lpf Nasal Screen MRSA (PCR) (Negative) _ (1) Acute on chronic renal failure Acute renal failure type: unspecified Chronic kidney disease stage: stage 4 ( severe) Qualified Code(s): N17.9 - Acute kidney failure, unspecified; N18.4 - Chronic kidney disease, stage 4 (severe)
[2018-06-22] MEDS ORDERED: FUROSEMIDE 60 MG in SYRINGE 0 ML IV SCH (08:45)
[2018-06-22] MEDS: FUROSEMIDE 60 MG in SYRINGE 0 ML IV SCH ×2 (08:49→15:03)
[2018-06-22] MEDS: DOBUTamine / D5W 500 MG/250 ML BAG IV SCH (08:49)
[2018-06-22] MEDS ORDERED: ASPIRIN 81 MG ECTAB PO SCH (09:00)
[2018-06-22] MEDS ORDERED: ATORVASTATIN 40 MG TAB PO SCH (09:00)
[2018-06-22] MEDS ORDERED: TAMSULOSIN HCL 0.4 MG CAP PO SCH (09:00)
[2018-06-22] MEDS ORDERED: METOPROLOL SUCC 25MG EXT REL TAB PO SCH (09:00)
[2018-06-22] MEDS ORDERED: CALCIUM GLUCONATE 10% 2,000 MG in SODIUM CHLORIDE 0.9% 50 ML IV ONE ×2 (09:15→17:30)
--- NOTE | 2018-06-22 09:16 | Cardiology Progress Note ---
Date of Service June 22, 2018 Assessment & Plan (1) Acute on chronic right heart failure: He is significantly hypervolemic. Suspect that he has very low cardiac output given his right heart failure, which is likely causing his acute on chronic renal insufficiency. We discussed today the fact that he may or may not improve. His renal function has not improved despite I inotropic support and pressor support. Agree with palliative care consult. Very poor prognosis. Recommend IV diuretic therapy. This was discussed with Dr. Trejo of Nephrology. She agreed and has written for Lasix 60 mg IV t.i.d.. This can be further titrated if necessary. He expressed to me this morning that he is not interested in dialysis. Potassium management has been managed by Nephrology. (2) Hypotension: Blood pressure has improved on anatrophic support and pressor support. (3) Elevated troponin: Likely secondary to hypoxia and hypotension in the setting of acute kidney injury with demand ischemia. No ischemic evaluation is recommended. (4) Acute on chronic respiratory failure with hypoxia: He is significantly hypervolemic. Recommend diuretic therapy as above. Could also consider a dose of IV Diuril if he does not diurese with Lasix as above. Would try to achieve negative net fluid balance today. (5) CAD (coronary artery disease): No angina. Continue aspirin 81 mg daily. Beta-niru has been discontinued secondary to hypotension. (6) Pulmonary HTN: He has long-standing pulmonary hypertension since at least 2010. He had declined further evaluation in the past. Right heart catheterization at this time will not likely change his outcome. Recommend supportive care. Disposition: Very poor prognosis which was discussed with him today. Agree with palliative care consult. Cardiology will continue to follow. 45 minutes critical care time spent, including discussing with Nephrology, counseling patient, and managing diuretic therapy with Nephrology. Subjective He denies shortness of breath but is on high-flow nasal cannula. He is thirsty. He denies chest pain, syncope, near-syncope, palpitations. He expressed to me today that he told his family that this was �the end of the line.� We had a long discussion today regarding his overall poor prognosis and that his kidney function may or may not improve. He does not want aggressive measures and expressed that he is not interested in hemodialysis. Pad of care consultation is pending. Review of systems: As above. Physical Exam 2 Vital Signs (Past 24 Hours): Last Vital Signs Temp 36.4 C L 06/22/18 00:01 Pulse 85 06/22/18 06:30 Resp 16 06/22/18 06:30 BP 98/57 L 06/22/18 06:30 Pulse Ox 90 06/22/18 06:30 Intake & Output 06/20/18 06/21/18 06/22/18 06/23/18 06:59 06:59 06:59 06:59 Intake Total 2962.737 / 2962.73 7 22.733 / 22.733 Output Total 300 / 300 45 / 45 Balance 2662.737 / 2662.73 7 -22.267 / -22.267 Weight 84.2 kg Physical Exam: Gen.: No acute distress. Alert and oriented. HEENT: Ecchymosis around the right orbit. Neck: Severely engorged jugular veins to the mandible. Cardiac: PMI was nonpalpable . No ventricular heave. Regular. Normal S1-S2. 1/ 6 systolic murmur. No rubs, or gallops. Pulmonary: Clear to auscultation bilaterally without wheezes, rales, or rhonchi. Abdomen: Soft, nontender, nondistended, with normoactive bowel sounds. No bruits noted. 1+ pitting edema. Extremities: 2+ radial pulses bilaterally. 2+ posterior tibialis pulses bilaterally. 2+ tense pitting edema to the hips bilaterally. No cyanosis. Psychiatric: Affect appears appropriate. Results & Data Laboratory Results Laboratory Results - last 24 hr 06/21/18 06/21/18 06/21/18 10:15 17:47 19:29 WBC RBC Hgb Hct MCV MCH MCHC RDW Std Deviation RDW Coeff of Marie Plt Count MPV Absolute Nucleated RBC Nucleated RBC % (auto) PT INR Sodium 130 L Potassium 2.1 L* Chloride 91 L Carbon Dioxide 25 Anion Gap 14.0 H BUN 122 H Creatinine 4.70 H* D Est Cr Clr Drug Dosing 12.3 Est GFR ( Amer) 12.5 Est GFR (Non-Af Amer) 10.8 BUN/Creatinine Ratio 26.0 H Glucose 107 H POC Glucose 93 Calcium 7.6 L Ionized Calcium Magnesium 4.0 H Troponin I 0.197 H* 0.225 H* Urine Color Urine Appearance Urine pH Ur Specific Holt Urine Protein Urine Glucose (UA) Urine Ketones Urine Blood Urine Nitrite Urine Bilirubin Urine Urobilinogen Ur Leukocyte Esterase Urine WBC (Auto) Urine RBC (Auto) U Hyaline Cast (Auto) U Epithel Cells (Auto) Urine Bacteria (Auto) Urine Yeast Nasal Screen MRSA (PCR) 06/21/18 06/21/18 06/21/18 19:29 19:29 20:38 WBC RBC Hgb Hct MCV MCH MCHC RDW Std Deviation RDW Coeff of Marie Plt Count MPV Absolute Nucleated RBC Nucleated RBC % (auto) PT 16.3 H INR 1.7 H Sodium 127 L Potassium 2.8 L D Chloride 89 L Carbon Dioxide 22 Anion Gap 16.0 H BUN 137 H Creatinine 5.12 H* D Est Cr Clr Drug Dosing 11.3 Est GFR ( Amer) 11.3 Est GFR (Non-Af Amer) 9.8 BUN/Creatinine Ratio 26.7 H Glucose 96 POC Glucose Calcium 8.3 L Ionized Calcium Magnesium Troponin I Urine Color Urine Appearance Urine pH Ur Specific Holt Urine Protein Urine Glucose (UA) Urine Ketones Urine Blood Urine Nitrite Urine Bilirubin Urine Urobilinogen Ur Leukocyte Esterase Urine WBC (Auto) Urine RBC (Auto) U Hyaline Cast (Auto) U Epithel Cells (Auto) Urine Bacteria (Auto) Urine Yeast Nasal Screen MRSA (PCR) 06/21/18 06/21/18 06/21/18 20:38 Unknown Unknown WBC RBC Hgb Hct MCV MCH MCHC RDW Std Deviation RDW Coeff of Marie Plt Count MPV Absolute Nucleated RBC Nucleated RBC % (auto) PT INR Sodium Potassium Chloride Carbon Dioxide Anion Gap BUN Creatinine Est Cr Clr Drug Dosing Est GFR ( Amer) Est GFR (Non-Af Amer) BUN/Creatinine Ratio Glucose POC Glucose Calcium Ionized Calcium 0.86 L Magnesium Troponin I Urine Color [place] Urine Appearance Turbid H Urine pH 5.0 Ur Specific Holt 1.021 Urine Protein 2+ H Urine Glucose (UA) Negative Urine Ketones Negative Urine Blood 3+ H Urine Nitrite Positive H Urine Bilirubin Negative Urine Urobilinogen Negative Ur Leukocyte Esterase 3+ H Urine WBC (Auto) >30 H Urine RBC (Auto) >30 H U Hyaline Cast (Auto) 0 U Epithel Cells (Auto) 10-20 H Urine Bacteria (Auto) Negative Urine Yeast Not Reportable Nasal Screen MRSA (PCR) Positive A 06/22/18 06/22/18 06/22/18 00:40 04:46 04:46 WBC 7.06 RBC 4.85 Hgb 15.3 Hct 43.9 MCV 90.5 MCH 31.5 MCHC 34.9 RDW Std Deviation 60.0 H RDW Coeff of Marie 18.4 H Plt Count 159 MPV 10.7 H Absolute Nucleated RBC 0.02 H Nucleated RBC % (auto) 0.3 PT INR Sodium 127 L Potassium 2.9 L Chloride 90 L Carbon Dioxide 23 Anion Gap 14.0 H BUN 134 H Creatinine 4.98 H* Est Cr Clr Drug Dosing 11.6 Est GFR ( Amer) 11.7 Est GFR (Non-Af Amer) 10.1 BUN/Creatinine Ratio 27.8 H Glucose 109 H POC Glucose 97 Calcium 8.3 L Ionized Calcium Magnesium Troponin I Urine Color Urine Appearance Urine pH Ur Specific Holt Urine Protein Urine Glucose (UA) Urine Ketones Urine Blood Urine Nitrite Urine Bilirubin Urine Urobilinogen Ur Leukocyte Esterase Urine WBC (Auto) Urine RBC (Auto) U Hyaline Cast (Auto) U Epithel Cells (Auto) Urine Bacteria (Auto) Urine Yeast Nasal Screen MRSA (PCR) 06/22/18 04:46 WBC RBC Hgb Hct MCV MCH MCHC RDW Std Deviation RDW Coeff of Marie Plt Count MPV Absolute Nucleated RBC Nucleated RBC % (auto) PT INR Sodium Potassium Chloride Carbon Dioxide Anion Gap BUN Creatinine Est Cr Clr Drug Dosing Est GFR ( Amer) Est GFR (Non-Af Amer) BUN/Creatinine Ratio Glucose POC Glucose Calcium Ionized Calcium 0.99 L Magnesium Troponin I Urine Color Urine Appearance Urine pH Ur Specific Holt Urine Protein Urine Glucose (UA) Urine Ketones Urine Blood Urine Nitrite Urine Bilirubin Urine Urobilinogen Ur Leukocyte Esterase Urine WBC (Auto) Urine RBC (Auto) U Hyaline Cast (Auto) U Epithel Cells (Auto) Urine Bacteria (Auto) Urine Yeast Nasal Screen MRSA (PCR) Diagnostic Findings Echo 06/21/2018: Normal LV size with low normal systolic function. EF 50-55%. Severely dilated RV. Moderate . Moderate TR. Telemetry personally reviewed: No arrhythmia. Sinus rhythm. PVCs. Medications Administered Current Inpatient Medications Aspirin (Ecotrin Ectab) 81 mg PO DAILY [facility] Stop: 07/22/18 08:59 Last Admin: 06/22/18 08:49 Dose: Not Given Atorvastatin Calcium (Lipitor) 40 mg PO DAILY [facility] Stop: 07/22/18 08:59 Last Admin: 06/22/18 08:50 Dose: Not Given Heparin Sodium (Porcine) (Heparin Sodium (Porcine)) 5,000 units SQ Q8 STACY Stop: 07/21/18 21:59 Last Admin: 06/22/18 06:12 Dose: 5,000 units Norepinephrine Bitartrate 8 mg (/ Dextrose) 508 mls @ 43.95 mls/hr IV .[id number] STACY; Protocol Stop: 07/21/18 12:14 Last Titration: 06/22/18 06:59 Dose: 0.14 mcg/kg/min, 44 mls/hr Dobutamine HCl/Dextrose (Dobutamine / D5w) 500 mg in 250 mls @ 12.36 mls/hr IV .[id number] STACY; Protocol Stop: 07/21/18 12:27 Last Admin: 06/22/18 08:49 Dose: 5 mcg/kg/min, 12.4 mls/hr Furosemide 60 mg/ Syringe 6 mls @ 4 mls/min IV TID STACY Stop: 07/22/18 08:59 Last Admin: 06/22/18 08:49 Dose: 4 mls/min Potassium Chloride (K Bernardo / Wtr) 10 meq in 100 mls @ 100 mls/hr IV Q1H STACY Stop: 06/22/18 10:59 Last Admin: 06/22/18 08:58 Dose: 100 mls/hr Potassium Chloride (K Bernardo / Wtr) 10 meq in 100 mls @ 100 mls/hr IV Q1H STA Stop: 06/22/18 10:03 Lidocaine HCl (Xylocaine Jely 2%) 0 ml EXT UD PRN PRN Reason: Pain Stop: 07/21/18 11:11 Miscellaneous (Icu Protocol For Hyperglycemia) 1 ea N/A PRN PRN; Protocol PRN Reason: Hyperglycemia Protocol Stop: 06/23/18 10:05
--- NOTE | 2018-06-22 09:31 | Palliative Care Consultation ---
Date of Consultation June 22, 2018 Assessment & Plan (1) Goals of care, counseling/discussion: -82 year old male with complicated PMH including CAD, Pulmonary HTN, CHF, HTN, dyslipidemia, chronic right CHF, cor pulmonale, aortic regurg, CKD stage IV , CABG, MVR, and others, presented from his scoop filler's office with acute renal failure and hypokalemia. In ED, blood pressure in the 70s, oxygen saturations on room air in 70s. He was placed on bipap with 100% FiO2. Echo reveals severely dilated right ventricle and EF 50-55%. He is requiring pressors and high-flow nasal cannula in the ICU. He is in severe right sided heart failure with end-stage heart disease. Patient has been nonadherent to medical plan for many years-- did not wear oxygen at home, did not take pills, etc. Nephrology is following and trying to manage acute renal failure, patient would not want dialysis nor would he be a good candidate. When patient was presented with options for PA catheter, intubation, and full treatment, he did not think he wanted to go through with all of that. Palliative care is consulted to establish goals of care. -I met with the patient, his daughter and son-in-law in ICU this morning. Patient states that he knows he is dying. Patient does NOT want aggressive treatment or escalation in care. He does not want central line placed, PA catheter, dialysis, etc. -Even with escalated care, patient would essentially need heart transplant which he is not a candidate for. Patient and family agreed. Patient verbalized understanding that without escalating care, he will likely in the near future. Patient stated he is ok with that. -Waiting for all family to be here (another daughter coming from [facility]), then will likely transition to comfort measures only. Given patient's increasing need for levophed and still on dobutamine gtt, there will not be an effective weaning process to withdraw care. Likely what will happen is discontinue all pressors and active treatment and just continue with comfort medications such as morphine. -When comfort measures are started (if this is what's decided), would recommend morphine 2mg IV Q1h PRN pain or SOB/air hunger. Use atropine 1% oph soln 4 drops SL Q1h PRN secretions as well. Can always increase morphine if needed. -Patient's family is aware that he could pass away at any time given how sick he is. The plan is to continue with current care until all family is here. (2) Acute on chronic right heart failure: (3) Acute on chronic renal failure: Acute renal failure type: unspecified Chronic kidney disease stage: stage 4 (severe) Qualified Code(s): N17.9 - Acute kidney failure, unspecified; N18.4 - Chronic kidney disease, stage 4 (severe) (4) Acute on chronic respiratory failure with hypoxia: (5) Phimosis: (6) Cor pulmonale: (7) S/P CABG x 4: (8) Status post mitral valve replacement: History of Present Illness Attending Physician: Cornelius Jacobson MD History of Present Illness This 82 year old male with complicated PMH including CAD, Pulmonary HTN, CHF, HTN, dyslipidemia, chronic right CHF, cor pulmonale, aortic regurg, CKD stage IV , CABG, MVR, and others, presented from his scoop filler's office with acute renal failure and hypokalemia. In ED, blood pressure in the 70s, oxygen saturations on room air in 70s. He was placed on bipap with 100% FiO2. Echo reveals severely dilated right ventricle and EF 50-55%. He is requiring pressors (dobutamine and levophed) and high-flow nasal cannula in the ICU. He is in severe right sided heart failure with end-stage heart disease. Patient has been nonadherent to medical plan for many years-- did not wear oxygen at home, did not take pills, etc. Nephrology is following and trying to manage acute renal failure, patient would not want dialysis nor would he be a good candidate. When patient was presented with options for PA catheter, intubation, and full treatment, he did not think he wanted to go through with all of that. Palliative care is consulted to establish goals of care. See A&P for details. Thank you kindly for this consult. I will follow. Allergies Allergy/AdvReac Type Severity Reaction Status Date / Time No Known Allergies Allergy Unverified 06/21/18 08:28 Home Medications Home Medications Medication Instructions Recorded Confirmed Type aspirin [Aspir-81] 81 mg PO DAILY 06/21/18 06/21/18 History atorvastatin 40 mg PO DAILY 06/21/18 06/21/18 History furosemide 80 mg PO BID 06/21/18 06/21/18 History magnesium oxide 400 mg PO DAILY 06/21/18 06/21/18 History metolazone 5 mg PO Q2D 06/21/18 06/21/18 History metoprolol succinate 25 mg PO DAILY 06/21/18 06/21/18 History potassium chloride 20 meq PO BID 06/21/18 06/21/18 History tamsulosin 0.4 mg PO DAILY 06/21/18 06/21/18 History Patient History Medical History CAD (coronary artery disease) (Chronic) Pulmonary HTN (Chronic) CHF (congestive heart failure) (Chronic) Hypertension (Chronic) Dyslipidemia (Chronic) Chronic right-sided CHF (congestive heart failure) (Chronic) Pulmonary hypertension (Chronic) Cor pulmonale (Chronic) Aortic regurgitation (Chronic) CKD (chronic kidney disease), stage IV (Chronic) Surgical History S/P CABG x 4 (Resolved) History of nasal surgery (Resolved) Hx of tonsillectomy (Resolved) Status post mitral valve replacement (Resolved) "bioprosthetic MVR" Family History Other Family history non-contributory Social History Current Living Situation: Spouse current occupational status: retired Other Information That Helps Us Care for You: No Feels Safe at Home: Yes Safety Concerns: Feels Safe At This Time Smoking Status: Never smoker Hx Alcohol Use: Yes Alcohol type: wine Alcohol Intake Frequency: 0-2 drinks per day Hx Substance Use: No Beliefs That Will Affect Care: None Communication Ability: Effective Review of Systems Constitutional: + weakness Respiratory: + cough, + dyspnea and + dyspnea on exertion Cardiovascular: no chest pain and no edema Gastrointestinal: no abdominal pain, no nausea and no vomiting Neurologic: no confusion Psychiatric: no anxiety Physical Exam 2 Vital Signs (Past 24 Hours): Last Vital Signs Temp 36.4 C L 06/22/18 00:01 Pulse 85 06/22/18 06:30 Resp 16 06/22/18 06:30 BP 98/57 L 06/22/18 06:30 Pulse Ox 90 06/22/18 06:30 Constitutional: + ill appearing and + frail appearing; no acute distress Eyes: PERRL right periorbital ecchymosis ENMT: Ears: no hearing impairment Neck: normal visual inspection and trachea midline Cardiovascular: Rate/Rhythm: regular rate and regular rhythm Heart Sounds: + murmur Vessels: no JVD Gastrointestinal (Abdomen): Inspection/Auscultation: abdomen normal to inspection and normal bowel sounds; abdomen not distended Percussion/ Palpation: abdomen soft; abdomen nontender Skin: + ulcer (RLE, draining) and + ecchymosis Neurologic: awake; not confused Psychiatric: Orientation: alert and oriented x 3 Time Spent Midlevel 70 minutes with >50% of time spent at bedside with patient and family discussing condition, goals of care, and EOL issues.
--- NOTE | 2018-06-22 11:01 | Urology Progress Note ---
Date of Service June 22, 2018 Assessment & Plan (1) Phimosis: Plan for palliative care direction Recommend maintain solomon catheter for patient comfort. Thank you for allowing us to participate in this patient's care. Please contact us with any additional questions or concerns. Subjective 82YO M with acute on chronic heart and respiratory failure, difficulty catheter placement. Dense phimosis appreciated by Dr. Pedraza yesterday with successful catheter placement. Solomon catheter remains intact, without leaking or urethral trauma/bleeding noted. Draining clear yellow urine, no clots or sediment. Minimal ecchymosis to posterior scrotum appreciated without significant swelling. Patient denies discomfort with catheter. Physical Exam 2 Vital Signs (Past 24 Hours): Last Vital Signs Temp 36.9 C 06/22/18 08:00 Pulse 94 H 06/22/18 10:00 Resp 22 06/22/18 10:00 BP 91/54 L 06/22/18 10:00 Pulse Ox 86 L 06/22/18 10:00 Physical Exam: Awake but lethargic. Respiratory effort weak, on high flow O2. CV: on conveyor monitor. Skin dry, fragile. : as noted in HPI.
--- NOTE | 2018-06-22 16:18 | Hospitalist Progress Note ---
Date of Service June 22, 2018 Assessment & Plan (1) Acute on chronic respiratory failure with hypoxia: Multifactorial causes as outlined below Appreciate exterior designer input and recommendation Patient is not for any intubation as per his wish Examination has been doing better Appreciate palliative care input and recommendation Awaiting daughter to come from out of state for further decision to be made tomorrow (2) Chronic right-sided CHF (congestive heart failure): (3) Pulmonary HTN: -Admited to ICU -Patient presenting to the ED by referral of outpatient director loan when outpatient labs demonstrated acute renal failure and profound hypokalemia -In the ED, patient was found to be hypoxic on his chronic 3 L as low as 76%; currently requiring BiPAP to maintain saturations ~ 90% -Likely multifactorial secondary to chronic right-sided CHF and severe pulmonary hypertension, possible volume overload from acute renal failure; no clear infiltrate noted on chest x-ray -Prognosis remains poor (4) JOVANNI (acute kidney injury): -Creatinine on presentation 5.3 -No acidosis, no role for urgent dialysis at this time -Gentle IVF given history of right-sided heart failure -Nephrology consult-appreciate input and recommendation -Not a candidate for dialysis at this time -Creatinine remains more than 4.5 (5) Hypokalemia: -Potassium on presentation 2.4 -Replace, monitor potassium levels closely -Check magnesium-was high at 4 on 06/21 -Electrolytes have been supplemented and will be monitored (6) Leg ulcer: -Small ulcer noted to the medial aspect of the right lower leg - reports some intermittent yellow drainage over the past few weeks -Afebrile, no leukocytosis -S/P Vanco, Levaquin, Zosyn ED; will continue with Vanco and Zosyn for now -Blood cultures obtained in ED, check wound culture -Wound care consult (7) Elevated troponin: (8) CAD (coronary artery disease): -Appears stable, no reports chest pain -EKG demonstrates chronic bifascicular block -Initial troponin elevated at 0.221; likely secondary to hypoxia, demand ischemia, acute renal failure -Continue cycle cardiac enzymes, check resting echo -Continue aspirin, statin, beta-niru with holding parameters in place (9) DVT prophylaxis: -SQ heparin (10) Phimosis: Appreciate urology input and recommendation Has been placed Andrews catheter by the urologist Draining urine normally Subjective 82YO M with acute on chronic heart and respiratory failure, difficulty catheter placement. Dense phimosis appreciated by Dr. Pedraza yesterday with successful catheter placement. 06/22 The patient was seen and examined in ICU in presence of the family members He remains stable but critical Denies any acute symptoms of pain, shortness of breath, nausea and/or vomiting or any numbness or tingling in the extremities Complains to have generalized weakness Constitutional: + weakness Ear, Nose, Mouth, Throat: + dry mouth Respiratory: + dyspnea on exertion Musculoskeletal: + joint pain (R hip at times at home prior to admisison and to fall) Endocrine: + fatigue and + polyphagia Physical Exam 2 Vital Signs (Past 24 Hours): Last Vital Signs Temp 36.9 C 06/22/18 08:00 Pulse 90 06/22/18 15:00 Resp 18 06/22/18 15:00 BP 96/60 L 06/22/18 15:00 Pulse Ox 89 L 06/22/18 15:00 Physical Exam: Lying in bed with minimal distress Constitutional: WD/WN, vitals as above + ill appearing Eyes: PERRL, conjunctivae normal, anicteric sclerae ENMT: external ear and nose normal, oropharynx normal Respiratory: normal respiratory effort and + respiratory distress Auscultation: + diminished lung sounds and + wheezes (Faint, scattered, expiratory) Cardiovascular: Rate/Rhythm: regular rate and regular rhythm Vessels: + abnormal peripheral pulses (Very diminished pedal pulses) Gastrointestinal (Abdomen): normal bowel sounds, soft, nontender, no hepatosplenomegaly Musculoskeletal: Extremities: + cyanosis (Noted to the nailbeds and earlobes) ; no clubbing Skin: no rashes, warm and dry Neurologic: awake Generally weak, no focal neuro deficit Psychiatric: A+Ox3, euthymic affect Results & Data Laboratory Results Short CBC 06/22/18 Range/Units 04:46 WBC 7.06 (4.8-10.8) K/uL Hgb 15.3 (14.0-18.0) g/dL Hct 43.9 (42-52) % Plt Count 159 (130-400) K/uL BMP 06/21/18 06/21/18 06/22/18 19:29 20:38 04:46 Sodium 127 L 127 L Potassium 2.8 L D 2.9 L Chloride 89 L 90 L Carbon Dioxide 22 23 BUN 137 H 134 H Creatinine 5.12 H* D 4.98 H* Glucose 96 109 H Calcium 8.3 L 8.3 L Cardiac Enzymes 06/21/18 Range/Units 19:29 Troponin I 0.225 H* (0-0.045) ng/ml Urine 06/21/18 Range/Units Unknown Urine Color [place] Urine Appearance Turbid H (Clear) Urine pH 5.0 (4.5-7.5) Ur Specific [place] 1.021 (1.000-1.030) Urine Protein 2+ H (Negative) Urine Glucose (UA) Negative (Negative) Medications Administered Current Inpatient Medications Aspirin (Ecotrin Ectab) 81 mg PO DAILY [facility] Stop: 07/22/18 08:59 Last Admin: 06/22/18 08:49 Dose: Not Given Atorvastatin Calcium (Lipitor) 40 mg PO DAILY [facility] Stop: 07/22/18 08:59 Last Admin: 06/22/18 08:50 Dose: Not Given Heparin Sodium (Porcine) (Heparin Sodium (Porcine)) 5,000 units SQ Q8 [facility] Stop: 07/21/18 21:59 Last Admin: 06/22/18 14:13 Dose: 5,000 units Norepinephrine Bitartrate 8 mg (/ Dextrose) 508 mls @ 43.95 mls/hr IV .[id number] [facility]; Protocol Stop: 07/21/18 12:14 Last Admin: 06/22/18 15:25 Dose: 0.14 mcg/kg/min, 44 mls/hr Dobutamine HCl/Dextrose (Dobutamine / D5w) 500 mg in 250 mls @ 12.36 mls/hr IV .[id number] [facility]; Protocol Stop: 07/21/18 12:27 Last Admin: 06/22/18 08:49 Dose: 5 mcg/kg/min, 12.4 mls/hr Furosemide 60 mg/ Syringe 6 mls @ 4 mls/min IV TID [facility] Stop: 07/22/18 08:59 Last Admin: 06/22/18 15:03 Dose: 4 mls/min Lidocaine HCl (Xylocaine Jely 2%) 0 ml EXT UD PRN PRN Reason: Pain Stop: 07/21/18 11:11 Miscellaneous (Icu Protocol For Hyperglycemia) 1 ea N/A PRN PRN; Protocol PRN Reason: Hyperglycemia Protocol Stop: 06/23/18 10:05
[2018-06-22 16:58] LABS: BUN Creatinine Ratio 26.8 (10-20); Calcium 8.8 mg/dl (8.5-10.1); Creatinine Clr Calc Pharmacy 12.1 ml/min; Est GFR (African American) 12.3; Est GFR (Non-African American) 10.6
[2018-06-22 16:59] LABS: Potassium 3.5 mmol/L (3.5-5.1)
--- NOTE | 2018-06-22 21:31 | Critical Care Progress Note ---
Date of Service June 22, 2018 Assessment & Plan (1) Hypotension: Impression: 1. Cardiogenic shock secondary to severe pulmonary hypertension and dilated RV. 2. Non-ST elevation [place], likely secondary to above. 3. Acute on chronic kidney insufficiency, ischemic due to poor forward flow and poor cardiac output. 4. Hypoxia, which could be contributing to his symptoms, no evidence of PFO at the moment, pulmonary hypertension is the cause of it. 5. Severe cor pulmonale. 6. Coronary artery disease status post CABG in 2009. 7. Phimosis. Plan: 1. Discussion took place with the patient, his family, awaiting other family member to arrive from [place], they are all in agreement of comfort measures only. 2. Appreciate urology consult. 3. Appreciate renal consult, Dr. Trejo discussed with the patient, patient was placed on Lasix, no urine output. 4. Appreciate cardiology consult, poor prognosis and the patient will continue with the current medication. 5. Discontinue dobutamine drip per patient request. 6. Discontinue levo fed. 7. Continue OptiFlow.. 8. Appreciate palliative care. 9. The patient decided to go for comfort measures only awaiting the arrival of the rest of his family to be with them. 10. Allow the patient for oral intake. 11. Transfer the patient to private room with comfort only. 12. Appreciate acceptance of this patient to regular floor. Case discussed with the staff, multiple principles, appreciate their input, critical care time spent with the patient including family talks was 60 minutes. Subjective The patient continued to do poorly, continues to have shortness of breath, extremely lethargic, denies any pain, no nausea or vomiting, poor appetite and poor oral intake, no bowel movement. Swelling in the lower extremities with discoloration of the skin continued. Physical Exam 2 Vital Signs (Past 24 Hours): Last Vital Signs Temp 36.8 C 06/22/18 20:00 Pulse 94 H 06/22/18 20:00 Resp 20 06/22/18 20:00 BP 89/52 L 06/22/18 20:00 Pulse Ox 89 L 06/22/18 20:00 Physical Exam: His vital signs remains borderline with blood pressure 89/52, pulse rate of 94, in A. fib, O2 sat 89% on high flow 55 L, 95%. Ecchymosis at the right orbit area, positive JVP, S1-S2 irregularly irregular, lungs with rhonchi at the bases, abdomen is benign, skin discoloration in the lower extremities, edema. Results & Data Laboratory Results Labs were reviewed, CBC are acceptable, sodium is 126 potassium 3.4 and BUN and creatinine 126 and 4.79. Diagnostic Findings No new imaging.
[2018-06-22] MEDS ORDERED: MoRPHine SULFATE 2 MG/ML CARP IV PRN (21:55)
[2018-06-22] MEDS ORDERED: LORazepam 0.5 MG/1 ML VIAL IV PRN (21:55)
[2018-06-23] MEDS: MoRPHine SULFATE 2 MG/ML CARP IV PRN ×4 (00:05→06:08)
[2018-06-23] MEDS ORDERED: ATROPINE SULFATE 1% OP SOLN 2 ML BTL SL PRN (04:09)
--- NOTE | 2018-06-23 12:52 | Hospitalist Progress Note ---
Date of Service June 23, 2018 Assessment & Plan (1) Acute on chronic respiratory failure with hypoxia: Multifactorial causes as outlined below Appreciate business job titles input and recommendation Patient is not for any intubation as per his wish Examination has been doing better Appreciate palliative care input and recommendation Awaiting daughter to come from out of state for further decision to be made tomorrow He was pronounced at 9:45 AM on 23 June 2018 (2) Chronic right-sided CHF (congestive heart failure): (3) Pulmonary HTN: -Admited to ICU -Patient presenting to the ED by referral of outpatient wheel roller when outpatient labs demonstrated acute renal failure and profound hypokalemia -In the ED, patient was found to be hypoxic on his chronic 3 L as low as 76%; currently requiring BiPAP to maintain saturations ~ 90% -Likely multifactorial secondary to chronic right-sided CHF and severe pulmonary hypertension, possible volume overload from acute renal failure; no clear infiltrate noted on chest x-ray -Prognosis remains poor (4) JOVANNI (acute kidney injury): -Creatinine on presentation 5.3 -No acidosis, no role for urgent dialysis at this time -Gentle IVF given history of right-sided heart failure -Nephrology consult-appreciate input and recommendation -Not a candidate for dialysis at this time -Creatinine remains more than 4.5 (5) Hypokalemia: -Potassium on presentation 2.4 -Replace, monitor potassium levels closely -Check magnesium-was high at 4 on 06/21 -Electrolytes have been supplemented and will be monitored (6) Leg ulcer: -Small ulcer noted to the medial aspect of the right lower leg - reports some intermittent yellow drainage over the past few weeks -Afebrile, no leukocytosis -S/P Vanco, Levaquin, Zosyn ED; will continue with Vanco and Zosyn for now -Blood cultures obtained in ED, check wound culture -Wound care consult (7) Elevated troponin: (8) CAD (coronary artery disease): -Appears stable, no reports chest pain -EKG demonstrates chronic bifascicular block -Initial troponin elevated at 0.221; likely secondary to hypoxia, demand ischemia, acute renal failure -Continue cycle cardiac enzymes, check resting echo -Continue aspirin, statin, beta-niru with holding parameters in place (9) DVT prophylaxis: -SQ heparin (10) Phimosis: Appreciate urology input and recommendation Has been placed Andrews catheter by the urologist Draining urine normally Subjective 82YO M with acute on chronic heart and respiratory failure, difficulty catheter placement. Dense phimosis appreciated by Dr. Pedraza yesterday with successful catheter placement. 06/22 The patient was seen and examined in ICU in presence of the family members He remains stable but critical Denies any acute symptoms of pain, shortness of breath, nausea and/or vomiting or any numbness or tingling in the extremities Complains to have generalized weakness 06/23 The patient ceased to breathe at 945 this morning I was called to pronounce Constitutional: + weakness Ear, Nose, Mouth, Throat: + dry mouth Respiratory: + dyspnea on exertion Musculoskeletal: + joint pain (R hip at times at home prior to admisison and to fall) Endocrine: + fatigue and + polyphagia Physical Exam 2 Vital Signs (Past 24 Hours): Last Vital Signs Temp 36.8 C 06/22/18 20:00 Pulse 94 H 06/22/18 20:00 Resp 20 06/22/18 20:00 BP 89/52 L 06/22/18 20:00 Pulse Ox 89 L 06/22/18 20:00 Physical Exam: Totally unresponsive No spontaneous bleeding No palpable pulse and no audible heart sounds Pupils dilated and fixed Pronounced at 9:45 AM on 23 June 2018
--- NOTE | 2018-06-24 08:27 | Discharge Summary ---
Date of Service June 24, 2018 Admission HPI Per Admitting Provider 82-year-old male who was referred to the ED by his outpatient specimen collector for evaluation of abnormal labs. Patient was evaluated in the cardiology clinic yesterday for evaluation of shortness of breath and weight gain. Patient reported this was a "routine visit" however review of outpatient documentation reports it was an acute appointment. At that visit, patient was found to be up 12 pounds from his prior clinic visit. It was also noted that he was taking his Lasix and metolazone inappropriately, taking Lasix only daily some days and metolazone only weekly and at the same time as Lasix. Patient has labs ordered yesterday which demonstrated creatinine 4.9 and potassium 2.1. He was advised to come to the ED at that time however he declined secondary to poor road conditions. In the ED today, patient was found to be hypoxic on his chronic 3 L at 78%. He is currently requiring BiPAP to maintain saturations ~ 90%. Patient actually offers no complaints currently. He feels as though he has been at his usual state of health recently. He reports chronic exertional shortness of breath which is unchanged from baseline. No chest pain or palpitations. He denies lightheadedness, dizziness, diaphoresis, syncopal events. He has had a poor appetite but denies nausea, vomiting, diarrhea. No fevers or chills. He denies any urinary symptoms. Patient is noted to have a small ulcer on the lower medial aspect of his right leg. reports this has been present for the past few weeks and has been occasionally oozing some yellow drainage. She has been putting ointment on the ulcer. Labs in the ED showed creatinine 5.3, potassium 2.1. Patient was given IVF, potassium replacement, IV Vanco, IV Zosyn, IV Levaquin. Admission Exam Per Admitting Provider Vital Signs (Past 24 Hours): Last Vital Signs Temp 36.4 C L 06/21/18 07:16 Pulse 67 06/21/18 08:25 Resp 22 06/21/18 08:25 BP 101/62 06/21/18 08:25 Pulse Ox 92 06/21/18 08:25 Constitutional: WD/WN, vitals as above + ill appearing Resting in bed comfortably on BiPAP Eyes: PERRL, conjunctivae normal, anicteric sclerae Right periorbital ecchymosis ENMT: external ear and nose normal, oropharynx normal Respiratory: normal respiratory effort; no respiratory distress Auscultation: + wheezes (Faint, scattered, expiratory) Scattered coarse breath sounds Cardiovascular: Rate/Rhythm: regular rate and regular rhythm Vessels: + abnormal peripheral pulses (Very diminished pedal pulses) Gastrointestinal (Abdomen): normal bowel sounds, soft, nontender, no hepatosplenomegaly Musculoskeletal: Extremities: + cyanosis (Noted to the nailbeds and earlobes ); no clubbing Skin: no rashes, warm and dry Dark purple/chronic vascular changes noted to bilateral lower extremities Small ulcer noted to the medial aspect of the left lower leg -no significant drainage noted Neurologic: PERRL, EOMI, accommodation nl, no face palsy, no dysarthria Psychiatric: A+Ox3, euthymic affect Principal Diagnosis Causes of : 1. Cardiogenic shock 2. Severe pulmonary hypertension 3. Cor pulmonale 4. Non-ST elevation [place] Discharge Exam Discharge Data Allergies Allergy/AdvReac Type Severity Reaction Status Date / Time No Known Allergies Allergy Unverified 06/21/18 08:28 Consultations 06/21/18 07:54 Consult Transverse Abdominal Muscle Surgeon Stat 06/21/18 08:08 ED Decision to Admit Stat 06/21/18 10:06 Consult Case Management - Discharge Planning Routine Consult Transverse Abdominal Muscle Surgeon Routine Consult Nephrology Routine 06/21/18 10:54 Consult Urology Routine 06/21/18 12:23 Consult Cardiology Routine 06/21/18 14:27 Consult Palliative Care Routine Ordered Studies 06/21/18 10:06 US venous doppler [facility] Urgent Hospital Course (1) Acute on chronic respiratory failure with hypoxia: Multifactorial causes as outlined below Appreciate commercial crabber input and recommendation Patient is not for any intubation as per his wish Examination has been doing better Appreciate palliative care input and recommendation Awaiting daughter to come from out of state for further decision to be made tomorrow He was pronounced at 9:45 AM on 23 June 2018 (2) Chronic right-sided CHF (congestive heart failure): (3) Pulmonary HTN: -Admited to ICU -Patient presenting to the ED by referral of outpatient specimen collector when outpatient labs demonstrated acute renal failure and profound hypokalemia -In the ED, patient was found to be hypoxic on his chronic 3 L as low as 76%; currently requiring BiPAP to maintain saturations ~ 90% -Likely multifactorial secondary to chronic right-sided CHF and severe pulmonary hypertension, possible volume overload from acute renal failure; no clear infiltrate noted on chest x-ray -Prognosis remains poor (4) JOVANNI (acute kidney injury): -Creatinine on presentation 5.3 -No acidosis, no role for urgent dialysis at this time -Gentle IVF given history of right-sided heart failure -Nephrology consult-appreciate input and recommendation -Not a candidate for dialysis at this time -Creatinine remains more than 4.5 (5) Hypokalemia: -Potassium on presentation 2.4 -Replace, monitor potassium levels closely -Check magnesium-was high at 4 on 06/21 -Electrolytes have been supplemented and will be monitored (6) Leg ulcer: -Small ulcer noted to the medial aspect of the right lower leg - reports some intermittent yellow drainage over the past few weeks -Afebrile, no leukocytosis -S/P Vanco, Levaquin, Zosyn ED; will continue with Vanco and Zosyn for now -Blood cultures obtained in ED, check wound culture -Wound care consult (7) Elevated troponin: (8) CAD (coronary artery disease): -Appears stable, no reports chest pain -EKG demonstrates chronic bifascicular block -Initial troponin elevated at 0.221; likely secondary to hypoxia, demand ischemia, acute renal failure -Continue cycle cardiac enzymes, check resting echo -Continue aspirin, statin, beta-niru with holding parameters in place (9) DVT prophylaxis: -SQ heparin (10) Phimosis: Appreciate urology input and recommendation Has been placed Andrews catheter by the urologist Draining urine normally Total Time Total Time Spent Total Time Spent (In Minutes): 20 minutes Total Time Includes: Examination of the Patient and Other (Talking to the Family members) Discharge Plan Discharge Items Disposition: Reason For Visit: RESP FAILURE Admission Data Admit Date/Time: 06/21/18 08:11 Attending Provider: Cornelius Jacobson Admit Provider: Ash Crawley Primary Care Provider: Boris Perez Other Providers: Nguyen Mcdonald ; Ash Crawley ; Peri Coffey ; Khadar Shepard ; Liliana Ramirez ; Evan Rivas Service: Oncology Other DC Date/Time DO NOT enter until pt leaves facility: 06/23/18 09:45
--- NOTE | 2018-06-24 12:03 | Coding Query ---
PRESENT ON ADMISSION QUERY To promote full compliance with coding requirements relating to pateint care, physician participation is requested in all cases of creative designer uncertainty. Please assist us with the question(s) below: Please place an X within the parenthesis (x). The following diagnosis(es) listed in this patient's medical record require physician assistance to determine if they were present on admission (POA) or not. Please advise for each diagnosis whether it was present on admission, not present on admission, or if it was clinically undetermined. 1. NON-ST ELEVATION NM (elevated troponin documented & possible demand ischemia early with Critical Care documenting NSTEMI and Discharge Summary documents Non-ST elevation NM under causes of ) (+ ) Present On Admission ( ) Not Present On Admission ( ) Clinically Undetermined Thank you Kerri Chino *Definition of the present on admission (POA)-Present on admission is defined as present at the time the order for inpatient admission occurs. Conditions that develop during an outpatient encounter prior to a written order for inpatient admission (including emergency department, observation, or outpatient surgery) are considered present on admission. MOE
--- NOTE | 2018-06-24 12:08 | Coding Query ---
To promote full compliance with coding requirements relating to patient care, provider participation is requested in all cases of soil sampler uncertainty. Please assist us with the question(s) below: Coding Question(s): The diagnosis(es) below was documented in the H&P then subsequently fell off all further documentation. Please indicate if it is still a possible diagnosis or ruled out. Physician's Response(s): POSSIBLE DIASTOLIC CHF EXACERBATION (documented at bottom of H&P by Supervising Physician) ( ) Diagnosed and POA ( ) Diagnosed and not POA ( + ) Ruled out ( ) Other (please specify) MTDD
== END 2018-06-23 09:45 | disposition expired ==
LOC: ED 06:52 → SUATTDRO 08:11 → 1E 08:11 → 4E 06-22 19:53